=== PATIENT | male | born 1960 ===

== ENCOUNTER 2019-12-01 07:18 | Outpatient (REF) | payer OTHER, SELFPAY | END 2019-12-01 07:19 | disposition home or self-care (01) | LOC: HO.MDS 07:18 | PROVIDERS: PCP Internal Medicine; Visit Provider Internal Medicine Pulmonary Disease | DX: J45.909 Unspecified asthma, uncomplicated (principal) | CPT/HCPCS: 96372; J2357 ==

== ENCOUNTER 2019-12-15 07:10 | Outpatient (REF) | payer OTHER, SELFPAY | END 2019-12-15 07:11 | disposition home or self-care (01) | LOC: HO.MDS 07:10 | PROVIDERS: PCP Internal Medicine; Visit Provider Internal Medicine Pulmonary Disease | DX: J45.909 Unspecified asthma, uncomplicated (principal) | CPT/HCPCS: 96372; J2357 ==

== ENCOUNTER 2019-12-29 07:15 | Outpatient (REF) | payer OTHER, SELFPAY | END 2019-12-29 07:16 | disposition home or self-care (01) | LOC: HO.MDS 07:15 | PROVIDERS: PCP Internal Medicine; Visit Provider Internal Medicine Pulmonary Disease | DX: J45.909 Unspecified asthma, uncomplicated (principal) | CPT/HCPCS: 96372; J2357 ==

== ENCOUNTER 2020-01-12 07:11 | Outpatient (REF) | payer OTHER, SELFPAY | END 2020-01-12 07:12 | disposition home or self-care (01) | LOC: HO.MDS 07:11 | PROVIDERS: PCP Internal Medicine; Visit Provider Internal Medicine Pulmonary Disease | DX: J45.909 Unspecified asthma, uncomplicated (principal) | CPT/HCPCS: 96372; J2357 ==

== ENCOUNTER 2020-01-26 07:21 | Outpatient (REF) | payer OTHER, SELFPAY | END 2020-01-26 07:22 | disposition home or self-care (01) | LOC: HO.MDS 07:21 | PROVIDERS: PCP Internal Medicine; Visit Provider Internal Medicine Pulmonary Disease | DX: J45.909 Unspecified asthma, uncomplicated (principal) | CPT/HCPCS: J2357 ==

== ENCOUNTER 2020-02-09 07:15 | Outpatient (REF) | payer OTHER, SELFPAY | END 2020-02-09 07:16 | disposition home or self-care (01) | LOC: HO.MDS 07:15 | PROVIDERS: PCP Internal Medicine; Visit Provider Internal Medicine Pulmonary Disease | DX: J45.51 Severe persistent asthma with (acute) exacerbation (principal) | CPT/HCPCS: 96372; J2357 ==

== ENCOUNTER 2020-02-23 07:08 | Outpatient (REF) | payer OTHER, SELFPAY | END 2020-02-23 07:09 | disposition home or self-care (01) | LOC: HO.MDS 07:08 | PROVIDERS: PCP Internal Medicine; Visit Provider Internal Medicine Pulmonary Disease | DX: J45.50 Severe persistent asthma, uncomplicated (principal) | CPT/HCPCS: 96372; J2357 ==

== ENCOUNTER 2020-03-08 07:11 | Outpatient (REF) | payer OTHER, SELFPAY | END 2020-03-08 07:12 | disposition home or self-care (01) | LOC: HO.MDS 07:11 | PROVIDERS: PCP Internal Medicine; Visit Provider Internal Medicine Pulmonary Disease | DX: J45.50 Severe persistent asthma, uncomplicated (principal) | CPT/HCPCS: 96372; J2357 ==

== ENCOUNTER 2020-03-23 07:16 | Outpatient (REF) | payer OTHER, SELFPAY | END 2020-03-23 07:17 | disposition home or self-care (01) | LOC: HO.MDS 07:16 | PROVIDERS: PCP Internal Medicine; Visit Provider Internal Medicine Pulmonary Disease | DX: J45.51 Severe persistent asthma with (acute) exacerbation (principal) | CPT/HCPCS: 96372; J2357 ==

== ENCOUNTER 2020-04-05 07:01 | Outpatient (REF) | payer OTHER, SELFPAY | END 2020-04-05 07:02 | disposition home or self-care (01) | LOC: HO.MDS 07:01 | PROVIDERS: PCP Internal Medicine; Visit Provider Internal Medicine Pulmonary Disease | DX: J45.50 Severe persistent asthma, uncomplicated (principal) | CPT/HCPCS: 96372; J2357 ==

== ENCOUNTER 2020-04-19 07:10 | Outpatient (REF) | payer OTHER, SELFPAY | END 2020-04-19 07:11 | disposition home or self-care (01) | LOC: HO.MDS 07:10 | PROVIDERS: PCP Internal Medicine; Visit Provider Internal Medicine Pulmonary Disease | DX: J45.51 Severe persistent asthma with (acute) exacerbation (principal) | CPT/HCPCS: 96372; J2357 ==

== ENCOUNTER 2020-05-03 07:10 | Outpatient (REF) | payer OTHER, SELFPAY | END 2020-05-03 07:11 | disposition home or self-care (01) | LOC: HO.MDS 07:10 | PROVIDERS: PCP Internal Medicine; Visit Provider Internal Medicine Pulmonary Disease | DX: J45.50 Severe persistent asthma, uncomplicated (principal) | CPT/HCPCS: 96372; J2357 ==

== ENCOUNTER 2020-05-17 07:04 | Outpatient (REF) | payer OTHER, SELFPAY | END 2020-05-17 07:05 | disposition home or self-care (01) | LOC: HO.MDS 07:04 | PROVIDERS: PCP Internal Medicine; Visit Provider Internal Medicine Pulmonary Disease | DX: J45.50 Severe persistent asthma, uncomplicated (principal) | CPT/HCPCS: 96372; J2357 ==

== ENCOUNTER 2020-07-01 12:44 | Outpatient (REF) | payer OTHER, SELFPAY ==
[2020-07-01 14:31] LABS: MANUAL DIFF FLAG NO
[2020-07-01 14:36] LABS: Basophils Absolute Auto 0.1 X10*3/uL (0.0-0.2); Basophils Percent Auto 1.3 % (0-2); Eosinophils Absolute Auto 0.8 X10*3/uL (0.0-0.4); Hematocrit 49.2 % (42-52); Hemoglobin 16.4 g/dl (14.0-18.0); Imm Gran Abs Auto 0.03 X10*3/uL (0.00-0.03); Imm Gran Pct Auto 0.4 % (0.0-0.4); Lymphocytes Absolute Auto 1.4 X10*3/uL (1.2-4.9); Lymphocytes Percent Auto 19.7 % (20-40); Mean Corpuscular HGB Conc 33.3 g/dl (31.0-36.0); Mean Corpuscular Hemoglobin 31.9 pg (27.0-33.0); Mean Corpuscular Volume 95.7 fL (80-98); Mean Platelet Volume 9.8 fL (9.4-12.4); Monocytes Absolute Auto 0.7 X10*3/uL (0.1-1.2); Monocytes Percent Auto 9.3 % (2-11); Neutrophils Absolute Auto 4.2 X10*3/uL (2.0-8.3); Neutrophils Percent Auto 58.3 % (45-73); Platelet Count 198 X10*3/uL (160-400); Red Blood Count 5.14 X10*6/uL (4.60-5.80); Red Cell Distribution Width 13.3 % (11.0-16.0); White Blood Count 7.1 X10*3/uL (4.8-10.8)
[2020-07-01 14:52] LABS: D Dimer 3286 NG/ML
[2020-07-01 14:57] LABS: Anion Gap 13 (12-20); Blood Urea Nitrogen 14 mg/dL (9-16); Carbon Dioxide 26 mmol/L (22-29); Chloride 101 mmol/L (96-108); Estimated Glomerular Filt Rate > 60; Glucose Random 93 mg/dL (60-115); Potassium 4.1 mmol/L (3.3-5.1); Sodium 136 mmol/L (135-145)
[2020-07-01 15:22] LABS: Erythrocyte Sedimentation Rate 8 MM/HR (0-15)
[2020-07-02 10:07] LABS: Immunoglobulin E 776 kU/L (<OR=114)
== END 2020-07-01 12:45 | disposition home or self-care (01) ==
LOC: HO.LAB 12:44
PROVIDERS: PCP Internal Medicine; Visit Provider Hospitalist
DX: J45.50 Severe persistent asthma, uncomplicated (principal); R06.02 Shortness of breath; R78.89 Finding of other specified substances, not normally found in blood
CPT/HCPCS: 36415; 80048; 82785; 85025; 85379; 85652

== ENCOUNTER 2020-07-01 16:53 | Observation (INO) | payer OTHER, SELFPAY ==
--- NOTE | ~2020-07-01 | CT_ITS ---
EXAMINATION: CT ANGIOGRAM OF THE CHEST WITH AND WITHOUT CONTRAST (CT PULMONARY ANGIOGRAM FOR PE) CLINICAL INFORMATION: Reason for Exam pt c elevated d-dimer c sob sent in by space control agent COMPARISON: None TECHNIQUE: Prior to contrast administration, noncontrast localization images were obtained. Subsequently, multidetector volumetric imaging was performed from the thoracic inlet to below the diaphragms following the administration of 65 mL Omnipaque 350 intravenous contrast. No contrast reaction reported Sagittal, coronal, and MIP oblique sagittal reformatted images were obtained on the CT workstation, uploaded to PACS, and reviewed. This CT examination was performed using dose optimization techniques as appropriate, variously including the following: *Automated exposure control *Adjustment of mA and/or kV according to patient size (this includes techniques or standardized protocols for targeted exams where dose is matched to indication/reason for exam; i.e. extremities or head) *Use of iterative reconstruction technique Total exam dose-length product 486 mGy-cm FINDINGS: QUALITY OF STUDY/CONTRAST BOLUS: Suboptimal. PULMONARY ARTERIES: No central emboli. It is difficult given the quality to evaluate for segmental pulmonary emboli but no large occlusive thrombi are detected. THORACIC AORTA: No aneurysm or dissection. There is a common trunk of the brachiocephalic and left carotid. LUNG: No focal consolidation, nodules or masses. PLEURA: No pleural effusion or pneumothorax. MEDIASTINUM: Normal heart size. No pericardial effusion. Mildly prominent right hilar lymph node present but no gross hilar or mediastinal lymphadenopathy. No evidence of septal bowing or right heart strain. CHEST WALL/AXILLA: No axillary or internal mammary lymphadenopathy. OSSEOUS STRUCTURES: No acute or suspicious osseous abnormality. UPPER ABDOMEN: Unremarkable. No reflux of contrast into the hepatic veins to suggest elevated right heart pressures. CT/CT angio chest PE protocol IMPRESSION: Very poor quality study. No large central pulmonary emboli. Evaluation segmental emboli is more difficult due to the poor quality. VTE: Negative but extremely limited
--- NOTE | ~2020-07-01 | NM_ITS ---
EXAMINATION: NM LUNG IMAGE PERFUSION PULMONARY PERFUSION ONLY STUDY: CLINICAL INDICATION: Shortness of breath., History of asthma. PROCEDURE: Following the intravenous administration of 4.0 millicuries technetium 99m MAA, images of the chest were obtained in multiple projections using a gamma scintiphotographic camera. COMPARISON: CTA of the chest done on 07/01/2020. PERFUSION IMAGES: 1 moderate size segment of perfusion defect is present within the right upper lobe. No other no other segmental perfusion defect is seen on either side. Both lungs appear clear on prior CT study done yesterday. Using the perfusion only modified PIOPED 2 criteria, the study is considered to be nondiagnostic. NM/UT pul perfusion IMPRESSION: Single moderate sized segmental perfusion defect is present within the right upper lobe. Using the perfusion only modified PIOPED 2 criteria, the study is considered to be nondiagnostic for PE.
--- NOTE | ~2020-07-01 | US_ITS ---
EXAMINATION: BILATERAL LOWER EXTREMITY DEEP VENOUS ULTRASOUND CLINICAL INFORMATION: Question PE COMPARISON: No similar prior examinations are available for comparison. TECHNIQUE: Duplex Doppler imaging with compression maneuvers were performed of the bilateral lower extremity deep venous systems. Today's examination is mildly limited secondary to patient body habitus. FINDINGS: The bilateral visualized common femoral, femoral and popliteal veins demonstrate normal compressibility and color flow without evidence of venous thrombosis. Visualized portions of the bilateral calf veins demonstrate normal color fill-in suggesting patency. There is no evidence of a Cisse's cyst. US/US venous duplex LE BI IMPRESSION: No evidence of deep venous thrombosis involving the bilateral lower extremities.
[2020-07-01 19:03] VITALS: BP 186/83; PULSE 72; RESP 16; TEMP 36.9; O2SAT 99; BMI 59.6
--- NOTE | 2020-07-01 19:15 | ECG_ITS ---
Test Reason : SOB Blood Pressure : / mmHG Vent. Rate : 074 BPM Atrial Rate : 074 BPM P-R Int : 308 ms QRS Dur : 114 ms QT Int : 408 ms P-R-T Axes : 035 -51 056 degrees QTc Int : 452 ms Sinus rhythm with 1st degree A-V block Left anterior fascicular block Voltage criteria for left ventricular hypertrophy Abnormal ECG When compared with ECG of 18-OCT-2010 02:41, Left anterior fascicular block is now Present Referred By: Cielo Craig Electronically Signed By:Aristides Camp
[2020-07-01 20:00] VITALS: BP 168/84; PULSE 77; RESP 16; TEMP 36.9; O2SAT 99
[2020-07-01] MEDS: iohexoL 350 MG/ML 100 ML INFUS..BTL IV (20:21)
--- NOTE | 2020-07-01 20:38 | ED.SOB ---
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 He reports that he has been suffering for asthma for over the past 2-3 years and was on Xolair which was controlling his asthma up until approximately 2-3 months ago when his insurance did not cover any longer and he was switched to Flovent/albuterol and since then his cough, wheezing, shortness of breath/dyspnea on exertion and pain with inspiration has been worse. Therefore he followed up with Dr. Bryant and they decided to do blood work including a D-dimer and a D-dimer was in the 3000 therefore he recommended him to come to the emergency department for further evaluation and treatment to rule out a PE. Patient denies any fevers, dizziness, lightheadedness, nausea/vomiting, chest pain, orthopnea, palpitations, lower extremity edema, abdominal pain, back pain or any other symptoms complaints or concerns at this time. Denies recent travel and a long plane train or car ride, hypercoagulation disorder, history of cancer, history of estrogen usage, recent trauma, drug usage, recent surgery or immobilization. <ROMMEL Amador Last Filed: 07/02/20 01:22> MD elicited complaint: shortness of breath, cough and pain with inspiration <ROMMEL Amador Last Filed: 07/02/20 01:22> Pertinent past history: asthma <ROMMEL Amador Last Filed: 07/02/20 01:22> Onset (ago): month(s) (The past 2-3 months worse this week) <ROMMEL Amador - Last Filed: 07/02/20 01:22> Context: occurred during exertion <ROMMEL Amador Last Filed: 07/02/20 01:22> Timing: constant and progressively worsening <ROMMEL Amador - Last Filed: 07/02/20 01:22> Severity: moderate <ROMMEL Amador Last Filed: 07/02/20 01:22> Exacerbating factors: exertion, coughing, inspiration, talking and deep breaths <ROMMEL Amador - Last Filed: 07/02/20 01:22> Relieving factors: nothing <ROMMEL Amador Last Filed: 07/02/20 01:22> Known history of: asthma <ROMMEL Amador Last Filed: 07/02/20 01:22> Associated symptoms: pain with inspiration, cough and wheezing <ROMMEL Amador - Last Filed: 07/02/20 01:22> Treatment prior to arrival: other (Flovent and albuterol inhaler) <ROMMEL Amador Last Filed: 07/02/20 01:22> Related Data Home oxygen amount: none <ROMMEL Amador Last Filed: 07/02/20 01:22> Home Medications: Home Medications Medication Instructions Recorded Confirmed albuterol sulfate 2.5 mg CONTINUOUS NEBULIZATION Q6H 07/14/20 PRN ml Previous Rx's Medication Instructions Recorded fluticasone fur. 200 mcg-umeclid 1 inh INHALATION DAILY 30 Days #60 07/01/20 62.5 mcg-vilant 25 mcg ea inhalat.powder montelukast 10 mg tablet 10 mg PO BEDTIME 30 Days #30 tab 07/01/20 amlodipine 5 mg tablet 5 mg PO DAILY 90 Days #90 tab 07/14/20 <ROMMEL Amador Last Filed: 07/02/20 01:22> Allergies/Adverse Reactions: Allergies Allergy/AdvReac Type Severity Reaction Status Date / Time No Known Allergies Allergy Verified 07/14/20 10:20 <ROMMEL Amador - Last Filed: 07/02/20 01:22> Review of Systems Review of Systems: Constitutional : No Weight loss, No Fever, No Chills, No Night Sweats, No Fatigue, No Malaise ENT/Mouth : No Hearing loss, No Ear Pain, No Nasal Congestion, No Sinus Pain, No Hoarseness, No sore throat, No Rhinorrhea, No Swallowing Difficulty Eyes: No Eye Pain, No Swelling, No Redness, No Foreign Body, No Discharge, No Vision Changes Cardiovascular : Positive SOB/Dyspnea on Exertion, No Chest Pain, No Orthopnea, No Edema, No extremity swelling, No Palpitations Respiratory : Positive Cough, positive wheezing, positive dubon colored sputum Gastrointestinal : No Nausea, No Vomiting, No Diarrhea, No abdominal Pain, No Hematochezia, No Melena Genitourinary : No irregular bleeding, No Dysuria, No Urinary Frequency, No Hematuria, No Urinary Incontinence, No Urgency, No Flank Pain, No Urinary Flow Changes, No Hesitancy Musculoskeletal : No joint pain, No Myalgias, No Joint Swelling Skin : No Skin Lesions, No rash Neuro : No Weakness, No Numbness, No Paresthesias, No Loss of Consciousness, No Dizziness, No Headache Psych : No Anxiety/Panic, No Depression, No SI/HI/AH/VH Heme/Lymph: No Bruising, No Bleeding,No Lymphadenopathy Endocrine : No Polyuria, No Polydipsia, No Temperature Intolerance <ROMMEL Amador - Last Filed: 07/02/20 01:22> Yes all other systems are reviewed and are negative <ROMMEL Amador - Last Filed: 07/02/20 01:22> [facility]LY [facility] Past Medical History Attestation statement: The following information was validated with the patient. 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 <ROMMEL Amador Last Filed: 07/02/20 01:22> Social History Social History: Social History Household Members: Spouse Housing: House Do you presently have visiting nurse or other home services: No Alcohol intake: current Alcohol intake frequency: a few times a week Patient Tobacco Use Status: Never used Tobacco service: No Current occupational status: employed <ROMMEL Amador - Last Filed: 07/02/20 01:22> Physical Exam Vital Signs: Vital Signs: Last Vital Signs Temp 97.1 F 07/03/20 11:42 Pulse 73 07/03/20 11:42 Resp 19 07/03/20 11:42 BP 153/72 H 07/03/20 11:42 Pulse Ox 96 07/03/20 11:42 Body Mass Index 59.6 vital signs have been reviewed as normal and appeared to be correct. Blood pressure hypertensive at 186/83. Heart rate normal. Respiration rate normal. Temperature normal. Oxygen saturation normal. <ROMMEL Amador - Last Filed: 07/02/20 01:22> Vital Signs: Last Vital Signs Temp 97.1 F 07/03/20 11:42 Pulse 73 07/03/20 11:42 Resp 19 07/03/20 11:42 BP 153/72 H 07/03/20 11:42 Pulse Ox 96 07/03/20 11:42 Body Mass Index 59.6 <Clemente Gallegos MD - Last Filed: 07/27/20 11:41> Appearance: Alert. Oriented X3. No acute distress. Head: Normal external exam. Normocephalic. Eyes: PERRLA. EOMI. Conjunctiva and sclera normal. Eyelids normal. ENT: Pharynx normal. Uvula midline. Moist mucous membranes. No trismus noted. No drooling noted. No muffled voice noted. Neck: Normal inspection. Neck supple. FROM. No adenopathy. No meningeal signs. CVS: Normal heart rate and rhythm. Heart sound normal. No murmurs noted. Pulses normal throughout. Respiratory: No respiratory distress. Painless inspiration. Breath sounds normal. No wheezes/rales/rhonchi noted. Chest nontender. No accessory muscle usage noted or decreased air movement noted. Abdomen: Soft and nontender. Nondistended. No guarding. No rigidity. Bowel sounds normal in all 4 quadrants. No distention noted. No organomegaly noted. No visible injury noted. No rebound tenderness. Negative Rovsing sign. Negative obturator's sign. Negative psoas sign. Negative Dan sign. Back: No CVA tenderness. Full range of motion noted. Skin: Skin warm and dry. Normal skin color. Normal skin turgor. No rashes/lesions/lacerations noted. Extremities: No lower extremity edema noted. No calf tenderness noted. Extremities exhibit normal range of motion. Extremities nontender. Neuro: Oriented X 3. No motor deficit. No sensory deficit. Reflexes normal. Normal steady gait. <ROMMEL Amador - Last Filed: 07/02/20 01:22> Course Course Course Narrative: 22pm - labs reviewed and patient does have an elevated D-dimer of 3286. Total bilirubin 1.1. Troponin 8.9. Otherwise all other labs within normal limits. EKG sinus rhythm with first-degree AV block otherwise no acute ischemic changes are noted. Similar compared to prior EKG 10/18/2010. - CTA of chest for PE revealed very poor quality study. No large central pulmonary emboli. Evaluation segmental emboli is more difficult due to the poor quality. VTE negative but extremely limited. - therefore patient will need a repeat troponin -. Patient will also need a V/Q scan tomorrow morning due to they are not doing V/Q scans at this time. I also consulted with Dr. Bryant and Dr. Bryant agrees with the plan that the patient should stay here for a V/Q scan and if the V/Q scan is un diagnostic at the patient should be re-scanned with a CTA on Saturday or Saturday. Patient is agreeable to staying here in the hospital. . <ROMMEL Amaodr - Last Filed: 07/02/20 01:22> I have reviewed the chart <Clemente Gallegos MD - Last Filed: 07/27/20 11:41> Reevaluation(s) Reevaluation #1: - repeat troponin negative delta. BNP 100. Patient is still being admitted. 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 He reports that he has been suffering for asthma for over the past 2-3 years and was on Xolair which was controlling his asthma up until approximately 2-3 months ago when his insurance did not cover any longer and he was switched to Flovent/albuterol and since then his cough, wheezing, shortness of breath/dyspnea on exertion and pain with inspiration has been worse. - on exam patient is alert and oriented x3. Mildly hypertensive at 186/83 otherwise all other vitals are within normal limits. Patient is not tachypneic, tachycardic or hypoxic at this time. No focal neuro deficits noted. CV RRR. Lungs clear to auscultation. Abdomen is soft and nontender. No lower extremity edema or calf tenderness noted. - Plan: Labs, CTA of chest for PE, EKG and a L of IV fluids and re-evaluate. <ROMMEL Amador - Last Filed: 07/02/20 01:22> Medical Records Attestation: I reviewed the patient's medical records. <ROMMEL Amador - Last Filed: 07/02/20 01:22> Lab Data Attestation: I reviewed the patient's lab results. <ROMMEL Amador - Last Filed: 07/02/20 01:22> Result diagrams: : 07/02/20 06:55 07/02/20 06:55 <ROMMEL Amador - Last Filed: 07/02/20 01:22> Labs: Lab Results 07/01/20 07/01/20 07/01/20 Range/Units 13:45 20:38 20:38 Hold Purple Top SEE NOTE PT 12.9 (10.8-13.0) SEC INR 1.1 (0.9-1.1) APTT 32.8 (24.1-38.0) SEC Total Bilirubin 1.1 H (0.0-1.0) mg/dL Direct Bilirubin 0.5 (0.0-0.5) mg/dL AST 28 (5-37) U/L ALT 20 (0-40) U/L Alkaline Phosphatase 97 (39-117) U/L Troponin I High Sens (<3.5-35.0) ng/L Total Protein 8.2 H (6.5-8.0) g/dL Albumin 3.7 (3.5-5.0) g/dL Coronavirus (PCR) (Negative) Influenza Type A (PCR) (Negative) Influenza Type B (PCR) (Negative) RSV RNA Qual (PCR) (Negative) 07/01/20 07/01/20 Range/Units 20:38 20:41 Hold Purple Top PT (10.8-13.0) SEC INR (0.9-1.1) APTT (24.1-38.0) SEC Total Bilirubin (0.0-1.0) mg/dL Direct Bilirubin (0.0-0.5) mg/dL AST (5-37) U/L ALT (0-40) U/L Alkaline Phosphatase (39-117) U/L Troponin I High Sens 8.9 (<3.5-35.0) ng/L Total Protein (6.5-8.0) g/dL Albumin (3.5-5.0) g/dL Coronavirus (PCR) NEGATIVE (Negative) Influenza Type A (PCR) NEGATIVE (Negative) Influenza Type B (PCR) NEGATIVE (Negative) RSV RNA Qual (PCR) NEGATIVE (Negative) <ROMMEL Amador - Last Filed: 07/02/20 01:22> Lab Results 07/01/20 07/01/20 07/01/20 Range/Units 13:45 20:38 20:38 Hold Purple Top SEE NOTE PT 12.9 (10.8-13.0) SEC INR 1.1 (0.9-1.1) APTT 32.8 (24.1-38.0) SEC Total Bilirubin 1.1 H (0.0-1.0) mg/dL Direct Bilirubin 0.5 (0.0-0.5) mg/dL AST 28 (5-37) U/L ALT 20 (0-40) U/L Alkaline Phosphatase 97 (39-117) U/L Troponin I High Sens (<3.5-35.0) ng/L Total Protein 8.2 H (6.5-8.0) g/dL Albumin 3.7 (3.5-5.0) g/dL Coronavirus (PCR) (Negative) Influenza Type A (PCR) (Negative) Influenza Type B (PCR) (Negative) RSV RNA Qual (PCR) (Negative) 07/01/20 07/01/20 Range/Units 20:38 20:41 Hold Purple Top PT (10.8-13.0) SEC INR (0.9-1.1) APTT (24.1-38.0) SEC Total Bilirubin (0.0-1.0) mg/dL Direct Bilirubin (0.0-0.5) mg/dL AST (5-37) U/L ALT (0-40) U/L Alkaline Phosphatase (39-117) U/L Troponin I High Sens 8.9 (<3.5-35.0) ng/L Total Protein (6.5-8.0) g/dL Albumin (3.5-5.0) g/dL Coronavirus (PCR) NEGATIVE (Negative) Influenza Type A (PCR) NEGATIVE (Negative) Influenza Type B (PCR) NEGATIVE (Negative) RSV RNA Qual (PCR) NEGATIVE (Negative) <Clemente Gallegos MD - Last Filed: 07/27/20 11:41> Imaging Data CT a for PE: Attestation: I personally reviewed and interpreted this imaging study as follows: <ROMMEL Amador - Last Filed: 07/02/20 01:22> Radiologist's impression: FINDINGS: QUALITY OF STUDY/CONTRAST BOLUS: Suboptimal. PULMONARY ARTERIES: No central emboli. It is difficult given the quality to evaluate for segmental pulmonary emboli but no large occlusive thrombi are detected. THORACIC AORTA: No aneurysm or dissection. There is a common trunk of the brachiocephalic and left carotid. LUNG: No focal consolidation, nodules or masses. PLEURA: No pleural effusion or pneumothorax. MEDIASTINUM: Normal heart size. No pericardial effusion. Mildly prominent right hilar lymph node present but no gross hilar or mediastinal lymphadenopathy. No evidence of septal bowing or right heart strain. CHEST WALL/AXILLA: No axillary or internal mammary lymphadenopathy. OSSEOUS STRUCTURES: No acute or suspicious osseous abnormality. UPPER ABDOMEN: Unremarkable. No reflux of contrast into the hepatic veins to suggest elevated right heart pressures. CT/CT angio chest PE protocol IMPRESSION: Very poor quality study. No large central pulmonary emboli. Evaluation segmental emboli is more difficult due to the poor quality. VTE: Negative but extremely limited <ROMMEL Amador Last Filed: 07/02/20 01:22> ECG Data ECG interpretation date: 07/01/20 <ROMMEL Amador - Last Filed: 07/02/20 01:22> ECG interpretation time: 20:43 <ROMMEL Amador Last Filed: 07/02/20 01:22> Interpretation: Sinus rhythm with 1st degree AV block with a ventricular rate of 74 with left anterior fascicular block with voltage criteria for for left ventricular hypertrophy no acute ischemic changes noted similar when compared to prior EKG 10/18/2010 <ROMMEL Amador Last Filed: 07/02/20 01:22> Critical Care Time Critical Care Time Critical Care Time: Yes <ROMMEL Amador Last Filed: 07/02/20 01:22> Total Critical Care Time: 60 <ROMMEL Amador Last Filed: 07/02/20 01:22> Attestation: I personally attest to this time spent taking care of the patient <ROMMEL Amador Last Filed: 07/02/20 01:22> Discharge Plan Discharge Clinical Impression: Shortness of breath <ROMMEL Amador Last Filed: 07/02/20 01:22> Patient Disposition: Admitted As Inpatient <ROMMEL Amador Last Filed: 07/02/20 01:22> Interventions: Admission Worksheet (ED) Last Done: 07/02/20 05:54 <ROMMEL Amador Last Filed: 07/02/20 01:22> Discharge Date/Time: 07/02/20 06:00 <ROMMEL Amador Last Filed: 07/02/20 01:22>
[2020-07-01 20:45] LABS: Alanine Aminotransferase 20 U/L (0-40); Albumin Level 3.7 g/dL (3.5-5.0); Alkaline Phosphatase 97 U/L (39-117); Aspartate Amino Transferase 28 U/L (5-37); Bilirubin Direct 0.5 mg/dL (0.0-0.5); Bilirubin Total 1.1 mg/dL (0.0-1.0); Total Protein 8.2 g/dL (6.5-8.0)
[2020-07-01 20:50] LABS: INTERNATIONAL NORM RATIO 1.1 (0.9-1.1); Prothrombin Time 12.9 SEC (10.8-13.0)
[2020-07-01 20:52] LABS: Partial Thromboplastin Time 32.8 SEC (24.1-38.0)
--- NOTE | 2020-07-01 21:03 | PC.NURSE ---
Per Paloma in laboratory, some of the newly ordered labs to be obtained from today's labs that were drawn earlier. Only needed some labs that were drawn and sent for analysis. Okayed by ROMMEL Craig. Awaiting results. Pt refuses changeover to hospital attire at this time unless I have to be admitted or something . PA aware and okayed. Pt otherwise denies complaints/needs at this time.
[2020-07-01 21:49] LABS: Influenza A PCR NEGATIVE (Negative); Influenza B PCR NEGATIVE (Negative); Resp Syncy Virus RNA Qual PCR NEGATIVE (Negative); SARS COV2 PCR INHOUSE NEGATIVE (Negative)
[2020-07-01 22:00] VITALS: BP 149/70; PULSE 67; RESP 17; TEMP 36.8; O2SAT 99
[2020-07-01 22:46] LABS: Troponin-I High Sensitivity 8.9 ng/L (<3.5-35.0)
[2020-07-02 00:19] VITALS: BP 149/70; PULSE 59; RESP 20; TEMP 36.8; O2SAT 97
--- NOTE | 2020-07-02 00:24 | PM.IMHP ---
History of Present Illness Date of Service: 07/02/20 Chief Complaint: SOB 60-year-old male with a past medical history of asthma, renal calculi presented to the hospital with a chief complaint of shortness of breath. Patient follows with Dr. Bryant in pulmonology Clinic where he has been complaining that has been having increased shortness of breath the past few weeks; had D-dimer done as outpatient which was elevated and subsequently sent to the ER for possible CT scan. Patient denies any chest pain palpitations. Denies any numbness tingling. Mentions he has been having shortness of breath which has been gradually worsening. Denies any fever chills cough. Review of all other systems is negative except mentioned above ER course: ER team mentioned that patient CT angio of the chest was done which was a poor study but noted no pulmonary embolism in the major vessels but segmental subsegmental was not evaluated because of the pool study. Admitted to the hospital for V/Q scan. Patient agreed to stay in the hospital. Patient was given a dose of therapeutic Lovenox. [facility] Medical History Asthma Kidney calculi Social History Household Members: Spouse Housing: House Do you presently have visiting nurse or other home services: No Smoking Status: Never smoker Use of substances other than those prescribed or required for medical reasons: No Currently Displaying Signs/Symptoms of Drug Intoxication Withdrawal: No Have you been hit, kicked, punched, or otherwise hurt by someone within the past year? If so, by whom?: No Do you feel safe in your current relationship?: Yes Is there a partner from a previous relationship who is making you feel unsafe now?: No Are you made to feel afraid or neglected: No Advance Directives: No Advance Directives Information Provided: Yes Do you have thoughts of harming others: None Do you have a plan to hurt others: No Plan Recently lost weight without trying: No Eating poorly because of decreased appetite: No Nutrition Risks: No Nutritional Risk Poor oral hygiene: No service: No Current occupational status: employed Meds Allergies Allergy/AdvReac Type Severity Reaction Status Date / Time No Known Allergies Allergy Verified 07/01/20 13:07 Active Medications: Current Medications Generic Name Dose Route Start Last Admin Trade Name Freq PRN Reason Stop Dose Admin Acetaminophen 650 mg 07/02/20 00:17 Acetaminophen 325 Mg Tablet PO Q6H PRN Pain, Mild (Pain Scale 1-3) Albuterol/Ipratropium 3 ml 07/02/20 00:17 Albuterol/Iprat 2.5/0.5mg 3 Ml Ampul.Neb INHALE RQ4H PRN Shortness of Breath/Wheezing Nitroglycerin 0.4 mg 07/02/20 00:17 Nitroglycerin 0.4 Mg Tab.Subl SUBLINGUAL Q5M PRN Chest Pain Pharmacy Consult 1 each 07/02/20 00:06 Consult Rx Perform Med Rec MISCELLANE ONCE PRN Consult order Sodium Chloride 3 ml 07/02/20 08:00 0.9 % Sodium Chloride Flush 3 Ml Syringe IVFLUSH QSHIFT DARSHANA Physical Exam Vital Signs and Narrative: Vital Signs: Last Vital Signs Temp 98.3 F 07/01/20 22:00 Pulse 67 07/01/20 22:00 Resp 17 07/01/20 22:00 BP 149/70 H 07/01/20 22:00 Pulse Ox 99 07/01/20 22:00 Body Mass Index 59.6 Gen: Appears be in no acute distress; obese HEENT: NCAT, Moist mucosa. Pulmonary: Vesicular breath sounds, fair air entry CVS: Normal S1-S2 Abdomen: BS+, Soft, Nontender Extremities: Warm well perfused Neuro: Alert and awake. Results Labs CBC and Chem 7: 07/02/20 06:55 07/02/20 06:55 Labs: Laboratory Results - last 24 hr 07/01/20 07/01/20 07/01/20 13:45 20:38 20:38 Hold Purple Top SEE NOTE PT 12.9 INR 1.1 APTT 32.8 Total Bilirubin 1.1 H Direct Bilirubin 0.5 AST 28 ALT 20 Alkaline Phosphatase 97 Troponin I High Sens Total Protein 8.2 H Albumin 3.7 Coronavirus (PCR) Influenza Type A (PCR) Influenza Type B (PCR) RSV RNA Qual (PCR) 07/01/20 07/01/20 20:38 20:41 Hold Purple Top PT INR APTT Total Bilirubin Direct Bilirubin AST ALT Alkaline Phosphatase Troponin I High Sens 8.9 Total Protein Albumin Coronavirus (PCR) NEGATIVE Influenza Type A (PCR) NEGATIVE Influenza Type B (PCR) NEGATIVE RSV RNA Qual (PCR) NEGATIVE Imaging Radiologist's Impressions: Impressions Chest CTA 07/01/20 19:15 IMPRESSION: Very poor quality study. No large central pulmonary emboli. Evaluation segmental emboli is more difficult due to the poor quality. VTE: Negative but extremely limited Assessment and Plan (1) Shortness of breath: Status: Acute 60-year-old male with a past medical history of asthma, obesity, renal calculi presented to the hospital with a chief complaint of shortness of breath. Shortness of breath: Patient had elevated D-dimer. CT angio of the chest was Will pole to study. Given therapeutic Lovenox. Will obtain V/Q scan in the morning. EKG showed first-degree AV block, normal sinus rhythm; troponin x1 negative follow-up troponin pending Will obtain echocardiogram Recommended outpatient pulmonary function test and sleep studies. Asthma: Stable duo nebs p.r.n. DVT prophylaxis: Patient on Lovenox Code status: Full code
[2020-07-02 00:59] LABS: B Type Natriuretic Peptide 100 pg/mL (<100); Troponin-I High Sensitivity 11.5 ng/L (<3.5-35.0)
[2020-07-02] MEDS: Enoxaparin Sodium 100 MG/ML SYRINGE 200 MG SUBCUT ×2 (02:02→14:18)
--- NOTE | 2020-07-02 05:33 | PC.NURSE ---
This RN called to give RN to RN report to Med/door repairman. Med/door repairman unavailable at this time. Awaiting call back.
[2020-07-02 06:29] VITALS: BP 166/92; PULSE 67; RESP 20; TEMP 36; O2SAT 97
[2020-07-02 07:10] LABS: MANUAL DIFF FLAG NO
[2020-07-02 07:19] LABS: Basophils Absolute Auto 0.1 X10*3/uL (0.0-0.2); Basophils Percent Auto 1.1 % (0-2); Eosinophils Absolute Auto 0.8 X10*3/uL (0.0-0.4); Eosinophils Percent Auto 10.7 % (0-4); Hematocrit 47.9 % (42-52); Imm Gran Abs Auto 0.02 X10*3/uL (0.00-0.03); Imm Gran Pct Auto 0.3 % (0.0-0.4); Lymphocytes Absolute Auto 1.5 X10*3/uL (1.2-4.9); Lymphocytes Percent Auto 20.3 % (20-40); Mean Corpuscular HGB Conc 33.4 g/dl (31.0-36.0); Mean Corpuscular Volume 95.8 fL (80-98); Mean Platelet Volume 9.8 fL (9.4-12.4); Monocytes Absolute Auto 0.8 X10*3/uL (0.1-1.2); Neutrophils Absolute Auto 4.4 X10*3/uL (2.0-8.3); Neutrophils Percent Auto 57.6 % (45-73); Platelet Count 187 X10*3/uL (160-400); Red Cell Distribution Width 13.5 % (11.0-16.0); White Blood Count 7.6 X10*3/uL (4.8-10.8)
[2020-07-02 07:33] LABS: Anion Gap 12 (12-20); Blood Urea Nitrogen 11 mg/dL (9-16); Calcium 8.8 mg/dL (8.4-10.2); Carbon Dioxide 25 mmol/L (22-29); Chloride 103 mmol/L (96-108); Creatinine Clr Calc Pharmacy 175.5; Estimated Glomerular Filt Rate > 60; Glucose Random 102 mg/dL (60-115); Potassium 3.9 mmol/L (3.3-5.1); Sodium 136 mmol/L (135-145)
[2020-07-02] MEDS: 0.9 % Sodium Chloride Flush 3 ML SYRINGE IVFLUSH ×2 (08:16→14:19)
[2020-07-02 12:00] VITALS: BP 180/85; PULSE 76; RESP 20; TEMP 35.9; O2SAT 98
[2020-07-02 15:56] VITALS: BP 157/70; PULSE 66; RESP 18; TEMP 36.3; O2SAT 97
--- NOTE | 2020-07-02 16:04 | MHC.CM.PN ---
PATIENT LIVES WITH HIS AND DAUGHTER. 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 NO DMR OR VNA SERVICES IN THE HOME. PLAN IS TO DISCHARGE SATURDAY WITH NO NEED FOR SERVICES. TO TRANSPORT. FISHER 07/02 IN CHART.
[2020-07-02 19:48] VITALS: BP 166/77; PULSE 62; RESP 18; TEMP 36.5; O2SAT 95
[2020-07-02 23:55] VITALS: BP 148/70; PULSE 69; RESP 18; TEMP 36.7; O2SAT 96
[2020-07-03] MEDS: Enoxaparin Sodium 100 MG/ML SYRINGE 200 MG SUBCUT (00:21)
[2020-07-03 04:00] VITALS: BP 187/94; PULSE 62; RESP 18; TEMP 36.7; O2SAT 96
[2020-07-03 08:00] VITALS: BP 170/70; PULSE 61; RESP 19; TEMP 36.9; O2SAT 98
--- NOTE | 2020-07-03 09:32 | P.DS_ITS ---
DS: Providers Provider Date of Service: 07/19/20 Date of admission: 07/02/20 00:17 Primary care physician: Harshad Horn MD Consults: 07/02/20 14:56 Consult to Pulmonology Routine Consulting Provider: [facility] Pul[facility]ology [facility] Reason for consultation: respiratory failure, eosinophilc asthma Has provider been notified: Yes DS: Diagnosis Discharge Diagnosis (1) Shortness of breath: Status: Acute DS: Medications Discharge Medications Home Medications: Previous Rx's Medication Instructions Recorded albuterol sulfate 2.5 mg INHALATION Q4H PRN 30 Days 07/01/20 #360 ml azithromycin 500 mg tablet 500 mg PO DAILY 3 Days #3 tab 07/01/20 fluticasone fur. 200 mcg-umeclid 1 inh INHALATION DAILY 30 Days #60 07/01/20 62.5 mcg-vilant 25 mcg ea inhalat.powder montelukast 10 mg tablet 10 mg PO BEDTIME 30 Days #30 tab 07/01/20 DS: Summary Hospital Course Hospital Course: Chief Complaint: SOB 60-year-old male with a past medical history of asthma, renal calculi presented to the hospital with a chief complaint of shortness of breath. Patient follows with Dr. Bryant in pulmonology Clinic where he has been complaining that has been having increased shortness of breath the past few weeks; had D-dimer done as outpatient which was elevated and subsequently sent to the ER for possible CT scan. Patient denies any chest pain palpitations. Denies any numbness tingling. Mentions he has been having shortness of breath which has been gradually worsening. Denies any fever chills cough. Review of all other systems is negative except mentioned above ER course: ER team mentioned that patient CT angio of the chest was done which was a poor study but noted no pulmonary embolism in the major vessels but segmental subsegmental was not evaluated because of the pool study. Admitted to the hospital for V/Q scan. Patient agreed to stay in the hospital. Patient was given a dose of therapeutic Lovenox. Hospital course: patient was admitted overnight and treted with inhalers, because DDimer was high a CT of chest was done and was pooor study for PE, he w as given a dose of Lovenox and then had a VQ scan done and this was non diagnositc, he is not hypoxic, no tachycardia, no DVT symptoms and doubt there is PE, I got pulmonary consultation to help figure etiology of his initial symptoms that have resolved, likely hypoventilation component with eosinophilic asthma Time Spent with Patient Time attestation: Total time spent providing and/or coordinating discharge services: Discharge coordination time: Greater than 30 minutes Quality: Stroke Does the patient have a stroke diagnosis?: No Physical Exam Vital Signs: Vital Signs: Last Vital Signs Temp 98.5 F 07/03/20 08:00 Pulse 61 07/03/20 08:00 Resp 19 07/03/20 08:00 BP 170/70 H 07/03/20 08:00 Pulse Ox 98 07/03/20 08:00 Body Mass Index 59.6 Constitutional Awake and Alert, No apparent distress Neck Supple, No lymphadenopathy Cardiovascular RRR, No M/R/G, S1 S2, No S3 S4, No pedal edema Respiratory Lungs clear, No respiratory distress Gastrointestinal Non tender, Non-distended Skin No rash Neurological Alert & oriented x3 Psychological Appropriate affect Discharge Plan Discharge Anticipated Discharge Date/Time: 07/03/20 09:35 Patient Disposition: Home, Self-Care Referrals: Harshad Horn MD [Primary Care Provider] - 1 Week Discharge Medications: Continued Trelegy Ellipta 200-62.5-25 mcg blister with device 1 inh inhalation DAILY 30 Days Qty: 60 RF: 12 montelukast [Singulair] 10 mg tablet 10 mg PO BEDTIME 30 Days Qty: 30 RF: 11 No Action albuterol sulfate 2.5 mg /3 mL (0.083 %) solution for nebulization 2.5 mg continuous nebulization Q6H PRN (Reason: shortness of breath or wheezing) RF: 0 amlodipine 5 mg tablet 5 mg PO DAILY 90 Days Qty: 90 RF: 1 Discharge Orders: Discharge Order (Routine); Ordered 07/03/20 Ordered By: Nathaniel Sanz Diet: advance to usual diet Activity on Discharge: As tolerated Stand Alone Forms: Patient Portal Discharge page Care Plan Goals: Pre very hospitalization. Health Concerns: Eosinophilic asthma. 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 Assessment: See above Discharge Date/Time: 07/03/20 12:39
[2020-07-03] MEDS: amLODIPine Besylate 5 MG TABLET PO (10:53)
--- NOTE | 2020-07-03 11:30 | P.CONPL_ITS ---
History of Present Illness History of Present Illness Consult date: 07/03/20 Requesting physician: Nathaniel Sanz Reason for consult: asthma Chief complaint: SOB Narrative: 60-year-old gentleman, nonsmoker, with underlying history of severe persistent allergic asthma, previously controlled on Xolair. Unfortunately, recently patient's insurance stopped covering Xolair and his symptoms have slowly been worsening. He continued to use Flovent and albuterol MDI, all by it with poor control. He has been recently seen at the pulmonary office for concerns for worsening dyspnea and prescribed Trelegy, Singulair, and a course of azithromycin. Also his D-dimer was checked and it was elevated. Patient has been directed to the emergency room where he has had a chest CT angiogram that was negative for pulmonary emboli. He has been admitted to inpatient service from management of an acute asthma exacerbation. Today his wheezing has res olved completely and his dyspnea is at baseline. Review of Systems Constitutional: Constitutional: Denies daytime sleepiness, Denies excessive sweating, Denies fatigue, Denies fever(s), Denies lethargy, Denies malaise, Denies night sweats, Denies snoring and Denies weight loss Eyes: Eyes: Denies blurry vision and Denies itchy eyes ENT: Denies nasal congestion, Denies post nasal drip, Denies sinus pain, Denies sinus pressure and Denies other ( Thrush) Cardiovascular: Cardiovascular: Denies chest pain, Denies pedal edema, Denies dyspnea, Denies orthopnea and Denies paroxysmal nocturnal dyspnea Respiratory: Respiratory: Denies cough, Denies hemoptysis, Denies excessive phlegm production, Denies dyspnea, Denies snoring and Denies wheezing Gastrointestinal: Gastrointestinal: Denies abdominal pain and Denies heartburn Musculoskeletal: Musculoskeletal: Denies myalgias, Denies arthralgias and Denies joint swelling Integumentary/Breasts: Skin/Breast: Denies rash Neurologic: Denies memory loss and Denies seizure-like activity Psychiatric: Psychiatric: Denies abnormal sleep pattern, Denies anxiety and Denies memory loss Endocrine: Endocrine: Denies excessive sweating, Denies fatigue and Denies heat intolerance Hematologic/Lymphatic: Hematologic/Lymphatic: Denies easy bruising Allergic/Immunologic: Allergic/Immunologic: Denies itchy eyes, Denies seasonal rhinorrhea and Denies wheezing PMFSH Past Medical History Medical History Asthma Kidney calculi Social History Social History Household Members: Spouse Housing: House Do you presently have visiting nurse or other home services: No Smoking Status: Never smoker Use of substances other than those prescribed or required for medical reasons: No Currently Displaying Signs/Symptoms of Drug Intoxication Withdrawal: No Have you been hit, kicked, punched, or otherwise hurt by someone within the past year? If so, by whom?: No Do you feel safe in your current relationship?: Yes Is there a partner from a previous relationship who is making you feel unsafe now?: No Are you made to feel afraid or neglected: No Advance Directives: No Advance Directives Information Provided: Yes Do you have thoughts of harming others: None Do you have a plan to hurt others: No Plan Recently lost weight without trying: No Eating poorly because of decreased appetite: No Nutrition Risks: No Nutritional Risk Poor oral hygiene: No service: No Current occupational status: employed Meds Allergies Allergy/AdvReac Type Severity Reaction Status Date / Time No Known Allergies Allergy Verified 07/01/20 13:07 Active Medications: Current Medications Generic Name Dose Route Start Last Admin Trade Name Freq PRN Reason Stop Dose Admin Acetaminophen 650 mg 07/02/20 00:17 Acetaminophen 325 Mg Tablet PO Q6H PRN Pain, Mild (Pain Scale 1-3) Albuterol/Ipratropium 3 ml 07/02/20 00:17 Albuterol/Iprat 2.5/0.5mg 3 Ml Ampul.Neb INHALE RQ4H PRN Shortness of Breath/Wheezing Amlodipine Besylate 5 mg 07/03/20 09:45 07/03/20 10:53 Amlodipine Besylate 5 Mg Tablet PO 5 mg DAILY DARSHANA Administration Protocol Enoxaparin Sodium 200 mg 07/02/20 01:15 07/03/20 00:21 Enoxaparin Sodium 100 Mg/Ml Syringe SUBCUT 200 mg Q12H DARSHANA Administration Nitroglycerin 0.4 mg 07/02/20 00:17 Nitroglycerin 0.4 Mg Tab.Subl SUBLINGUAL Q5M PRN Chest Pain Sodium Chloride 3 ml 07/02/20 08:00 07/03/20 08:18 0.9 % Sodium Chloride Flush 3 Ml Syringe IVFLUSH Not Given QSHIFT DARSHANA Physical Exam Vital Signs: Vital Signs: Last Vital Signs Temp 98.5 F 07/03/20 08:00 Pulse 61 07/03/20 08:00 Resp 19 07/03/20 08:00 BP 170/70 H 07/03/20 08:00 Pulse Ox 98 07/03/20 08:00 Body Mass Index 59.6 Const: General: no acute distress, alert and awake Nutritional Appearance: obese Eyes: Sclerae: sclerae normal EOM: EOMs intact bilaterally Neck: Neck: Yes no lymphadenopathy, Yes trachea midline and Yes supple Resp: Effort & Inspection: normal respiratory effort and no respiratory distress Auscultation: clear to auscultation bilaterally Cardio: Rate: regular rate Rhythm: regular rhythm Heart sounds: no gallops, no murmurs and no rubs GI: Palpation (GI): Soft to palpation and Other GI palpation findings present ( Nontender) Auscultation: normal bowel sounds Extrem: General: Yes no pedal edema, No clubbing, No cyanosis and Yes venous stasis dermatitis (Bilateral lower extremity) Results Laboratory Findings CBC and BMP: 07/02/20 06:55 07/02/20 06:55 ABG, PT/INR, D-dimer: PT/INR, D-dimer PT 12.9 SEC (10.8-13.0) 07/01/20 20:38 INR 1.1 (0.9-1.1) 07/01/20 20:38 Abnormal lab findings: Abnormal Labs 07/01/20 07/02/20 13:45 06:55 Eos % (Auto) 10.7 H Eos # (Auto) 0.8 H Total Bilirubin 1.1 H Total Protein 8.2 H Assessment and Plan (1) Asthma: Status: Acute Impression: 60-year-old gentleman with asthma exacerbation secondary to stopping Xolair because his insurance no longer covers it. Now with significant improvement and complete resolution of wheezing. Recommendation: Agree with restarting his outpatient regimen of trilogy, Sin gulair, and albuterol MDI. Does not require systemic glucocorticoids at this time. Patient has a follow-up scheduled with pulmonary office.
[2020-07-03 11:42] VITALS: BP 153/72; PULSE 73; RESP 19; TEMP 36.2; O2SAT 96
--- NOTE | 2020-07-03 12:05 | MHC.CM.PN ---
pt dcd today no skilled servceis ordered by
== END 2020-07-03 12:39 | disposition home or self-care (01) ==
LOC: HO.ED 07-02 00:05 → HO.EDOVER 07-02 00:26 → HO.S3 07-02 05:27
PROVIDERS: Physician Assistant Medical; Admitting Provider Hospitalist; Emergency Provider Emergency Medicine; PCP Internal Medicine; Visit Provider Internal Medicine
DX: R06.02 Shortness of breath (principal); J82.83 Eosinophilic asthma; R79.1 Abnormal coagulation profile; I44.0 Atrioventricular block, first degree; I44.4 Left anterior fascicular block; R94.31 Abnormal electrocardiogram [ECG] [EKG]; Z20.822 Contact with and (suspected) exposure to COVID-19; Z87.442 Personal history of urinary calculi; Z79.899 Other long term (current) drug therapy
CPT/HCPCS: 0241U; 36415; 71275; 78580; 80048; 80076; 83880; 84484; 85025; 85610; 85730; 93005; 93970; 96372; 99218; 99285; 99291; A9540; J1650; Q9967

== ENCOUNTER → 2020-08-19 09:23 | Outpatient (BNVA) | payer OTHER, SELFPAY | PROVIDERS: PCP Internal Medicine; Visit Provider Internal Medicine Pulmonary Disease ==

== ENCOUNTER 2020-09-21 07:10 | Outpatient (REF) | payer OTHER, SELFPAY | END 2020-09-21 07:11 | disposition home or self-care (01) | LOC: HO.MDS 07:10 | PROVIDERS: PCP Internal Medicine; Visit Provider Internal Medicine Pulmonary Disease | DX: J45.50 Severe persistent asthma, uncomplicated (principal) | CPT/HCPCS: 96372; J2357 ==

== ENCOUNTER 2020-10-05 07:11 | Outpatient (REF) | payer OTHER, SELFPAY | END 2020-10-05 07:12 | disposition home or self-care (01) | LOC: HO.MDS 07:11 | PROVIDERS: PCP Internal Medicine; Visit Provider Internal Medicine Pulmonary Disease | DX: J45.50 Severe persistent asthma, uncomplicated (principal) | CPT/HCPCS: 96372; J2357 ==

== ENCOUNTER 2020-10-19 07:23 | Outpatient (REF) | payer OTHER, SELFPAY | END 2020-10-19 07:24 | disposition home or self-care (01) | LOC: HO.MDS 07:23 | PROVIDERS: PCP Internal Medicine; Visit Provider Internal Medicine Pulmonary Disease | DX: J45.50 Severe persistent asthma, uncomplicated (principal) | CPT/HCPCS: 96372; J2357 ==

== ENCOUNTER 2020-11-02 07:07 | Outpatient (REF) | payer OTHER, SELFPAY | END 2020-11-02 07:08 | disposition home or self-care (01) | LOC: HO.MDS 07:07 | PROVIDERS: PCP Internal Medicine; Visit Provider Internal Medicine Pulmonary Disease | DX: J45.50 Severe persistent asthma, uncomplicated (principal) | CPT/HCPCS: 96372; J2357 ==

== ENCOUNTER 2020-11-16 07:10 | Outpatient (REF) | payer OTHER, SELFPAY | END 2020-11-16 07:11 | disposition home or self-care (01) | LOC: HO.MDS 07:10 | PROVIDERS: PCP Internal Medicine; Visit Provider Internal Medicine Pulmonary Disease | DX: J45.50 Severe persistent asthma, uncomplicated (principal) | CPT/HCPCS: 96372; J2357 ==

== ENCOUNTER 2020-11-30 07:13 | Outpatient (REF) | payer OTHER, SELFPAY | END 2020-11-30 07:14 | disposition home or self-care (01) | LOC: HO.MDS 07:13 | PROVIDERS: PCP Internal Medicine; Visit Provider Internal Medicine Pulmonary Disease | DX: J45.50 Severe persistent asthma, uncomplicated (principal) | CPT/HCPCS: 96372; J2357 ==

== ENCOUNTER 2020-12-14 07:22 | Outpatient (REF) | payer OTHER, SELFPAY | END 2020-12-14 07:23 | disposition home or self-care (01) | LOC: HO.MDS 07:22 | PROVIDERS: PCP Internal Medicine; Visit Provider Internal Medicine Pulmonary Disease | DX: J45.50 Severe persistent asthma, uncomplicated (principal) | CPT/HCPCS: 96372; J2357 ==

== ENCOUNTER → 2020-12-23 09:07 | Outpatient (BNVA) | payer OTHER, SELFPAY | PROVIDERS: PCP Internal Medicine; Visit Provider Internal Medicine Pulmonary Disease ==

== ENCOUNTER 2020-12-28 07:16 | Outpatient (REF) | payer OTHER, SELFPAY | END 2020-12-28 07:17 | disposition home or self-care (01) | LOC: HO.MDS 07:16 | PROVIDERS: PCP Internal Medicine; Visit Provider Internal Medicine Pulmonary Disease | DX: J45.50 Severe persistent asthma, uncomplicated (principal) | CPT/HCPCS: 96372; J2357 ==

== ENCOUNTER 2020-12-30 06:07 | Outpatient (REF) | payer OTHER, SELFPAY ==
[2020-12-30 06:18] LABS: MANUAL DIFF FLAG NO
[2020-12-30 07:16] LABS: Basophils Absolute Auto 0.1 X10*3/uL (0.0-0.2); Basophils Percent Auto 1.1 % (0-2); Eosinophils Absolute Auto 0.8 X10*3/uL (0.0-0.4); Eosinophils Percent Auto 10.6 % (0-4); Hematocrit 49.3 % (42.0-52.0); Hemoglobin 16.3 g/dl (14.0-18.0); Imm Gran Abs Auto 0.04 X10*3/uL (0.00-0.03); Imm Gran Pct Auto 0.5 % (0.0-0.4); Lymphocytes Absolute Auto 1.7 X10*3/uL (1.2-4.9); Lymphocytes Percent Auto 21.9 % (20-40); Mean Corpuscular HGB Conc 33.1 g/dl (31.0-36.0); Mean Corpuscular Hemoglobin 31.8 pg (27.0-33.0); Mean Corpuscular Volume 96.3 fL (80.0-98.0); Mean Platelet Volume 9.7 fL (9.4-12.4); Monocytes Absolute Auto 0.8 X10*3/uL (0.1-1.2); Monocytes Percent Auto 9.8 % (2-11); Neutrophils Absolute Auto 4.5 x10*3/uL (2.0-8.3); Neutrophils Percent Auto 56.1 % (45-73); Platelet Count 214 X10*3/uL (160-400); Red Blood Count 5.12 X10*6/uL (4.60-5.80); Red Cell Distribution Width 13.5 % (11.0-16.0)
[2020-12-30 07:44] LABS: Alanine Aminotransferase 14 U/L (0-40); Albumin Level 3.8 g/dL (3.5-5.0); Alkaline Phosphatase 100 U/L (39-117); Anion Gap 11 (12-20); Aspartate Amino Transferase 21 U/L (5-37); Bilirubin Total 1.4 mg/dL (0.0-1.0); Blood Urea Nitrogen 15 mg/dL (9-16); Calcium 9.3 mg/dL (8.4-10.2); Carbon Dioxide 29 mmol/L (22-29); Chloride 102 mmol/L (96-108); Cholesterol 179 mg/dL; Estimated Glomerular Filt Rate > 60; Glucose Fasting 98 mg/dL (60-99); HDL Cholesterol 55 mg/dL; LDL Cholesterol Calculated 106 mg/dl; Potassium 4.9 mmol/L (3.3-5.1); Sodium 137 mmol/L (135-145); Total Protein 8.2 g/dL (6.5-8.0); Triglycerides 91 mg/dL
[2020-12-30 08:08] LABS: Prostate Specific Antigen 0.86 ng/mL (<0.05-4.0); TSH reflex Free T4 8.38 uIU/mL (0.32-4.0)
[2020-12-30 08:41] LABS: Free T4 (Free Thyroxine) 0.87 ng/dL (0.71-1.85)
== END 2020-12-30 06:08 | disposition home or self-care (01) ==
LOC: HO.LAB 06:07
PROVIDERS: PCP Internal Medicine; Visit Provider Internal Medicine
DX: Z00.00 Encounter for general adult medical examination without abnormal findings (principal); Z12.5 Encounter for screening for malignant neoplasm of prostate; E78.00 Pure hypercholesterolemia, unspecified; I10 Essential (primary) hypertension
CPT/HCPCS: 36415; 80053; 80061; 84153; 84439; 84443; 85025

== ENCOUNTER 2021-01-11 07:03 | Outpatient (REF) | payer OTHER, SELFPAY | END 2021-01-11 07:04 | disposition home or self-care (01) | LOC: HO.MDS 07:03 | PROVIDERS: Visit Provider Internal Medicine Pulmonary Disease | DX: J45.50 Severe persistent asthma, uncomplicated (principal) | CPT/HCPCS: 96372; J2357 ==

== ENCOUNTER 2021-01-25 07:10 | Outpatient (REF) | payer OTHER, SELFPAY | END 2021-01-25 07:11 | disposition home or self-care (01) | LOC: HO.MDS 07:10 | PROVIDERS: Visit Provider Internal Medicine Pulmonary Disease | DX: J45.50 Severe persistent asthma, uncomplicated (principal) | CPT/HCPCS: 96372; J2357 ==

== ENCOUNTER 2021-02-08 07:34 | Outpatient (REF) | payer OTHER, SELFPAY | END 2021-02-08 07:35 | disposition home or self-care (01) | LOC: HO.MDS 07:34 | PROVIDERS: PCP Internal Medicine; Visit Provider Internal Medicine Pulmonary Disease | DX: J45.50 Severe persistent asthma, uncomplicated (principal) | CPT/HCPCS: 96372; J2357 ==

== ENCOUNTER 2021-02-22 07:09 | Outpatient (REF) | payer OTHER, SELFPAY | END 2021-02-22 07:10 | disposition home or self-care (01) | LOC: HO.MDS 07:09 | PROVIDERS: PCP Internal Medicine; Visit Provider Internal Medicine Pulmonary Disease | DX: J45.50 Severe persistent asthma, uncomplicated (principal) | CPT/HCPCS: 96372; J2357 ==

== ENCOUNTER 2021-03-08 07:10 | Outpatient (REF) | payer OTHER, SELFPAY | END 2021-03-08 07:11 | disposition home or self-care (01) | LOC: HO.MDS 07:10 | PROVIDERS: PCP Internal Medicine; Visit Provider Internal Medicine Pulmonary Disease | DX: J45.50 Severe persistent asthma, uncomplicated (principal) | CPT/HCPCS: 96372; J2357 ==

== ENCOUNTER 2021-03-22 07:12 | Outpatient (REF) | payer OTHER, SELFPAY | END 2021-03-22 07:13 | disposition home or self-care (01) | LOC: HO.MDS 07:12 | PROVIDERS: PCP Internal Medicine; Visit Provider Internal Medicine Pulmonary Disease | DX: J45.50 Severe persistent asthma, uncomplicated (principal) | CPT/HCPCS: 96372; J2357 ==

== ENCOUNTER 2021-04-05 07:20 | Outpatient (REF) | payer OTHER, SELFPAY | END 2021-04-05 07:21 | disposition home or self-care (01) | LOC: HO.MDS 07:20 | PROVIDERS: PCP Internal Medicine; Visit Provider Internal Medicine Pulmonary Disease | DX: J45.50 Severe persistent asthma, uncomplicated (principal) | CPT/HCPCS: 96372; J2357 ==

== ENCOUNTER 2021-04-19 07:22 | Outpatient (REF) | payer OTHER, SELFPAY | END 2021-04-19 07:23 | disposition home or self-care (01) | LOC: HO.MDS 07:22 | PROVIDERS: Visit Provider Internal Medicine Pulmonary Disease | DX: J45.50 Severe persistent asthma, uncomplicated (principal) | CPT/HCPCS: 96372; J2357 ==

== ENCOUNTER 2021-05-03 07:11 | Outpatient (REF) | payer OTHER, SELFPAY | END 2021-05-03 07:12 | disposition home or self-care (01) | LOC: HO.MDS 07:11 | PROVIDERS: Visit Provider Internal Medicine Pulmonary Disease | DX: J45.50 Severe persistent asthma, uncomplicated (principal) | CPT/HCPCS: 96372; J2357 ==

== ENCOUNTER 2021-05-17 07:12 | Outpatient (REF) | payer OTHER, SELFPAY | END 2021-05-17 07:13 | disposition home or self-care (01) | LOC: HO.MDS 07:12 | PROVIDERS: Visit Provider Internal Medicine Pulmonary Disease | DX: J45.50 Severe persistent asthma, uncomplicated (principal) | CPT/HCPCS: 96372; J2357 ==

== ENCOUNTER 2021-05-31 07:18 | Outpatient (REF) | payer OTHER, SELFPAY | END 2021-05-31 07:19 | disposition home or self-care (01) | LOC: HO.MDS 07:18 | PROVIDERS: Visit Provider Internal Medicine Pulmonary Disease | DX: J45.50 Severe persistent asthma, uncomplicated (principal) | CPT/HCPCS: 96372; J2357 ==

== ENCOUNTER 2021-06-15 05:58 | Outpatient (REF) | payer OTHER, SELFPAY ==
[2021-06-15 07:47] LABS: Alanine Aminotransferase 12 U/L (0-40); Albumin Level 3.5 g/dL (3.5-5.0); Alkaline Phosphatase 105 U/L (39-117); Anion Gap 14 (12-20); Aspartate Amino Transferase 22 U/L (5-37); Bilirubin Total 1.6 mg/dL (0.0-1.0); Blood Urea Nitrogen 12 mg/dL (9-16); Calcium 9.5 mg/dL (8.4-10.2); Carbon Dioxide 26 mmol/L (22-29); Chloride 101 mmol/L (96-108); Cholesterol 174 mg/dL; Estimated Glomerular Filt Rate > 60; Glucose Fasting 102 mg/dL (60-99); HDL Cholesterol 45 mg/dL; LDL Cholesterol Calculated 109 mg/dl; Potassium 4.5 mmol/L (3.3-5.1); Sodium 136 mmol/L (135-145); Total Protein 8.8 g/dL (6.5-8.0); Triglycerides 102 mg/dL
[2021-06-15 07:49] LABS: Appearance Urine CLEAR; Color Urine YELLOW; Glucose Urine UA NEG (NEG); Leukocyte Esterase Urine NEG (NEG); Nitrite Urine NEG (NEG); UACC Culture Trigger NO; Urine Blood TRACE (NEG); Urine Ketones NEG (NEG); Urine Protein NEG (NEG-TRACE)
[2021-06-15 08:11] LABS: Free T4 (Free Thyroxine) 0.88 ng/dL (0.71-1.85); Thyroid Stimulating Hormone 8.21 uIU/mL (0.32-4.0)
[2021-06-15 08:38] LABS: Mucus Urine 1+ /LPF
[2021-06-15 08:43] LABS: Hyaline Casts Urine 0-2 /LPF; Squamous Epithelial Cell Urine 1+ /LPF
[2021-06-15 08:44] LABS: RBC Urine 0 /HPF (0); WBC Urine 0 /HPF (0-4)
== END 2021-06-15 05:59 | disposition home or self-care (01) ==
LOC: HO.LAB 05:58
PROVIDERS: PCP Internal Medicine; Visit Provider Internal Medicine
DX: E03.9 Hypothyroidism, unspecified (principal); E78.00 Pure hypercholesterolemia, unspecified
CPT/HCPCS: 36415; 80053; 80061; 81001; 84439; 84443

== ENCOUNTER → 2021-07-07 13:05 | Outpatient (BNVA) | payer OTHER, SELFPAY | PROVIDERS: PCP Internal Medicine; Visit Provider Internal Medicine Pulmonary Disease | DX: J45.50 Severe persistent asthma, uncomplicated (principal) ==

== ENCOUNTER 2022-01-18 06:06 | Outpatient (REF) | payer OTHER, SELFPAY ==
[2022-01-18 06:15] LABS: MANUAL DIFF FLAG NO
[2022-01-18 07:33] LABS: Basophils Absolute Auto 0.1 X10*3/uL (0.0-0.2); Basophils Percent Auto 1.4 % (0-2); Eosinophils Absolute Auto 1.5 X10*3/uL (0.0-0.4); Eosinophils Percent Auto 17.1 % (0-4); Hematocrit 47.9 % (42.0-52.0); Hemoglobin 15.6 g/dl (14.0-18.0); Imm Gran Abs Auto 0.04 X10*3/uL (0.00-0.03); Imm Gran Pct Auto 0.5 % (0.0-0.4); Lymphocytes Absolute Auto 2.1 X10*3/uL (1.2-4.9); Lymphocytes Percent Auto 24.2 % (20-40); Mean Corpuscular HGB Conc 32.6 g/dl (31.0-36.0); Mean Corpuscular Hemoglobin 30.6 pg (27.0-33.0); Mean Corpuscular Volume 93.9 fL (80.0-98.0); Mean Platelet Volume 9.8 fL (9.4-12.4); Monocytes Absolute Auto 0.8 X10*3/uL (0.1-1.2); Monocytes Percent Auto 9.5 % (2-11); Neutrophils Absolute Auto 4.1 x10*3/uL (2.0-8.3); Neutrophils Percent Auto 47.3 % (45-73); Platelet Count 193 X10*3/uL (160-400); Red Cell Distribution Width 13.8 % (11.0-16.0); White Blood Count 8.6 X10*3/uL (4.8-10.8)
[2022-01-18 08:22] LABS: Free T4 (Free Thyroxine) 0.88 ng/dL (0.71-1.85); Thyroid Stimulating Hormone 6.89 uIU/mL (0.32-4.0)
[2022-01-20 04:59] LABS: Thyroid Peroxidase Antibodies 3 IU/mL (<9)
[2022-01-23 10:09] LABS: Triiodothyronine T3 Reverse 19 ng/dL (8-25)
[2022-01-24 19:34] LABS: Thyroxine Binding Globulin 20.1 mcg/mL (12.7-25.1)
== END 2022-01-18 06:07 | disposition home or self-care (01) ==
LOC: HO.LAB 06:06
PROVIDERS: PCP Internal Medicine; Visit Provider Internal Medicine
DX: R79.89 Other specified abnormal findings of blood chemistry (principal); E03.9 Hypothyroidism, unspecified; I10 Essential (primary) hypertension
CPT/HCPCS: 36415; 84439; 84442; 84443; 84482; 85025; 86376

== ENCOUNTER 2022-07-23 06:56 | Outpatient (REF) | payer OTHER, SELFPAY ==
[2022-07-23 07:12] LABS: MANUAL DIFF FLAG NO
[2022-07-23 07:30] LABS: Basophils Absolute Auto 0.1 X10*3/uL (0.0-0.2); Basophils Percent Auto 1.3 % (0-2); Eosinophils Absolute Auto 1.2 X10*3/uL (0.0-0.4); Hematocrit 49.7 % (42.0-52.0); Imm Gran Abs Auto 0.04 X10*3/uL (0.00-0.03); Imm Gran Pct Auto 0.5 % (0.0-0.4); Lymphocytes Absolute Auto 1.9 X10*3/uL (1.2-4.9); Lymphocytes Percent Auto 23.5 % (20-40); Mean Corpuscular HGB Conc 32.2 g/dl (31.0-36.0); Mean Corpuscular Hemoglobin 30.7 pg (27.0-33.0); Mean Corpuscular Volume 95.2 fL (80.0-98.0); Mean Platelet Volume 10.1 fL (9.4-12.4); Monocytes Absolute Auto 0.7 X10*3/uL (0.1-1.2); Monocytes Percent Auto 8.5 % (2-11); Neutrophils Absolute Auto 4.3 x10*3/uL (2.0-8.3); Neutrophils Percent Auto 52.2 % (45-73); Platelet Count 191 X10*3/uL (160-400); Red Blood Count 5.22 X10*6/uL (4.60-5.80); Red Cell Distribution Width 14.5 % (11.0-16.0); White Blood Count 8.3 X10*3/uL (4.8-10.8)
[2022-07-23 08:55] LABS: Alanine Aminotransferase 16 U/L (0-40); Albumin Level 3.6 g/dL (3.5-5.0); Alkaline Phosphatase 108 U/L (39-117); Anion Gap 15 (12-20); Aspartate Amino Transferase 25 U/L (5-37); Bilirubin Total 1.9 mg/dL (0.0-1.0); Blood Urea Nitrogen 10 mg/dL (9-16); Calcium 9.1 mg/dL (8.4-10.2); Carbon Dioxide 24 mmol/L (22-29); Chloride 106 mmol/L (96-108); Cholesterol 168 mg/dL; Estimated Glomerular Filt Rate > 60; Glucose Fasting 106 mg/dL (60-99); HDL Cholesterol 46 mg/dL; LDL Cholesterol Calculated 99 mg/dl; Potassium 4.5 mmol/L (3.3-5.1); Sodium 140 mmol/L (135-145); Total Protein 8.3 g/dL (6.5-8.0); Triglycerides 118 mg/dL
[2022-07-23 09:16] LABS: Free T4 (Free Thyroxine) 0.88 ng/dL (0.71-1.85); Thyroid Stimulating Hormone 7.47 uIU/mL (0.32-4.0); Vitamin D 25-OH Total 18.4 ng/mL (>30)
[2022-07-23 17:09] LABS: Appearance Urine Clear; Color Urine Dark Yellow; Glucose Urine UA Negative (Negative); Leukocyte Esterase Urine Trace (Negative); Nitrite Urine Negative (Negative); PH 5.5 (5.0-9.0); Specific Gravity - Urine >= 1.030 (1.005-1.025); UMIC TRIGGER UACC YES; Urine Blood Negative (Negative); Urine Ketones Trace mg/dL (Negative); Urine Protein Trace mg/dL (Neg-Trace)
[2022-07-23 17:12] LABS: Bacteria Urine None Seen (None Seen); Hyaline Casts Urine 0-2 /LPF (0-2); RBC Urine 0-2 /HPF (0-2); Squamous Epithelial Cell Urine 0-2 /HPF (0-2); WBC Urine 0-5 /HPF (0-5)
== END 2022-07-23 06:57 | disposition home or self-care (01) ==
LOC: HO.LAB 06:56
PROVIDERS: PCP Internal Medicine; Visit Provider Internal Medicine
DX: I10 Essential (primary) hypertension (principal); E78.00 Pure hypercholesterolemia, unspecified; E55.9 Vitamin D deficiency, unspecified; E03.9 Hypothyroidism, unspecified; R30.0 Dysuria
CPT/HCPCS: 36415; 80053; 80061; 81001; 82306; 84439; 84443; 85025

== ENCOUNTER 2023-01-24 05:58 | Outpatient (REF) | payer OTHER, SELFPAY ==
[2023-01-24 06:10] LABS: MANUAL DIFF FLAG NO
[2023-01-24 07:31] LABS: Appearance Urine Clear; Color Urine Dark Yellow; Glucose Urine UA Negative (Negative); Leukocyte Esterase Urine Negative (Negative); Nitrite Urine Negative (Negative); PH 5.5 (5.0-9.0); Specific Gravity - Urine 1.025 (1.005-1.025); UMIC TRIGGER UACC YES; Urine Blood Small (1+) (Negative); Urine Ketones Negative (Negative); Urine Protein 30 (1+) mg/dL (Neg-Trace)
[2023-01-24 07:37] LABS: Estimated Average Glucose 120 mg/dL; Hemoglobin A1c % 5.8 % (<6.0)
[2023-01-24 07:39] LABS: Bacteria Urine None Seen (None Seen); Squamous Epithelial Cell Urine 0-2 /HPF (0-2); WBC Urine 0-5 /HPF (0-5)
[2023-01-24 07:45] LABS: Basophils Absolute Auto 0.1 X10*3/uL (0.0-0.2); Basophils Percent Auto 0.7 % (0-2); Eosinophils Absolute Auto 0.4 X10*3/uL (0.0-0.4); Eosinophils Percent Auto 3.3 % (0-4); Hemoglobin 13.8 g/dl (14.0-18.0); Imm Gran Pct Auto 0.8 % (0.0-0.4); Lymphocytes Absolute Auto 1.9 X10*3/uL (1.2-4.9); Lymphocytes Percent Auto 15.4 % (20-40); Mean Corpuscular HGB Conc 32.1 g/dl (31.0-36.0); Mean Corpuscular Hemoglobin 30.5 pg (27.0-33.0); Mean Corpuscular Volume 94.9 fL (80.0-98.0); Mean Platelet Volume 9.9 fL (9.4-12.4); Monocytes Absolute Auto 1.2 X10*3/uL (0.1-1.2); Monocytes Percent Auto 9.3 % (2-11); Neutrophils Absolute Auto 8.9 x10*3/uL (2.0-8.3); Neutrophils Percent Auto 70.5 % (45-73); Platelet Count 364 X10*3/uL (160-400); Red Blood Count 4.53 X10*6/uL (4.60-5.80); White Blood Count 12.6 X10*3/uL (4.8-10.8)
[2023-01-24 08:04] LABS: Alanine Aminotransferase 19 U/L (0-40); Albumin Level 3.1 g/dL (3.5-5.0); Alkaline Phosphatase 166 U/L (39-117); Anion Gap 14 (12-20); Aspartate Amino Transferase 32 U/L (5-37); Bilirubin Total 1.1 mg/dL (0.0-1.0); Blood Urea Nitrogen 10 mg/dL (9-16); Calcium 9.4 mg/dL (8.4-10.2); Carbon Dioxide 24 mmol/L (22-29); Chloride 102 mmol/L (96-108); Cholesterol 114 mg/dL (<200); Estimated Glomerular Filt Rate > 60; Glucose Fasting 125 mg/dL (60-99); HDL Cholesterol 25 mg/dL (>40); LDL Cholesterol Calculated 72 mg/dL (<100); Potassium 4.3 mmol/L (3.3-5.1); Sodium 136 mmol/L (135-145); Total Protein 9.5 g/dL (6.5-8.0); Triglycerides 89 mg/dL (<150)
[2023-01-24 08:23] LABS: Free T4 (Free Thyroxine) 1.09 ng/dL (0.71-1.85); Thyroid Stimulating Hormone 2.36 uIU/mL (0.32-4.0); Vitamin D 25-OH Total 28.3 ng/mL (>30)
== END 2023-01-24 05:59 | disposition home or self-care (01) ==
LOC: HO.LAB 05:58
PROVIDERS: PCP Internal Medicine; Visit Provider Internal Medicine
DX: R73.01 Impaired fasting glucose (principal); E78.00 Pure hypercholesterolemia, unspecified; E03.9 Hypothyroidism, unspecified; I10 Essential (primary) hypertension; E55.9 Vitamin D deficiency, unspecified
CPT/HCPCS: 36415; 80053; 80061; 81001; 82306; 83036; 84439; 84443; 85025

== ENCOUNTER 2023-01-26 15:01 | Emergency (ER) | payer OTHER, SELFPAY ==
[2023-01-26 15:12] VITALS: BP 143/71; PULSE 81; RESP 20; TEMP 35.8; O2SAT 97; BMI 67.9
--- NOTE | 2023-01-26 15:15 | ED_ITS ---
HPI - Extremity Injury (Lower) General Chief Complaint: Extremity Injury, Lower Stated Complaint: left leg hematoma Time Seen by Provider: 01/26/23 16:10 Source: patient Mode of arrival: ambulatory Limitations: no limitations History of Present Illness HPI Narrative: Patient obese with lymphedema history of asthma not on any blood thinner or steroids apparently hit his left leg to the electrode turner and finisher edge 5 days ago no skin breakdown 2 days ago while taking shower patient noticed small hematoma at the site which started draining serosanguineous fluid. 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[employer]) Previous Rx's Medication Instructions Recorded albuterol sulfate 90 mcg/actuation 2 puff inhalation Q4-6H PRN 07/07/21 aerosol inhaler shortness of breath or wheezing 30 days #1 ea cholecalciferol (vitamin D3) 50 50 mcg PO DAILY 90 days #90 caps 07/26/22 mcg (2,000 unit) capsule oxycodone 5 mg tablet 5 mg PO BID PRN pain 10 days #20 07/26/22 tabs amlodipine 5 mg tablet 5 mg PO DAILY #90 tabs 07/31/22 fluticasone propionate 50 1 spray intranasal BID 30 days #1 10/01/22 mcg/actuation nasal ea spray,suspension (Flonase Allergy Relief) prednisone 20 mg tablet 40 mg (2 x 20 mg) PO DAILY #5 tabs 11/12/22 Trelegy Ellipta 200 mcg-62.5 1 ea PO DAILY #60 ea 12/28/22 mcg-25 mcg powder for inhalation ([id number]) montelukast 10 mg tablet 10 mg PO BEDTIME #30 tabs 01/07/23 furosemide 20 mg tablet 20 mg PO QAM PRN edema 30 days #30 01/09/23 tabs levothyroxine 75 mcg tablet 75 mcg PO DAILY 90 days #90 tabs 01/09/23 diclofenac sodium 75 mg 75 mg PO BID PRN pain 30 days #60 01/14/23 tablet,delayed release tabs cephalexin 500 mg capsule 500 mg PO QID 10 days #40 caps 01/26/23 doxycycline hyclate 100 mg tablet 100 mg PO BID #20 tabs 01/26/23 Allergies Allergy/AdvReac Type Severity Reaction Status Date / Time No Known Allergies Allergy Verified 07/26/22 09:09 Review of Systems 2 Review of Systems: Yes all other systems are reviewed and are negative [facility] Past Medical History Medical History Vitamin D deficiency Subclinical hypothyroidism Multiple environmental allergies Benign essential hypertension Morbid obesity with BMI of 60.0-69.9, adult 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 Kidney calculi Asthma Surgical History Hx of colonoscopy (~02/04/12) Family History Family History Mother Congestive heart failure Father Lung cancer Social History Social History Household Members: Spouse Housing: House Do you presently have visiting nurse or other home services: No Alcohol intake: current Alcohol intake frequency: does not drink Patient Tobacco Use Status: Never used Tobacco Smoked in Last 30 Days: No e-Cigarette/Vaping Use: Never Used Second Hand Smoke Exposure: Yes Use of substances other than those prescribed or required for medical reasons: No Advance Directives: No Advance Directives Information Provided: No service: No Current occupational status: employed Current occupation: [employer] Cognitive needs: No Hearing needs: No Vision needs: No Physical Exam 2 Vital Signs: Vital Signs: Last Vital Signs Temp 98.2 F 01/26/23 20:15 Pulse 80 01/26/23 20:15 Resp 16 01/26/23 20:15 BP 134/64 01/26/23 20:15 Pulse Ox 97 01/26/23 20:15 O2 Del Method Room Air 01/26/23 20:15 BMI result Body Mass Index 67.9 Appearance: Alert. Oriented X3. No acute distress. obese Eyes: No pallor or icterus ENT: Pharynx normal. Oral Mucosa moist Neck: Normal inspection. Neck supple. CVS: Normal heart rate and rhythm. Pulses normal. Respiratory: No respiratory distress. Equal air entry bilateral, no wheezing/rales/rhonchi Abdomen: Soft and nontender. Bowel sounds are present, no mass palpable, no CVA tenderness Skin: Skin warm and dry. Normal skin color. Normal skin turgor. Extremities: Lymphedema bilateral, small open wound left lower extremity with surrounding erythema and warmth serosanguineous fluid++ No calf tenderness Neuro: Oriented X 3. No motor deficit. No sensory deficit.No cerebellar signs , cranial nerves II-XII intact Course Course Course Narrative: This is a rapid medical exam. Deferred additional HPI, ROS, PE to primary provider. 62 yo male with history of hypothroidism, obesity, HTN here with left leg pain, drainage. Hit leg on a electrode turner and finisher and had abrasion, wound opened two days later. Denies fevers, chills. Patient has a circumferential cellulitis of the LLE Will obtain labs VSS Medications Administered Discontinued Medications Generic Name Dose Route Start Last Admin Trade Name Freq PRN Reason Stop Dose Admin Vancomycin HCl 2,000 mg in 500 mls @ 250 mls/hr 01/26/23 16:35 01/26/23 19:40 Vancomycin/Ns IV 01/26/23 18:34 Infused ONCE ONE Infusion Medical Decision Making Medical Decision Making [facility] Narrative: Patient lymphedema with minor injury with cellulitis and small hematoma. Labs are stable no signs of systemic infection. Patient was given IV vancomycin and agreed to have outpatient treatment with doxycycline cephalexin Differential Diagnosis Differential Diagnoses: The differential diagnosis associated with the presentation includes Cellulitis/abscess Lab Data [facility] Lab Attestation statement: I reviewed the patient's lab results. 01/26/23 15:31 01/26/23 15:31 Labs: Lab Results 01/26/23 Range/Units 15:31 WBC 8.2 (4.8-10.8) X10*3/uL RBC 4.72 (4.60-5.80) X10*6/uL Hgb 14.0 (14.0-18.0) g/dl Hct 43.8 (42.0-52.0) % MCV 92.8 (80.0-98.0) fL MCH 29.7 (27.0-33.0) pg MCHC 32.0 (31.0-36.0) g/dl RDW 14.6 (11.0-16.0) % Plt Count 377 (160-400) X10*3/uL MPV 9.3 L (9.4-12.4) fL Immature Gran % (Auto) 0.6 H (0.0-0.4) % Neut % (Auto) 65.1 (45-73) % Lymph % (Auto) 18.4 L (20-40) % Harmon % (Auto) 8.9 (2-11) % Eos % (Auto) 6.1 H (0-4) % Baso % (Auto) 0.9 (0-2) % Lymph # (Auto) 1.5 (1.2-4.9) X10*3/uL Harmon # (Auto) 0.7 (0.1-1.2) X10*3/uL Eos # (Auto) 0.5 H (0.0-0.4) X10*3/uL Baso # (Auto) 0.1 (0.0-0.2) X10*3/uL Abs Immat Gran (auto) 0.05 H (0.00-0.03) X10*3/uL Absolute Neuts (auto) 5.3 (2.0-8.3) x10*3/uL Absolute Nucleated RBC 0.000 (0.0-0.012) X10*3/uL Nucleated RBC % (auto) 0.0 (0.0-0.2) /100WBC ESR 74 H (0-15) MM/HR Sodium 136 (135-145) mmol/L Potassium 4.0 (3.3-5.1) mmol/L Chloride 101 (96-108) mmol/L Carbon Dioxide 26 (22-29) mmol/L Anion Gap 13 (12-20) BUN 9 (9-16) mg/dL Creatinine 0.90 (0.5-1.4) mg/dL Estim Creat Clear Calc 165.4 Estimated GFR > 60 Random Glucose 120 H (60-115) mg/dL Lactic Acid 1.5 (0.5-2.0) mmol/L Calcium 9.4 (8.4-10.2) mg/dL Total Bilirubin 0.8 (0.0-1.0) mg/dL Direct Bilirubin 0.4 (0.0-0.5) mg/dL AST 24 (5-37) U/L ALT 14 (0-40) U/L Alkaline Phosphatase 147 H (39-117) U/L C-Reactive Protein 8.98 H (< or = 0.50) mg/dL Total Protein 9.6 H (6.5-8.0) g/dL Albumin 3.1 L (3.5-5.0) g/dL Discharge Plan Discharge Clinical Impression: Cellulitis Patient Disposition: Home, Self-Care Instructions: Cellulitis (ED) Additional Instructions: Keep your left leg elevated Local care of the wound as advised Antibiotic as prescribed Report to the ER if worsening redness/fever/swelling Prescriptions: New cephalexin 500 mg capsule 500 mg PO QID 10 Days Qty: 40 0RF doxycycline hyclate 100 mg tablet 100 mg PO BID Qty: 20 0RF No Action amlodipine 5 mg tablet 5 mg PO DAILY Qty: 90 1RF fluticasone propionate [Flonase Allergy Relief] 50 mcg/actuation spray,suspension 1 spray intranasal BID 30 Days Qty: 1 6RF Rx Instructions: administer into each nostril prednisone 20 mg tablet 40 mg PO DAILY Qty: 5 0RF Trelegy Ellipta 200-62.5-25 mcg blister with device 1 ea PO DAILY Qty: 60 0RF montelukast 10 mg tablet 10 mg PO BEDTIME Qty: 30 0RF levothyroxine 75 mcg tablet 75 mcg PO DAILY 90 Days Qty: 90 1RF Rx Instructions: Take on an empty stomach, first thing in the morning, with water. Do not eat or drink anything else for 30 minutes afterwards furosemide 20 mg tablet 20 mg PO QAM PRN (Reason: edema) 30 Days Qty: 30 3RF diclofenac sodium 75 mg tablet,delayed release (DR/EC) 75 mg PO BID PRN (Reason: pain) 30 Days Qty: 60 1RF Rx Instructions: Take with food albuterol sulfate 2.5 mg /3 mL (0.083 %) solution for nebulization 2.5 mg continuous nebulization Q6H PRN (Reason: shortness of breath or wheezing) oxycodone 5 mg tablet 5 mg PO BID PRN (Reason: pain) 10 Days Qty: 20 0RF Rx Instructions: Take as needed only for severe pain cholecalciferol (vitamin D3) 50 mcg (2,000 unit) capsule 50 mcg PO DAILY 90 Days Qty: 90 3RF Dupixent Pen 300 mg/2 mL pen injector subcut Q2W albuterol sulfate 90 mcg/actuation HFA aerosol inhaler 2 puff inhalation Q4-6H PRN (Reason: shortness of breath or wheezing) 30 Days Qty: 1 6RF Interventions: ED Discharge Assessment Last Done: 01/26/23 20:58 Discharge Date/Time: 01/26/23 21:00
[2023-01-26 15:38] LABS: MANUAL DIFF FLAG NO
[2023-01-26 15:40] LABS: Basophils Absolute Auto 0.1 X10*3/uL (0.0-0.2); Basophils Percent Auto 0.9 % (0-2); Eosinophils Absolute Auto 0.5 X10*3/uL (0.0-0.4); Eosinophils Percent Auto 6.1 % (0-4); Hematocrit 43.8 % (42.0-52.0); Imm Gran Abs Auto 0.05 X10*3/uL (0.00-0.03); Imm Gran Pct Auto 0.6 % (0.0-0.4); Lymphocytes Absolute Auto 1.5 X10*3/uL (1.2-4.9); Lymphocytes Percent Auto 18.4 % (20-40); Mean Corpuscular Hemoglobin 29.7 pg (27.0-33.0); Mean Corpuscular Volume 92.8 fL (80.0-98.0); Mean Platelet Volume 9.3 fL (9.4-12.4); Monocytes Absolute Auto 0.7 X10*3/uL (0.1-1.2); Monocytes Percent Auto 8.9 % (2-11); Neutrophils Absolute Auto 5.3 x10*3/uL (2.0-8.3); Neutrophils Percent Auto 65.1 % (45-73); Platelet Count 377 X10*3/uL (160-400); Red Blood Count 4.72 X10*6/uL (4.60-5.80); Red Cell Distribution Width 14.6 % (11.0-16.0); White Blood Count 8.2 X10*3/uL (4.8-10.8)
[2023-01-26 15:53] LABS: Lactic Acid 1.5 mmol/L (0.5-2.0)
[2023-01-26 15:57] LABS: Alanine Aminotransferase 14 U/L (0-40); Albumin Level 3.1 g/dL (3.5-5.0); Alkaline Phosphatase 147 U/L (39-117); Anion Gap 13 (12-20); Aspartate Amino Transferase 24 U/L (5-37); Bilirubin Direct 0.4 mg/dL (0.0-0.5); Bilirubin Total 0.8 mg/dL (0.0-1.0); Blood Urea Nitrogen 9 mg/dL (9-16); C Reactive Protein 8.98 mg/dL (< or = 0.50); Calcium 9.4 mg/dL (8.4-10.2); Carbon Dioxide 26 mmol/L (22-29); Chloride 101 mmol/L (96-108); Creatinine Clr Calc Pharmacy 165.4; Estimated Glomerular Filt Rate > 60; Glucose Random 120 mg/dL (60-115); Sodium 136 mmol/L (135-145); Total Protein 9.6 g/dL (6.5-8.0)
[2023-01-26 16:27] LABS: Erythrocyte Sedimentation Rate 74 MM/HR (0-15)
[2023-01-26 17:12] VITALS: BP 132/57; PULSE 80; RESP 16; TEMP 37.1; O2SAT 96
--- NOTE | 2023-01-26 17:24 | MHC.EDTECH ---
PATIENT VITALS TAKEN AND 2ND SETS OF BLOOD CULTURE DRAWN AND SENT TO LAB .
[2023-01-26] MEDS: vancomycin/NS 2,000 MG/500 ML PLAST..BAG 250 MG IV (17:28)
[2023-01-26 17:39] VITALS: BP 135/73; PULSE 72; RESP 16; TEMP 36.8; O2SAT 97
--- NOTE | 2023-01-26 18:43 | PC.NURSE ---
dressing change done to left lower leg with guaze, roll and new large perla wrap.
[2023-01-26 20:15] VITALS: BP 134/64; PULSE 80; RESP 16; TEMP 36.8; O2SAT 97
== END 2023-01-26 21:00 | disposition home or self-care (01) ==
PROVIDERS: Nurse Practitioner Family; Emergency Provider Internal Medicine; PCP Internal Medicine
DX: L03.116 Cellulitis of left lower limb (principal); S80.12XA Contusion of left lower leg, initial encounter; X58.XXXA Exposure to other specified factors, initial encounter; Y93.89 Activity, other specified; Y92.9 Unspecified place or not applicable; Y99.9 Unspecified external cause status; I89.0 Lymphedema, not elsewhere classified; I10 Essential (primary) hypertension
CPT/HCPCS: 36415; 80048; 80076; 83605; 85025; 85652; 86140; 87040; 87070; 87077; 87186; 87205; 96365; 96366; 99284; J3370

== ENCOUNTER 2023-01-28 08:56 | Outpatient (AMB) | payer OTHER, SELFPAY ==
--- NOTE | 2023-01-28 09:00 | MHC.PC.OV ---
Vital Signs 01/28/23 09:01 Height 6 ft BP 142/90 H Blood Pressure Location Lt brachial Position Sitting Pulse 91 Pulse Source Pulse Oximeter Pulse Oximetry (%) 96 Oxygen Delivery Method Room Air Intake Visit Reasons: HTN, lymphedema, hypothyroidism, asthma Investment Accountant Required: No Accompanied by: Self / Same As Patient Allergies No Known Allergies Allergy (Verified 01/28/23 09:26) Medication List - Last Reconciled 01/28/23 by Harshad Horn MD albuterol sulfate 2.5 mg continuous nebulization Q6H PRN albuterol sulfate 90 mcg/actuation 2 puffs inhalation Q4-6H PRN 30 days amlodipine 5 mg PO DAILY cephalexin 500 mg PO QID 10 days cholecalciferol (vitamin D3) 50 mcg PO DAILY 90 days diclofenac sodium 75 mg PO BID PRN 30 days doxycycline hyclate 100 mg PO BID dupilumab (Dupixent) mg subcut Q2W fluticasone propionate 50 mcg/actuation (Flonase Allergy Relief) 1 spray intranasal BID 30 days furosemide 20 mg PO QAM PRN 30 days levothyroxine 75 mcg PO DAILY 90 days montelukast 10 mg PO BEDTIME oxycodone 5 mg PO BID PRN 10 days prednisone 40 mg (2 x 20 mg) PO DAILY Trelegy Ellipta 200-62.5-25 mcg ([id number]) 1 ea PO DAILY NS Tobacco use date assessed: 01/28/23 Dental Screening Dental Screen Date: 01/28/23 Did you have a dental visit in the last 12 months?: Yes Did you have a dental problem in the last 6 months where you did not have access to dental care?: No Was dental information given to patient?: Patient has dentist HPI HTN, lymphedema, hypothyroidism, asthma HPI Details Patient comes in today for his follow up visit He went to the ER a couple of days ago for increasing redness of his left leg and a draining hematoma on his left lower [place] area Relates that he accidentally hit his leg on the edge of his mold washer about 5 days prior and ended up with a small hematoma but he did not think much of it until it started draining a few days later He was diagnosed with cellulitis of the left lower leg and started on oral Cephalexin and Doxycycline, which he is still currently on States that his left leg is feeling better and that the redness and swelling on his leg appears to be subsiding gradually Would like to request for a referral to go see the wound clinic for his leg injury He denies any fever, headaches or dizziness Denies any chest pains, no SOB No nausea/vomiting, no abdominal pain No change in bowel habits noted Would like to get a refill on his Oxycodone Rx Had his follow up labs done a few days ago - to discuss his results Would also like to get his flu shot today [facility] Medical History (Updated 01/28/23 @ 10:07 by Harshad Horn MD) Impaired fasting glucose Lymphedema Acquired hypothyroidism Vitamin D deficiency Multiple environmental allergies Benign essential hypertension Morbid obesity with BMI of 60.0-69.9, adult 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 Kidney calculi Asthma Surgical History Hx of colonoscopy (~02/04/12) Family History Mother Congestive heart failure Father Lung cancer Social History Household Members: Spouse Housing: House Do you presently have visiting nurse or other home services: No Alcohol intake: current Alcohol intake frequency: does not drink Patient Tobacco Use Status: Never used Tobacco e-Cigarette/Vaping Use: Never Used Second Hand Smoke Exposure: Yes service: No Current occupational status: employed Current occupation: [employer] Cognitive needs: No Hearing needs: No Vision needs: No Questionnaire PHQ-9 Over the last 2 weeks, how often have you been bothered by any of the following problems? 1. Little interest or pleasure in doing things: not at all 2. Feeling down, depressed, or hopeless: several days 3. Trouble falling or staying asleep, or sleeping too much: more than half the days 4. Feeling tired or having little energy: not at all 5. Poor appetite or overeating: not at all 6. Feeling bad about yourself - or that you are a failure or have let yourself or your family down: not at all 7. Trouble concentrating on things, such as reading the newspaper or watching television: not at all 8. Moving or speaking so slowly that other people could have noticed. Or the opposite - being so fidgety or restless that you have been moving around a lot more than usual: not at all 9. Thoughts that you would be better off or of hurting yourself in some way: not at all Total score: 3 Depression Screening Interpretation: Negative Depression Screening Done: Yes 95712 - PHQ-9 Billing: Yes Source: Developed by Drs. Chon Wilson, hSawna Tijerina, Juan Judge and colleagues, with an educational abi from [employer]. Thrive Questionnaire Date Thrive assessed: 01/28/23 I am a: Patient What is your living situation today?: I have a steady place to live Within the past 12 months, did the food you bought not last and you didn't have the money to get more?: Never true Within the past 12 months, did you worry whether your food would run out before you got money to buy more?: Never true Do you have trouble paying for medicines?: No Do you have trouble getting transportation to medical appointments?: No Do you have trouble paying your heating and electricity bill?: No Do you have trouble taking care of your child, family member or friend?: No Do you have trouble with day-to-day activities such as bathing, preparing meals, shopping, managing finances, etc.?: No Are you currently unemployed and looking for a job?: No Are you interested in more education?: No Please select the resources that you would like help with: None Currently or been in a relationship where the following occur: no concerns reported AUDIT C Alcohol Use Questionnaire (AUDIT-C) 1. How often do you have a drink containing alcohol?: 2-3 times a week 2. How many drinks containing alcohol do you have on a typical day when you are drinking?: 5 or 6 Total Score: 5 Score Reviewed/Action Taken: Yes MARILEE-7 AMB Questionnaire MARILEE-7 Date MARILEE - 7 assessed: 01/28/23 Feeling nervous, anxious, or on edge: 3 = Nearly every day Not being able to stop or control worryin = Not at all Worrying too much about different things: 0 = Not at all Trouble relaxin = Not at all Being so restless that it is hard to sit still: 0 = Not at all Becoming easily annoyed or irritable: 0 = Not at all Feeling afraid as if something awful might happen: 0 = Not at all Total MARILEE-7 score (0-4 normal; 5-9 mild; 10-14 moderate; 15-21 severe): 3 Source: Developed by Drs. Chon Wilson, Shawna Tijerina, Juan Judge and colleagues, with an educational abi from [employer]. Review of Systems Const Denies chills, Denies fatigue, Denies fever(s) and Denies headache(s) ENT Denies dysphagia, Denies dizziness, Denies otalgia, Denies headache(s), Denies neck pain, Denies odynophagia and Denies sore throat Card Denies chest pain, Denies rapid heart rate, Denies irregular heart rhythm, Denies palpitations and Denies dyspnea Resp Denies chest congestion, Denies cough, Denies dyspnea and Denies wheezing GI Denies abdominal pain, Denies constipation, Denies dysphagia, Denies heartburn, Denies diarrhea, Denies nausea, Denies odynophagia and Denies vomiting Denies difficulty urinating, Denies dysuria and Denies urinary frequency Musc Reports back pain (over the lower back, recurrent), Denies arthralgias and Denies neck pain Skin/Breast Details: (+) redness of the left lower leg - resolving Denies rash Neuro Denies dizziness, Denies headache(s) and Denies paresthesias Psych Reports anxiety (and stress) Endo Denies fatigue and Denies palpitations Fabio/Lymph Details: chronic edema of both lower extremities Aller/Immun Denies wheezing Physical exam (Primary Care) Vital Signs: Last Vital Signs Pulse 91 01/28/23 09:01 BP 142/90 H 01/28/23 09:01 Pulse Ox 96 01/28/23 09:01 Oxygen Delivery Method Room Air 01/28/23 09:01 Tobacco/Smoking Status: Tobacco use Status Tobacco use date assessed 01/28/23 01/28/23 09:06 Patient Tobacco Use Status Never used Tobacco 01/28/23 09:06 e-Cigarette/Vaping Use Never Used 01/28/23 09:06 PHQ-9: PHQ-9 Score PHQ-9: Total score 4 12/11/23 09:29 Depression Screening Interpretation: Negative Thrive Assessment: Date of Thrive Assessment Date Thrive assessed 01/28/23 01/28/23 09:06 Currently or been in a relationship where the following occur: no concerns reported Const General: no acute distress and alert HENMT Ears: TM's normal bilaterally and EAC's normal Throat: Yes posterior oropharynx normal and Yes tonsils normal (no TP congestion) Neck Neck: Yes no lymphadenopathy and Yes supple Thyroid: Thyroid normal Resp Auscultation: clear to auscultation bilaterally, no rales and no wheezes Cardio Rate: regular rate Rhythm: regular rhythm Heart sounds: no murmurs GI Palpation (GI): Soft to palpation and nontender Auscultation: normal bowel sounds General: Yes no CVA tenderness Back/Spine/Pelvis Back: no CVA tenderness Thoracic/Lumbar Spine: lumbar spinal tenderness Skin Rashes: no rashes Extrem Other: (+) bandages over the left lower leg - exam not done, per patient request as he does not want to have to re-wrap his leg here in the office General: Yes edema (3+ bilateral lower extremity edema - chronic) Office Procedures Flu Questionnaire Does the patient have a severe egg allergy?: No Does the patient have severe life threatening allergies?: No Does the patient have a fever or illness today?: No Has the patient ever had Guillain-Hinckley Syndrome?: No Has the patient ever had any past reaction to a flu shot?: No Immunizations flu vacc [id number] 6mos up(PF) 60 mcg(15 mcgx4)/0.5 mL IM syringe Performing Provider: Harshad Horn MD [facility] Administered by: Javan De Los Santos on 01/28/23 09:43 Dose Route Admin Location Dispensed Lot Number Expiration Date NDC Precision Lens Polisher 0.5 mL IM Left Deltoid 0.5 mL [id number] 01/28/23 18091-203-29 Twyxt VIS Given Date VIS Provided VIS Publication Date 01/28/23 Single Vaccine 20 Eligibility Eligibility Date Funding Source Not VFC Eligible 01/28/23 Private Results Reviewed Results Reviewed: Laboratory Tests 06/15/21 07/23/22 01/24/23 06:00 07:10 06:03 WBC Hgb Hct Plt Count ESR Sodium Potassium Creatinine Estimated GFR Fasting Glucose Hemoglobin A1c % Calcium AST ALT Alkaline Phosphatase C-Reactive Protein Total Protein 8.8 H 8.3 H Albumin Triglycerides Cholesterol LDL Cholesterol, Calc HDL Cholesterol 25-OH Vitamin D Total TSH Free T4 Ur Specific [place] 1.025 Urine Protein 30 (1+) H Urine Glucose (UA) Negative Urine Blood Small (1+) H 01/24/23 01/24/23 01/24/23 06:06 06:06 06:06 WBC Hgb Hct Plt Count ESR Sodium Potassium Creatinine Estimated GFR Fasting Glucose 125 H Hemoglobin A1c % 5.8 Calcium AST ALT Alkaline Phosphatase C-Reactive Protein Total Protein 9.5 H Albumin Triglycerides 89 Cholesterol 114 LDL Cholesterol, Calc 72 HDL Cholesterol 25 L 25-OH Vitamin D Total 28.3 L TSH 2.36 Free T4 1.09 Ur Specific [place] Urine Protein Urine Glucose (UA) Urine Blood 01/26/23 01/26/23 01/26/23 15:31 15:31 15:31 WBC 8.2 Hgb 14.0 Hct 43.8 Plt Count 377 ESR 74 H Sodium 136 Potassium 4.0 Creatinine 0.90 Estimated GFR > 60 Fasting Glucose Hemoglobin A1c % Calcium 9.4 AST 24 ALT 14 Alkaline Phosphatase 147 H C-Reactive Protein 8.98 H Total Protein 9.6 H Albumin 3.1 L Triglycerides Cholesterol LDL Cholesterol, Calc HDL Cholesterol 25-OH Vitamin D Total TSH Free T4 Ur Specific [place] Urine Protein Urine Glucose (UA) Urine Blood Assessment and Plan Assessment & Plan (1) Benign essential hypertension: Code(s): I10 - Essential (primary) hypertension Plan: Reinforced low sodium diet - goal is systolic BP of at least 130 to 140 mm or less Continue Amlodipine 5 mg QD Patient is reminded to continue monitoring his blood pressure regularly Results of his labs done a few days ago reviewed and discussed with patient (2) Severe persistent allergic asthma: Code(s): J45.50 - Severe persistent asthma, uncomplicated Plan: Continue Trelegy Ellipta 1 inhalation QD, Singulair 10 mg QD and Albuterol MDI 2 puffs 4 times a day as needed States that his asthma has been better controlled since starting on Dupixent injections months ago Continue Dupixent injections every 2 weeks - sees Dr. Deniz Ellis for follow up of his allergies Follow-up with Pulmonary at [facility] [place] as scheduled (3) Multiple environmental allergies: Code(s): Z91.09 - Other allergy status, other than to drugs and biological substances Plan: Continue Dupixent injections 300 mg SQ every 2 weeks Follow up with Dr. Deniz Ellis as scheduled (4) Cellulitis of left lower leg: Code(s): L03.116 - Cellulitis of left lower limb Plan: Continue Cephalexin 500 mg Q 6 hours and Doxycycline 100 mg BID - both Abx are to be taken for a total of 10 days of Tx Patient is advised to keep his left leg elevated as often as he can to help with wound healing (5) Wound of left lower extremity: Code(s): S81.802A - Unspecified open wound, left lower leg, initial encounter Qualifiers: Encounter type: sequela Qualified Code(s): S81.802S - Unspecified open wound, left lower leg, sequela Plan: Patient is instructed to continue with daily wound care Per request, will refer him to the wound clinic for further management but have advised patient that if he does not have any significant open wounds or ulcers on his leg, wound care may not really agree to or have to see him for this (6) Hyperproteinemia: Code(s): E88.09 - Other disorders of plasma-protein metabolism, not elsewhere classified Plan: Advised that his serum protein level has increased significantly on his recent labs although this may be due to his current lower leg cellulitis Will have him repeat his metabolic profile and protein level in 10 days for follow up Will also check SPEP in 10 days for further evaluation and if abnormal, will need referral for further evaluation of his hyperproteinemia (7) Acquired hypothyroidism: Code(s): E03.9 - Hypothyroidism, unspecified Plan: Advised that his TFTs have improved significantly on his recent labs Continue Levothyroxine 75 mcg QD Will recheck his TFTs in 6 months for follow up (8) Impaired fasting glucose: Code(s): R73.01 - Impaired fasting glucose Plan: His FBS is still elevated on his recent labs but HgbA1c is normal at 5.8% although he is cautioned that 5.8% is the cut off value between normal blood sugar and borderline diabetes Reinforced low calorie/low carb diet, exercise as tolerated Will continue to monitor his fasting blood sugar regularly (9) 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: Code(s): M47.815 - Spondylosis without myelopathy or radiculopathy, thoracolumbar region Plan: Reinforced activity and weight-lifting restrictions Per request, will refill his Rx for Oxycodone 5 mg - states that he takes this only as needed, mostly just at bedtime, for severe low back pain (10) Lymphedema: Code(s): I89.0 - Lymphedema, not elsewhere classified Plan: Continue Furosemide 20 mg Q AM PRN for increased swelling of his lower legs and feet (11) Morbid obesity with BMI of 50.0-59.9, adult: Code(s): E66.01 - Morbid (severe) obesity due to excess calories; Z68.43 - Body mass index [BMI] 50.0-59.9, adult Plan: Reinforced diet/exercise as tolerated/lose weight - patient prefers not to be weighed at this time Plan Flu vaccine given today To return in 6 months for his next annual physical examination Orders: Orders Influenza [id number] Immunization Today Z23 - Encounter for immunization Comprehensive [place]. Panel Fast 07/22/23 E78.00 - Pure hypercholesterolemia, unspecified, Z00.00 - Encounter for general adult medical examination without abnormal findings Thyroid Stimulating Hormone 07/22/23 E03.9 - Hypothyroidism, unspecified, Z00.00 - Encounter for general adult medical examination without abnormal findings Hemoglobin A1c 07/22/23 E11.9 - Type 2 diabetes mellitus without complications, Z00.00 - Encounter for general adult medical examination without abnormal findings Vitamin D 25-OH Total 07/22/23 E55.9 - Vitamin D deficiency, unspecified, Z00.00 - Encounter for general adult medical examination without abnormal findings Prostate Specific Antigen 07/22/23 N40.0 - Benign prostatic hyperplasia without lower urinary tract symptoms, Z00.00 - Encounter for general adult medical examination without abnormal findings Comprehensive Met. Panel 10 Days E88.09 - Other disorders of plasma-protein metabolism, not elsewhere classified Protein Electrophoresis, Serum 10 Days E88.09 - Other disorders of plasma-protein metabolism, not elsewhere classified Complete Blood Count Auto Diff 07/22/23 I10 - Essential (primary) hypertension, Z00.00 - Encounter for general adult medical examination without abnormal findings Lipid Panel 07/22/23 E78.00 - Pure hypercholesterolemia, unspecified, Z00.00 - Encounter for general adult medical examination without abnormal findings Free T4 (Free Thyroxine) 07/22/23 E03.9 - Hypothyroidism, unspecified, Z00.00 - Encounter for general adult medical examination without abnormal findings UA CC w/rflx Micro + Cult 07/22/23 R30.0 - Dysuria, Z00.00 - Encounter for general adult medical examination without abnormal findings Referrals Wound Care Referral L03.116 - Cellulitis of left lower limb, S81.802A - Unspecified open wound, left lower leg, initial encounter Medications: Refilled oxycodone Take as needed only for severe pain 5 mg PO BID 10 days PRN 20 tabs 0RF pain Coding Level of Care Code Est Pt Level 4 (72050) Diagnoses Benign essential hypertension I10 Severe persistent allergic asthma J45.50 Multiple environmental allergies Z91.09 Cellulitis of left lower leg L03.116 Wound of left lower extremity, sequela S81.802S Encounter type: sequela Hyperproteinemia E88.09 Acquired hypothyroidism E03.9 Impaired fasting glucose R73.01 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
[2023-01-28 09:01] VITALS: BP 142/90; PULSE 91; O2SAT 96
== END 2023-01-28 09:50 | disposition home or self-care (01) ==
PROVIDERS: PCP Internal Medicine; Visit Provider Internal Medicine
DX: Z23 Encounter for immunization (principal)
CPT/HCPCS: 90471; 90686; 99214

== ENCOUNTER 2023-02-05 08:48 | Outpatient (AMB) | payer OTHER, SELFPAY ==
[2023-02-05 08:52] VITALS: BP 137/77; PULSE 81; O2SAT 98; BMI 62.9
--- NOTE | 2023-02-05 08:52 | A.OFFVIS_ITS ---
Intake Vital Signs 02/05/23 08:52 Height 6 ft Weight 464 lb BMI 62.9 BP 137/77 Blood Pressure Location Rt radial Position Sitting Pulse 81 Pulse Source Doppler Pulse Oximetry (%) 98 Oxygen Delivery Method Room Air Intake Visit Reasons: COPD Allergies No Known Allergies Allergy (Verified 02/05/23 08:54) HPI COPD HPI Details 62-year-old gentleman, nonsmoker, follow ed for underlying environmental allergies and severe persistent allergic asthma.? He continues on Dupixent, Trelegy, Singulair, Flonase, and albuterol MDI/nebs with good control of his asthma and allergy symptoms.? He denies any recent exacerbations. No s ignificant changes since his prior visit. ? 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 Kidney calculi Asthma Surgical History Hx of colonoscopy (~02/04/12) Family History Mother Congestive heart failure Father Lung cancer Social History Household Members: Spouse Housing: House Do you presently have visiting nurse or other home services: No Alcohol intake: current Alcohol intake frequency: does not drink Patient Tobacco Use Status: Never used Tobacco e-Cigarette/Vaping Use: Never Used Second Hand Smoke Exposure: Yes service: No Current occupational status: employed Current occupation: [employer] Cognitive needs: No Hearing needs: No Vision needs: No Review of Systems Const Denies daytime sleepiness, Denies excessive sweating, Denies fatigue, Denies fever(s), Denies lethargy, Denies malaise, Denies night sweats, Denies snoring and Denies weight loss Eyes Denies blurry vision and Denies itchy eyes ENT Denies nasal congestion, Denies post nasal drip, Denies sinus pain, Denies sinus pressure and Denies other ( Thrush) Card Denies chest pain, Denies pedal edema, Denies dyspnea, Denies orthopnea and Denies paroxysmal nocturnal dyspnea Resp Denies cough, Denies hemoptysis, Denies excessive phlegm production, Denies dyspnea, Denies snoring and Denies wheezing GI Denies abdominal pain and Denies heartburn Musc Denies myalgias, Denies arthralgias and Denies joint swelling Skin/Breast Denies rash Neuro Denies memory loss and Denies seizure-like activity Psych Denies abnormal sleep pattern, Denies anxiety and Denies memory loss Endo Denies excessive sweating, Denies fatigue and Denies heat intolerance Fabio/Lymph Denies easy bruising Aller/Immun Denies itchy eyes, Denies seasonal rhinorrhea and Denies wheezing Physical Exam Vital Signs: Last Vital Signs Pulse 81 02/05/23 08:52 BP 137/77 02/05/23 08:52 Pulse Ox 98 02/05/23 08:52 Oxygen Delivery Method Room Air 02/05/23 08:52 BMI result Body Mass Index 62.9 Const General: no acute distress and alert Nutritional Appearance: obese Orientation/consciousness: Other orientation findings ( oriented) HEENT Head: Yes atraumatic Eyes General: appearance normal, both eyes and all related structures Sclerae: sclerae normal EOM: EOMs intact bilaterally Neck Neck: Yes supple Lymphatic: no lymphadenopathy noted Resp Effort & Inspection: normal respiratory effort and no use of accessory muscles Auscultation: clear to auscultation bilaterally Cardio Rate: regular rate Rhythm: regular rhythm Heart sounds: no gallops, no murmurs and no rubs Skin General skin exam: other ( warm) Extrem General: No clubbing, No cyanosis and No edema Assessment & Plan Assessment & Plan (1) Severe persistent allergic asthma: Code(s): J45.50 - Severe persistent asthma, uncomplicated Plan: Excellent control on Dupixent, trilogy, albuterol MDI/nebs. Continue current regimen. (2) Environmental allergies: Code(s): Z91.09 - Other allergy status, other than to drugs and biological substances Plan: Well controlled on Dupixent Singulair. Continue current regimen. Medications: Refilled albuterol sulfate 90 mcg/actuation 2 puffs inhalation Q4-6H PRN 1 ea 6RF shortness of breath or wheezing 30 days Trelegy Ellipta 200-62.5-25 mcg ([id number]-[id number]) 1 ea PO DAILY 60 ea 6RF NS Coding Level of Care Code Est Pt Level 4 (43940) Diagnoses Severe persistent allergic asthma J45.50 Environmental allergies Z91.09
== END 2023-02-05 09:30 | disposition home or self-care (01) ==
PROVIDERS: PCP Internal Medicine; Visit Provider Internal Medicine Pulmonary Disease
DX: J45.50 Severe persistent asthma, uncomplicated (principal); Z91.09 Other allergy status, other than to drugs and biological substances
CPT/HCPCS: 99214

== ENCOUNTER → 2023-02-05 08:48 | Outpatient (BNVA) | payer OTHER, SELFPAY | PROVIDERS: PCP Internal Medicine; Visit Provider Internal Medicine Pulmonary Disease ==

== ENCOUNTER 2023-02-07 10:30 | Outpatient (REF) | payer OTHER, SELFPAY ==
[2023-02-07 12:44] LABS: Alanine Aminotransferase 13 U/L (0-40); Albumin Level 3.4 g/dL (3.5-5.0); Alkaline Phosphatase 103 U/L (39-117); Anion Gap 17 (12-20); Aspartate Amino Transferase 30 U/L (5-37); Bilirubin Total 1.5 mg/dL (0.0-1.0); Blood Urea Nitrogen 17 mg/dL (9-16); Calcium 9.7 mg/dL (8.4-10.2); Carbon Dioxide 24 mmol/L (22-29); Chloride 101 mmol/L (96-108); Estimated Glomerular Filt Rate > 60; Glucose Random 140 mg/dL (60-115); Potassium 3.8 mmol/L (3.3-5.1); Sodium 138 mmol/L (135-145); Total Protein 9.7 g/dL (6.5-8.0)
[2023-02-07 12:49] LABS: Appearance Urine Cloudy; Color Urine Dark Yellow; Glucose Urine UA Negative (Negative); Leukocyte Esterase Urine Negative (Negative); Nitrite Urine Negative (Negative); PH 5.5 (5.0-9.0); Specific Gravity - Urine 1.025 (1.005-1.025); Urine Blood Negative (Negative); Urine Ketones Negative (Negative); Urine Protein Trace mg/dL (Neg-Trace)
[2023-02-08 22:58] LABS: Prot Elec - Albumin 3.1 g/dL (3.8-4.8); Prot Elec - Alpha1 0.4 g/dL (0.2-0.3); Prot Elec - Alpha2 0.9 g/dL (0.5-0.9); Prot Elec - Beta 1 0.7 g/dL (0.4-0.6); Prot Elec - Gamma 2.9 g/dL (0.8-1.7); Prot Elec - Total Protein 8.9 g/dL (6.1-8.1)
== END 2023-02-07 10:31 | disposition home or self-care (01) ==
LOC: HO.LAB 10:30
PROVIDERS: PCP Internal Medicine; Visit Provider Internal Medicine
DX: R30.0 Dysuria (principal); E88.09 Other disorders of plasma-protein metabolism, not elsewhere classified
CPT/HCPCS: 36415; 80053; 81003; 84165

== ENCOUNTER → 2023-03-18 08:43 | Outpatient (BNV) | payer OTHER, SELFPAY | PROVIDERS: PCP Internal Medicine; Visit Provider Internal Medicine Medical Oncology | DX: R77.9 Abnormality of plasma protein, unspecified (principal) | CPT/HCPCS: 99204; 99213 ==

== ENCOUNTER 2023-07-29 06:08 | Outpatient (REF) | payer OTHER, SELFPAY ==
[2023-07-29 06:29] LABS: MANUAL DIFF FLAG NO
[2023-07-29 07:49] LABS: Appearance Urine Clear; Color Urine Dark Yellow; Glucose Urine UA Negative (Negative); Leukocyte Esterase Urine Trace (Negative); Nitrite Urine Negative (Negative); PH 5.5 (5.0-9.0); Specific Gravity - Urine 1.025 (1.005-1.025); UMIC TRIGGER UACC YES; Urine Blood Negative (Negative); Urine Ketones Trace mg/dL (Negative); Urine Protein Negative (Neg-Trace)
[2023-07-29 07:52] LABS: Basophils Absolute Auto 0.1 X10*3/uL (0.0-0.2); Basophils Percent Auto 1.1 % (0-2); Eosinophils Absolute Auto 0.4 X10*3/uL (0.0-0.4); Eosinophils Percent Auto 7.1 % (0-4); Hematocrit 47.9 % (42.0-52.0); Hemoglobin 16.1 g/dl (14.0-18.0); Imm Gran Abs Auto 0.03 X10*3/uL (0.00-0.03); Imm Gran Pct Auto 0.5 % (0.0-0.4); Lymphocytes Absolute Auto 1.7 X10*3/uL (1.2-4.9); Mean Corpuscular HGB Conc 33.6 g/dl (31.0-36.0); Mean Corpuscular Hemoglobin 32.2 pg (27.0-33.0); Mean Corpuscular Volume 95.8 fL (80.0-98.0); Mean Platelet Volume 10.3 fL (9.4-12.4); Monocytes Absolute Auto 0.6 X10*3/uL (0.1-1.2); Monocytes Percent Auto 9.7 % (2-11); Neutrophils Absolute Auto 3.3 x10*3/uL (2.0-8.3); Neutrophils Percent Auto 53.6 % (45-73); Platelet Count 204 X10*3/uL (160-400); Red Cell Distribution Width 14.1 % (11.0-16.0); White Blood Count 6.2 X10*3/uL (4.8-10.8)
[2023-07-29 07:55] LABS: Bacteria Urine None Seen (None Seen); RBC Urine 0-2 /HPF (0-2); Squamous Epithelial Cell Urine 0-2 /HPF (0-2); WBC Urine 0-5 /HPF (0-5)
[2023-07-29 07:56] LABS: Estimated Average Glucose 97 mg/dL
[2023-07-29 08:34] LABS: Alanine Aminotransferase 13 U/L (0-40); Albumin Level 3.5 g/dL (3.5-5.0); Alkaline Phosphatase 78 U/L (39-117); Anion Gap 18 (12-20); Aspartate Amino Transferase 21 U/L (5-37); Bilirubin Total 1.8 mg/dL (0.0-1.0); Blood Urea Nitrogen 12 mg/dL (9-16); Calcium 9.7 mg/dL (8.4-10.2); Carbon Dioxide 24 mmol/L (22-29); Chloride 103 mmol/L (96-108); Cholesterol 143 mg/dL (<200); Estimated Glomerular Filt Rate > 60; Glucose Fasting 84 mg/dL (60-99); HDL Cholesterol 33 mg/dL (>40); LDL Cholesterol Calculated 89 mg/dL (<100); Sodium 141 mmol/L (135-145); Total Protein 7.7 g/dL (6.5-8.0); Triglycerides 108 mg/dL (<150)
[2023-07-29 08:45] LABS: Prostate Specific Antigen 0.72 ng/mL (<0.05-4.0)
[2023-07-29 08:50] LABS: Free T4 (Free Thyroxine) 1.12 ng/dL (0.71-1.85); Vitamin D 25-OH Total 41.6 ng/mL (>30)
== END 2023-07-29 06:09 | disposition home or self-care (01) ==
LOC: HO.LAB 06:08
PROVIDERS: PCP Internal Medicine; Visit Provider Internal Medicine
DX: Z00.00 Encounter for general adult medical examination without abnormal findings (principal); E11.9 Type 2 diabetes mellitus without complications; E55.9 Vitamin D deficiency, unspecified; E03.9 Hypothyroidism, unspecified; E78.00 Pure hypercholesterolemia, unspecified; N40.0 Benign prostatic hyperplasia without lower urinary tract symptoms; I10 Essential (primary) hypertension; Z12.5 Encounter for screening for malignant neoplasm of prostate
CPT/HCPCS: 36415; 80053; 80061; 81001; 82306; 83036; 84153; 84439; 84443; 85025

== ENCOUNTER 2023-08-01 08:43 | Outpatient (AMB) | payer OTHER, SELFPAY ==
--- NOTE | 2023-08-01 08:49 | A.OFFPC_ITS ---
Vital Signs 08/01/23 08:50 Height 6 ft Weight 386 lb BMI 52.3 BP 122/76 Blood Pressure Location Lt brachial Position Sitting Pulse 60 Pulse Source Pulse Oximeter Pulse Oximetry (%) 99 Oxygen Delivery Method Room Air Intake Visit Reasons: Annual Exam Intake Note: Patient here for an annual physical exam [place] Required: No Accompanied by: Self / Same As Patient Allergies No Known Allergies Allergy (Verified 08/01/23 09:19) Medication List - Last Reconciled 08/01/23 by Harshad Horn MD albuterol sulfate 2.5 mg continuous nebulization Q6H PRN albuterol sulfate 90 mcg/actuation 2 puffs inhalation Q4-6H PRN 30 days amlodipine 5 mg PO DAILY cholecalciferol (vitamin D3) 50 mcg PO DAILY 90 days diclofenac sodium 75 mg PO BID PRN 30 days dupilumab (Dupixent) 300 mg subcut Q2W fluticasone propionate 50 mcg/actuation (Flonase Allergy Relief) 1 spray intranasal BID 30 days furosemide 20 mg PO QAM PRN 30 days levothyroxine 75 mcg PO DAILY 90 days montelukast 10 mg PO BEDTIME Trelegy Ellipta 200-62.5-25 mcg (wibnurrdmob-vmalsngiq-exxkgrwp) 1 ea PO DAILY NS Tobacco use date assessed: 08/01/23 Dental Screening Dental Screen Date: 08/01/23 Did you have a dental visit in the last 12 months?: Yes Did you have a dental problem in the last 6 months where you did not have access to dental care?: No Was dental information given to patient?: Patient has dentist HPI Annual Exam HPI Details Patient comes in today for his annual physical examination States that he feels okay Has been able to lose about 80 pounds of weight since his last visit - states that he has been strictly watching his diet and counting carbs Relates that his lower back and his knees feel better with his weight loss although his lower back still bothers him from time to time Recalls that he accidentally tripped and fell at the parking lot of [employer] in [place] about 2 to 3 weeks ago and busted his lower lip and one of his front tooth and he is following up with [facility] for his tooth issue Relates that the fall also aggravated his lower back for a while and he is requesting for a refill of his Oxycodone Rx He has also been following up with Dr. Dumont regularly for his hyperproteinemia and all of his work ups so far have been negative He denies any headaches or dizziness Denies any chest pains, no SOB No nausea/vomiting, no abdominal pain No change in bowel habits noted He denies any acute urinary symptoms Had his follow up labs done a few days ago - to discuss his results He last had his screening colonoscopy done by Dr. 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 Kidney calculi Asthma Surgical History Hx of colonoscopy (~02/04/12) Family History Mother Congestive heart failure Father Lung cancer Social History Household Members: Spouse Housing: House Do you presently have visiting nurse or other home services: No Alcohol intake: current Alcohol intake frequency: does not drink Patient Tobacco Use Status: Never used Tobacco e-Cigarette/Vaping Use: Never Used Second Hand Smoke Exposure: Yes service: No Current occupational status: employed Current occupation: [employer] Current occupational exposures/hazards: No Cognitive needs: No Hearing needs: No Vision needs: No Questionnaire PHQ-9 Over the last 2 weeks, how often have you been bothered by any of the following problems? 1. Little interest or pleasure in doing things: not at all 2. Feeling down, depressed, or hopeless: not at all 3. Trouble falling or staying asleep, or sleeping too much: not at all 4. Feeling tired or having little energy: not at all 5. Poor appetite or overeating: not at all 6. Feeling bad about yourself - or that you are a failure or have let yourself or your family down: not at all 7. Trouble concentrating on things, such as reading the newspaper or watching television: not at all 8. Moving or speaking so slowly that other people could have noticed. Or the opposite - being so fidgety or restless that you have been moving around a lot more than usual: not at all 9. Thoughts that you would be better off or of hurting yourself in some way: not at all Total score: 0 Depression Screening Interpretation: Negative Depression Screening Done: Yes 31395 - PHQ-9 Billing: Yes Source: Developed by Drs. Chon Wilsno, Shawna Tijerina, Juan Judge and colleagues, with an educational abi from [employer]. Thrive Questionnaire Date Thrive assessed: 08/01/23 I am a: Patient What is your living situation today?: I have a steady place to live Within the past 12 months, did the food you bought not last and you didn't have the money to get more?: Never true Within the past 12 months, did you worry whether your food would run out before you got money to buy more?: Never true Do you have trouble paying for medicines?: No Do you have trouble getting transportation to medical appointments?: No Do you have trouble paying your heating and electricity bill?: No Do you have trouble taking care of your child, family member or friend?: No Do you have trouble with day-to-day activities such as bathing, preparing meals, shopping, managing finances, etc.?: No Are you currently unemployed and looking for a job?: No Are you interested in more education?: No Please select the resources that you would like help with: None Currently or been in a relationship where the following occur: no concerns reported THRIVE Score: 0 AUDIT C Alcohol Use Questionnaire (AUDIT-C) 1. How often do you have a drink containing alcohol?: Monthly or less 2. How many drinks containing alcohol do you have on a typical day when you are drinking?: 1 or 2 3. How often do you have six or more drinks on one occasion?: Never Total Score: 1 Score Reviewed/Action Taken: Yes MARILEE-7 AMB Questionnaire MARILEE-7 Date MARILEE - 7 assessed: 08/01/23 Feeling nervous, anxious, or on edge: 0 = Not at all Not being able to stop or control worryin = Not at all Worrying too much about different things: 0 = Not at all Trouble relaxin = Not at all Being so restless that it is hard to sit still: 0 = Not at all Becoming easily annoyed or irritable: 0 = Not at all Feeling afraid as if something awful might happen: 0 = Not at all Total MARILEE-7 score (0-4 normal; 5-9 mild; 10-14 moderate; 15-21 severe): 0 Source: Developed by Drs. Chon Wilson, Shawna Tijerina, Juan Judge and colleagues, with an educational abi from [employer]. Review of Systems Const Denies chills, Denies fatigue, Denies fever(s), Denies headache(s), Denies malaise and Denies weakness Eyes Denies blurry vision, Denies change in vision, Denies irritation and Denies itchy eyes ENT Denies dysphagia, Denies dizziness, Denies otalgia, Denies headache(s), Denies nasal congestion, Denies neck pain, Denies odynophagia and Denies sore throat Card Denies chest pain, Denies rapid heart rate, Denies irregular heart rhythm, Denies palpitations and Denies dyspnea Resp Denies chest congestion, Denies cough, Denies dyspnea and Denies wheezing GI Denies abdominal pain, Denies bloating, Denies constipation, Denies dysphagia, Denies heartburn, Denies diarrhea, Denies nausea, Denies odynophagia and Denies vomiting Denies hematuria, Denies difficulty urinating, Denies dysuria, Denies urinary frequency and Denies urinary urgency Musc Reports back pain (over the lower back - chronic), Denies arthralgias, Denies joint swelling, Denies muscle weakness and Denies neck pain Skin/Breast Denies change in pigmentation, Denies lesions, Denies rash and Denies unusual bruising Neuro Denies dizziness, Denies headache(s), Denies paresthesias and Denies weakness Endo Denies fatigue and Denies palpitations Aller/Immun Denies itchy eyes and Denies wheezing Physical exam (Primary Care) Vital Signs: Last Vital Signs Pulse 60 08/01/23 08:50 BP 122/76 08/01/23 08:50 Pulse Ox 99 08/01/23 08:50 Oxygen Delivery Method Room Air 08/01/23 08:50 BMI result Body Mass Index 52.3 Tobacco/Smoking Status: Tobacco use Status Tobacco use date assessed 08/01/23 08/01/23 08:54 Patient Tobacco Use Status Never used Tobacco 08/01/23 08:54 e-Cigarette/Vaping Use Never Used 08/01/23 08:54 PHQ-9: PHQ-9 Score PHQ-9: Total score 0 08/01/23 08:54 Depression Screening Interpretation: Negative Thrive Assessment: Date of Thrive Assessment Date Thrive assessed 08/01/23 08/01/23 08:54 Currently or been in a relationship where the following occur: no concerns reported Const General: no acute distress, alert and awake Orientation/consciousness: patient oriented x3 HENMT Head: Yes normocephalic and Yes atraumatic Ears: external ears normal, TM's normal bilaterally and EAC's normal General nose exam: No nasal discharge present Face and sinus: Yes normal facial exam and Yes sinuses nontender Teeth and gingiva: dentition normal Throat: Yes posterior oropharynx normal and Yes tonsils normal (no TP congestion) Eyes Eyelids: Yes eyelids normal Conjunctivae: conjunctivae normal Pupils: Equal, round and reactive pupils present EOM: EOMs intact bilaterally Neck Neck: Yes no lymphadenopathy and Yes supple Thyroid: Thyroid normal Resp Auscultation: clear to auscultation bilaterally, no rales and no wheezes Cardio Rate: regular rate Rhythm: regular rhythm Heart sounds: no murmurs GI Palpation (GI): Soft to palpation, nontender and No hepatosplenomegaly present Auscultation: normal bowel sounds General: Yes no CVA tenderness Back/Spine/Pelvis Back: no CVA tenderness Thoracic/Lumbar Spine: lumbar spinal tenderness Skin Lesions: no lesions Rashes: no rashes Neuro General: patient oriented x3, moves all extremities, no focal motor deficits and CN's II-XI intact bilaterally Cranial nerves: Yes Equal, round and reactive pupils present Cognition (Neuro): normal cognition Gait exam (Neuro): Normal gait present Extrem General: Yes no clubbing, cyanosis or edema Results Reviewed Results Reviewed: Laboratory Tests 07/29/23 07/29/23 06:25 06:27 WBC 6.2 Hgb 16.1 Hct 47.9 Plt Count 204 Sodium 141 Potassium 4.0 Creatinine 0.80 Estimated GFR > 60 Fasting Glucose 84 Hemoglobin A1c % 5.0 Calcium 9.7 AST 21 ALT 13 Total Protein 7.7 Triglycerides 108 Cholesterol 143 LDL Cholesterol, Calc 89 HDL Cholesterol 33 L Prostate Specific Ag 0.72 25-OH Vitamin D Total 41.6 TSH 1.00 Free T4 1.12 Ur Specific [place] 1.025 Urine Protein Negative Urine Glucose (UA) Negative Urine Blood Negative Urine Nitrite Negative Ur Leukocyte Esterase Trace H Assessment and Plan Assessment & Plan (1) Annual physical exam: Code(s): Z00.00 - Encounter for general adult medical examination without abnormal findings Plan: Results of his labs done a few days ago reviewed and discussed with patient He had his screening colonoscopy last done in 2011 and he is now due for repeat colonoscopy - will be referred (2) Benign essential hypertension: Code(s): I10 - Essential (primary) hypertension Plan: Reinforced low sodium diet - goal is systolic BP of at least 130 to 140 mm or less Continue Amlodipine 5 mg QD Patient is reminded to continue monitoring his blood pressure regularly (3) Acquired hypothyroidism: Code(s): E03.9 - Hypothyroidism, unspecified Plan: His TFTs were normal on his recent labs Continue Levothyroxine 75 mcg QD Will recheck his TFTs in 6 months for follow up (4) Severe persistent allergic asthma: Code(s): J45.50 - Severe persistent asthma, uncomplicated Plan: Continue Trelegy Ellipta 1 inhalation QD, Singulair 10 mg QD and Albuterol MDI 2 puffs 4 times a day as needed States that his asthma has been better controlled since starting on Dupixent injections last year Continue Dupixent injections every 2 weeks - sees Dr. Deniz Ellis for follow up of his allergies Follow-up with [facility] Pulmonary as scheduled (5) Multiple environmental allergies: Code(s): Z91.09 - Other allergy status, other than to drugs and biological substances Plan: Continue Dupixent injections 300 mg SQ every [address] up with [address] Deniz Ellis as scheduled (6) Hyperproteinemia: Code(s): E88.09 - Other disorders of plasma-protein metabolism, not elsewhere classified Plan: He was referred to hematology due to persistent elevation of his serum protein level over the past couple of years Hyperproteinemia work ups have all been negative so far Follow up with Dr. 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: Code(s): M47.815 - Spondylosis without myelopathy or radiculopathy, thoracolumbar region Plan: Reinforced activity and weight-lifting restrictions Per request, will refill his Rx for Oxycodone 5 mg - states that he takes this only as needed, mostly just at bedtime, for severe low back pain (9) Lymphedema: Code(s): I89.0 - Lymphedema, not elsewhere classified Plan: Continue Furosemide 20 mg Q AM PRN for increased swelling of his lower legs and feet (10) Morbid obesity with BMI of 50.0-59.9, adult: Code(s): E66.01 - Morbid (severe) obesity due to excess calories; Z68.43 - Body mass index [BMI] 50.0-59.9, adult Plan: Reinforced diet/exercise as tolerated/lose weight - he has been able to lose about 80 pounds since his last visit (11) Colon cancer screening: Code(s): Z12.11 - Encounter for screening for malignant neoplasm of colon Plan: He last had his screening colonoscopy done in 2011 and he is now due for repeat colonoscopy Will refer him to GI to get this processed and scheduled Plan Follow up in 6 months Orders: Orders Complete Blood Count Auto Diff 6 Months D64.9 - Anemia, unspecified Lipid Panel 6 Months E78.00 - Pure hypercholesterolemia, unspecified Thyroid Stimulating Hormone 6 Months E03.9 - Hypothyroidism, unspecified UA CC w/rflx Micro + Cult 6 Months R30.0 - Dysuria Comprehensive Villalba. Panel Fast 6 Months E78.00 - Pure hypercholesterolemia, unspecified Free T4 (Free Thyroxine) 6 Months E03.9 - Hypothyroidism, unspecified Vitamin D 25-OH Total 6 Months E55.9 - Vitamin D deficiency, unspecified Referrals Gastroenterology Referral Z12.11 - Encounter for screening for malignant neoplasm of colon Medications: Refilled oxycodone Take as needed only for severe pain 5 mg PO BID 10 days PRN 20 tabs 0RF pain Coding Level of Care Code Est Pt Prev Care 40-64y(87397) Diagnoses Annual physical exam Z00.00 Benign essential hypertension I10 Acquired hypothyroidism E03.9 Severe persistent allergic asthma J45.50 Multiple environmental allergies Z91.09 Hyperproteinemia E88.09 Impaired fasting glucose R73.01 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
[2023-08-01 08:50] VITALS: BP 122/76; PULSE 60; O2SAT 99; BMI 52.3
== END 2023-08-01 09:33 | disposition home or self-care (01) ==
PROVIDERS: PCP Internal Medicine; Visit Provider Internal Medicine
DX: Z00.00 Encounter for general adult medical examination without abnormal findings (principal); J45.50 Severe persistent asthma, uncomplicated; E66.01 Morbid (severe) obesity due to excess calories; Z68.43 Body mass index [BMI] 50.0-59.9, adult; I10 Essential (primary) hypertension; E03.9 Hypothyroidism, unspecified; Z91.09 Other allergy status, other than to drugs and biological substances; E88.09 Other disorders of plasma-protein metabolism, not elsewhere classified; R73.01 Impaired fasting glucose; M47.815 Spondylosis without myelopathy or radiculopathy, thoracolumbar region; I89.0 Lymphedema, not elsewhere classified; Z12.11 Encounter for screening for malignant neoplasm of colon
CPT/HCPCS: 99396

== ENCOUNTER 2023-12-04 09:15 | Outpatient (AMB) | payer OTHER, SELFPAY ==
[2023-12-04 09:19] VITALS: BP 122/64; PULSE 60; O2SAT 100; BMI 60.9
--- NOTE | 2023-12-04 09:19 | MHC.OFFVIS ---
Vital Signs 12/04/23 09:19 Height 6 ft Weight 449 lb BMI 60.9 BP 122/64 Blood Pressure Location Rt radial Position Sitting Pulse 60 Pulse Source Doppler Pulse Oximetry (%) 100 Oxygen Delivery Method Room Air Intake Visit Reasons: COPD Allergies No Known Allergies Allergy (Verified 12/04/23 09:22) HPI HPI COPD: Details: 63-year-old gentleman, nonsmoker, followed for underlying environmental allergies and severe persistent allergic asthma.? He continues on Dupixent, Trelegy, Singulair, Flonase, and albuterol MDI/nebs with good control of his asthma and allergy symptoms.? He denies any recent exacerbations. Patient did have a case of poison lizet over the summer treated with brief prednisone taper with good response. 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 Kidney calculi Asthma Surgical History Hx of colonoscopy (~02/04/12) Family History Mother Congestive heart failure Father Lung cancer Social History Household Members: Spouse Housing: House Do you presently have visiting nurse or other home services: No Alcohol intake: current Alcohol intake frequency: does not drink Patient Tobacco Use Status: Never used Tobacco e-Cigarette/Vaping Use: Never Used Second Hand Smoke Exposure: Yes service: No Current occupational status: employed Current occupation: [employer] Current occupational exposures/hazards: No Cognitive needs: No Hearing needs: No Vision needs: No Review of Systems Const Denies daytime sleepiness, Denies excessive sweating, Denies fatigue, Denies fever(s), Denies lethargy, Denies malaise, Denies night sweats, Denies snoring and Denies weight loss Eyes Denies blurry vision and Denies itchy eyes ENT Denies nasal congestion, Denies post nasal drip, Denies sinus pain, Denies sinus pressure and Denies other ( Thrush) Card Denies chest pain, Denies pedal edema, Denies dyspnea, Denies orthopnea and Denies paroxysmal nocturnal dyspnea Resp Denies cough, Denies hemoptysis, Denies excessive phlegm production, Denies dyspnea, Denies snoring and Denies wheezing GI Denies abdominal pain and Denies heartburn Musc Denies myalgias, Denies arthralgias and Denies joint swelling Skin/Breast Denies rash Neuro Denies memory loss and Denies seizure-like activity Psych Denies abnormal sleep pattern, Denies anxiety and Denies memory loss Endo Denies excessive sweating, Denies fatigue and Denies heat intolerance Fabio/Lymph Denies easy bruising Aller/Immun Denies itchy eyes, Denies seasonal rhinorrhea and Denies wheezing Physical Exam Vital Signs: Last Vital Signs Pulse 60 12/04/23 09:19 BP 122/64 12/04/23 09:19 Pulse Ox 100 12/04/23 09:19 Oxygen Delivery Method Room Air 12/04/23 09:19 BMI result Body Mass Index 60.9 Const General: no acute distress and alert Nutritional Appearance: obese Orientation/consciousness: Other orientation findings ( oriented) HEENT Head: Yes atraumatic Eyes General: appearance normal, both eyes and all related structures Sclerae: sclerae normal EOM: EOMs intact bilaterally Neck Neck: Yes supple Lymphatic: no lymphadenopathy noted Resp Effort & Inspection: normal respiratory effort and no use of accessory muscles Auscultation: clear to auscultation bilaterally Cardio Rate: regular rate Rhythm: regular rhythm Heart sounds: no gallops, no murmurs and no rubs Skin General skin exam: other ( warm) Extrem General: No clubbing, No cyanosis and No edema Assessment & Plan Assessment & Plan (1) Severe persistent allergic asthma: Code(s): J45.50 - Severe persistent asthma, uncomplicated Category: Medical Plan: Well controlled on current regimen of Dupixent, Trelegy, and albuterol MDI/nebs. Continue current regimen. (2) Environmental allergies: Code(s): Z91.09 - Other allergy status, other than to drugs and biological substances Category: Medical Plan: Well controlled on Dupixent, Zyrtec, and Singulair. Continue current regimen. Coding Level of Care Code Est Pt Level 4 (64376) Diagnoses Severe persistent allergic asthma J45.50 Environmental allergies Z91.09
== END 2023-12-04 09:30 | disposition home or self-care (01) ==
PROVIDERS: PCP Internal Medicine; Referring Provider Internal Medicine; Visit Provider Internal Medicine Pulmonary Disease
DX: J45.50 Severe persistent asthma, uncomplicated (principal); Z91.09 Other allergy status, other than to drugs and biological substances
CPT/HCPCS: 99214

== ENCOUNTER → 2023-12-04 09:15 | Outpatient (BNVA) | payer OTHER, SELFPAY | PROVIDERS: PCP Internal Medicine; Visit Provider Internal Medicine Pulmonary Disease ==

== ENCOUNTER 2024-01-27 06:06 | Outpatient (REF) | payer OTHER, SELFPAY ==
[2024-01-27 06:18] LABS: MANUAL DIFF FLAG NO
[2024-01-27 07:14] LABS: Basophils Absolute Auto 0.1 X10*3/uL (0.0-0.2); Basophils Percent Auto 1.2 % (0-2); Eosinophils Absolute Auto 0.6 X10*3/uL (0.0-0.4); Eosinophils Percent Auto 7.2 % (0-4); Hemoglobin 16.3 g/dl (14.0-18.0); Imm Gran Abs Auto 0.03 X10*3/uL (0.00-0.03); Imm Gran Pct Auto 0.4 % (0.0-0.4); Lymphocytes Absolute Auto 2.2 X10*3/uL (1.2-4.9); Mean Corpuscular Hemoglobin 31.1 pg (27.0-33.0); Mean Corpuscular Volume 91.6 fL (80.0-98.0); Mean Platelet Volume 9.9 fL (9.4-12.4); Monocytes Absolute Auto 0.8 X10*3/uL (0.1-1.2); Monocytes Percent Auto 9.1 % (2-11); Neutrophils Absolute Auto 4.7 x10*3/uL (2.0-8.3); Neutrophils Percent Auto 56.1 % (45-73); Platelet Count 211 X10*3/uL (160-400); Red Blood Count 5.24 X10*6/uL (4.60-5.80); Red Cell Distribution Width 13.2 % (11.0-16.0); White Blood Count 8.3 X10*3/uL (4.8-10.8)
[2024-01-27 07:23] LABS: Appearance Urine Clear; Color Urine Yellow; Glucose Urine UA Negative (Negative); Leukocyte Esterase Urine Negative (Negative); Nitrite Urine Negative (Negative); PH 5.5 (5.0-9.0); Specific Gravity - Urine 1.015 (1.005-1.025); UMIC TRIGGER UACC YES; Urine Blood Trace (Negative); Urine Ketones Negative (Negative); Urine Protein Negative (Neg-Trace)
[2024-01-27 07:29] LABS: Bacteria Urine None Seen (None Seen); Hyaline Casts Urine 0-2 /LPF (0-2); RBC Urine 0-2 /HPF (0-2); Squamous Epithelial Cell Urine 0-2 /HPF (0-2); WBC Urine 0-5 /HPF (0-5)
[2024-01-27 07:50] LABS: Alanine Aminotransferase 13 U/L (0-40); Albumin Level 3.8 g/dL (3.5-5.0); Alkaline Phosphatase 87 U/L (39-117); Anion Gap 12 (12-20); Aspartate Amino Transferase 28 U/L (5-37); Bilirubin Total 1.7 mg/dL (0.0-1.0); Blood Urea Nitrogen 18 mg/dL (9-16); Calcium 9.7 mg/dL (8.4-10.2); Carbon Dioxide 28 mmol/L (22-29); Chloride 102 mmol/L (96-108); Cholesterol 162 mg/dL (<200); Estimated Glomerular Filt Rate > 60; Glucose Fasting 106 mg/dL (60-99); HDL Cholesterol 52 mg/dL (>40); LDL Cholesterol Calculated 92 mg/dL (<100); Potassium 4.1 mmol/L (3.3-5.1); Sodium 138 mmol/L (135-145); Total Protein 8.5 g/dL (6.5-8.0); Triglycerides 90 mg/dL (<150)
[2024-01-27 08:27] LABS: Free T4 (Free Thyroxine) 1.05 ng/dL (0.71-1.85); Thyroid Stimulating Hormone 8.59 uIU/mL (0.32-4.0); Vitamin D 25-OH Total 36.5 ng/mL (>30)
== END 2024-01-27 06:07 | disposition home or self-care (01) ==
LOC: HO.LAB 06:06
PROVIDERS: PCP Internal Medicine; Visit Provider Internal Medicine
DX: E03.9 Hypothyroidism, unspecified (principal); E55.9 Vitamin D deficiency, unspecified; E78.00 Pure hypercholesterolemia, unspecified; D64.9 Anemia, unspecified
CPT/HCPCS: 36415; 80053; 80061; 81001; 82306; 84439; 84443; 85025

== ENCOUNTER 2024-01-31 09:12 | Outpatient (AMB) | payer OTHER, SELFPAY ==
[2024-01-31 09:13] VITALS: BP 128/84; PULSE 63; O2SAT 97
--- NOTE | 2024-01-31 09:13 | MHC.PC.OV ---
Vital Signs 01/31/24 09:13 Height 6 ft BMI Reason not done Patient refused/unable BP 128/84 Blood Pressure Location Lt brachial Position Sitting Pulse 63 Pulse Source Pulse Oximeter Pulse Oximetry (%) 97 Oxygen Delivery Method Room Air Intake Visit Reasons: Hypothyroidism, Hyperproteinemia, IFG Beet Topper Required: No Accompanied by: Self / Same As Patient Allergies No Known Allergies Allergy (Verified 01/31/24 09:40) Medication List - Last Reconciled 01/31/24 by Harshad Horn MD albuterol sulfate 2.5 mg continuous nebulization Q6H PRN albuterol sulfate 90 mcg/actuation 2 puffs inhalation Q4-6H PRN 30 days amlodipine 5 mg PO DAILY cholecalciferol (vitamin D3) 50 mcg PO DAILY 90 days diclofenac sodium 75 mg PO BID PRN 30 days dupilumab (Dupixent) 300 mg subcut Q2W fluticasone propionate 50 mcg/actuation (Flonase Allergy Relief) 1 spray intranasal BID 30 days furosemide 20 mg PO QAM PRN 30 days levothyroxine 75 mcg PO DAILY 90 days montelukast 10 mg PO BEDTIME Trelegy Ellipta 200-62.5-25 mcg ([id number]) 1 ea PO DAILY NS Tobacco use date assessed: 01/31/24 Dental Screening Dental Screen Date: 01/31/24 Did you have a dental visit in the last 12 months?: Yes Did you have a dental problem in the last 6 months where you did not have access to dental care?: No Was dental information given to patient?: Patient has dentist HPI Hypothyroidism, Hyperproteinemia, IFG HPI Details Patient comes in today for his follow up visit States that he feels okay He denies any headaches or dizziness Denies any chest pains, no increased SOB No nauea/vomiting, no abdominal pain No change in bowel habits noted Needs his Oxycodone Rx refilled He had his follow up labs done a few days ago - to discuss his results [facility] Medical History Impaired fasting glucose Lymphedema Acquired hypothyroidism Vitamin D deficiency Multiple environmental allergies Benign essential hypertension Morbid obesity with BMI of 60.0-69.9, adult 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 Kidney calculi Asthma Surgical History Hx of colonoscopy (~02/04/12) Family History Mother Congestive heart failure Father Lung cancer Social History Household Members: Spouse Housing: House Do you presently have visiting nurse or other home services: No Alcohol intake: current Alcohol intake frequency: does not drink Patient Tobacco Use Status: Never used Tobacco e-Cigarette/Vaping Use: Never Used Second Hand Smoke Exposure: Yes service: No Current occupational status: employed Current occupation: [employer] Current occupational exposures/hazards: No Cognitive needs: No Hearing needs: No Vision needs: No Questionnaire PHQ-9 Over the last 2 weeks, how often have you been bothered by any of the following problems? 1. Little interest or pleasure in doing things: not at all 2. Feeling down, depressed, or hopeless: not at all 3. Trouble falling or staying asleep, or sleeping too much: not at all 4. Feeling tired or having little energy: not at all 5. Poor appetite or overeating: not at all 6. Feeling bad about yourself - or that you are a failure or have let yourself or your family down: not at all 7. Trouble concentrating on things, such as reading the newspaper or watching television: not at all 8. Moving or speaking so slowly that other people could have noticed. Or the opposite - being so fidgety or restless that you have been moving around a lot more than usual: not at all 9. Thoughts that you would be better off or of hurting yourself in some way: not at all Total score: 0 Depression Screening Interpretation: Negative Depression Screening Done: Yes 63098 - PHQ-9 Billing: Yes Source: Developed by Drs. Chon Wilson, Shawna Tijerina, Juan Judge and colleagues, with an educational abi from [employer]. Thrive Questionnaire Date Thrive assessed: 01/31/24 I am a: Patient What is your living situation today?: I have a steady place to live Within the past 12 months, did the food you bought not last and you didn't have the money to get more?: Never true Within the past 12 months, did you worry whether your food would run out before you got money to buy more?: Never true Do you have trouble paying for medicines?: No Do you have trouble getting transportation to medical appointments?: No Do you have trouble paying your heating and electricity bill?: No Do you have trouble taking care of your child, family member or friend?: No Do you have trouble with day-to-day activities such as bathing, preparing meals, shopping, managing finances, etc.?: No Are you currently unemployed and looking for a job?: No Are you interested in more education?: No Please select the resources that you would like help with: None Currently or been in a relationship where the following occur: No concerns reported THRIVE Score: 0 AUDIT C Alcohol Use Questionnaire (AUDIT-C) 1. How often do you have a drink containing alcohol?: Monthly or less 2. How many drinks containing alcohol do you have on a typical day when you are drinking?: 1 or 2 3. How often do you have six or more drinks on one occasion?: Never Total Score: 1 Score Reviewed/Action Taken: Yes MARILEE-7 AMB Questionnaire MARILEE-7 Date MARILEE - 7 assessed: 01/31/24 Feeling nervous, anxious, or on edge: 0 = Not at all Not being able to stop or control worryin = Not at all Worrying too much about different things: 0 = Not at all Trouble relaxin = Not at all Being so restless that it is hard to sit still: 0 = Not at all Becoming easily annoyed or irritable: 0 = Not at all Feeling afraid as if something awful might happen: 0 = Not at all Total MARILEE-7 score (0-4 normal; 5-9 mild; 10-14 moderate; 15-21 severe): 0 Source: Developed by Drs. Chon Wilson, Shawna Tijerina, Juan Judge and colleagues, with an educational abi from [employer]. Review of Systems Const Denies chills, Denies fatigue, Denies fever(s) and Denies headache(s) ENT Denies dysphagia, Denies dizziness, Denies otalgia, Denies headache(s), Denies neck pain, Denies odynophagia and Denies sore throat Card Denies chest pain, Denies irregular heart rhythm, Denies palpitations and Denies dyspnea Resp Denies chest congestion, Denies cough, Denies dyspnea and Denies wheezing GI Denies abdominal pain, Denies constipation, Denies dysphagia, Denies heartburn, Denies diarrhea, Denies nausea, Denies odynophagia and Denies vomiting Denies difficulty urinating, Denies dysuria and Denies urinary frequency Musc Reports back pain (over the lower back - chronic), Denies arthralgias and Denies neck pain Skin/Breast Denies rash Neuro Denies dizziness, Denies headache(s) and Denies paresthesias Endo Denies fatigue and Denies palpitations Aller/Immun Denies wheezing Physical exam (Primary Care) Vital Signs: Last Vital Signs Pulse 63 01/31/24 09:13 BP 128/84 01/31/24 09:13 Pulse Ox 97 01/31/24 09:13 Oxygen Delivery Method Room Air 01/31/24 09:13 Tobacco/Smoking Status: Tobacco use Status Tobacco use date assessed 01/31/24 01/31/24 09:16 Patient Tobacco Use Status Never used Tobacco 01/31/24 09:16 e-Cigarette/Vaping Use Never Used 01/31/24 09:16 PHQ-9: PHQ-9 Score PHQ-9: Total score 0 01/31/24 09:16 Depression Screening Interpretation: Negative Thrive Assessment: Date of Thrive Assessment Date Thrive assessed 01/31/24 01/31/24 09:16 Currently or been in a relationship where the following occur: No concerns reported Const General: no acute distress and alert HENMT Ears: TM's normal bilaterally and EAC's normal Throat: Yes posterior oropharynx normal and Yes tonsils normal (no TP congestion) Neck Neck: Yes supple and No lymphadenopathy Thyroid: Thyroid normal Resp Auscultation: clear to auscultation bilaterally, no rales and no wheezes Cardio Rate: regular rate Rhythm: regular rhythm Heart sounds: no murmurs GI Palpation (GI): Soft to palpation and nontender Auscultation: normal bowel sounds General: Yes no CVA tenderness Back/Spine/Pelvis Back: no CVA tenderness Thoracic/Lumbar Spine: lumbar spinal tenderness Skin Rashes: no rashes Extrem General: Yes no clubbing, cyanosis or edema Results Reviewed Results Reviewed: Laboratory Tests 01/27/24 01/27/24 06:10 06:17 WBC 8.3 Hgb 16.3 Hct 48.0 Plt Count 211 Sodium 138 Potassium 4.1 Creatinine 0.93 Estimated GFR > 60 Fasting Glucose 106 H Calcium 9.7 D AST 28 ALT 13 Triglycerides 90 Cholesterol 162 LDL Cholesterol, Calc 92 HDL Cholesterol 52 25-OH Vitamin D Total 36.5 TSH 8.59 H Free T4 1.05 Ur Specific [place] 1.015 Urine Protein Negative Urine Glucose (UA) Negative Urine Blood Trace H Urine Nitrite Negative Ur Leukocyte Esterase Negative Coding Level of Care Code Est Pt Level 4 (37642) Diagnoses Benign essential hypertension I10 Acquired hypothyroidism E03.9 Impaired fasting glucose R73.01 Severe persistent allergic asthma J45.50 Multiple environmental allergies Z91.09 Hyperproteinemia E88.09 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 Additional Codes PHQ-9 - 85547 - PHQ-9 Billing: Yes ([id number]) Assessment & Plan Assessment & Plan (1) Benign essential hypertension: Code(s): I10 - Essential (primary) hypertension Category: Medical Plan: Reinforced low sodium diet - goal is systolic BP of at least 130 to 140 mm or less Continue Amlodipine 5 mg QD Patient is reminded to continue monitoring his blood pressure regularly (2) Acquired hypothyroidism: Code(s): E03.9 - Hypothyroidism, unspecified Category: Medical Plan: Patient's TSH was elevated on his recent labs but his free T4 level remained normal Continue Levothyroxine 75 mcg QD for now Will recheck his TFTs in 6 months for follow up (3) Impaired fasting glucose: Code(s): R73.01 - Impaired fasting glucose Category: Medical Plan: Results of his labs done a few days ago reviewed and discussed with patient His FBS is again slightly elevated at 106 mg/dl on his recent labs; HgbA1c was normal at 5.0% when previously checked Reinforced low calorie/low carb diet, exercise as tolerated Will continue to monitor his fasting blood sugar and HgbA1c routinely (4) Severe persistent allergic asthma: Code(s): J45.50 - Severe persistent asthma, uncomplicated Category: Medical Plan: Continue Trelegy Ellipta 1 inhalation QD, Singulair 10 mg QD and Albuterol MDI 2 puffs 4 times a day as needed Continue Dupixent injections every 2 weeks Patient states that his asthma has been much better controlled since starting on Dupixent injections last year Follow-up with [facility] [place] Pulmonary as scheduled (5) Multiple environmental allergies: Code(s): Z91.09 - Other allergy status, other than to drugs and biological substances Category: Medical Plan: Patient states that his allergies have also been much better controlled on Dupixent Continue Dupixent injections 300 mg SQ every [address] up [address] Deniz Ellis as scheduled (6) Hyperproteinemia: Code(s): E88.09 - Other disorders of plasma-protein metabolism, not elsewhere classified Category: Medical Plan: Patient was noticed to have persistent elevation of his serum protein level over the past couple of years Hyperproteinemia work ups have all been negative so far He was referred to Dr. 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: Code(s): M47.815 - Spondylosis without myelopathy or radiculopathy, thoracolumbar region Category: Medical Plan: Reinforced activity and weight-lifting restrictions to avoid aggravating his low back pain Per request, will refill his Rx for Oxycodone 5 mg - states that he takes this only as needed, mostly just at bedtime, for severe low back pain (8) Lymphedema: Code(s): I89.0 - Lymphedema, not elsewhere classified Category: Medical Plan: Continue Furosemide 20 mg Q AM PRN for increased swelling of his lower legs and feet (9) Morbid obesity with BMI of 50.0-59.9, adult: Code(s): E66.01 - Morbid (severe) obesity due to excess calories; Z68.43 - Body mass index [BMI] 50.0-59.9, adult Category: Medical Plan: Reinforced diet/exercise as tolerated/lose weight Plan Follow up in 6 months Orders: Orders Lipid Panel 6 Months E78.00 - Pure hypercholesterolemia, unspecified Thyroid Stimulating Hormone 6 Months E03.9 - Hypothyroidism, unspecified Vitamin D 25-OH Total 6 Months E55.9 - Vitamin D deficiency, unspecified Vitamin B12 and Folate 6 Months E53.8 - Deficiency of other specified B group vitamins Hemoglobin A1c 6 Months R73.01 - Impaired fasting glucose Complete Blood Count Auto Diff 6 Months D64.9 - Anemia, unspecified Comprehensive [place]. Panel Fast 6 Months E78.00 - Pure hypercholesterolemia, unspecified Free T4 (Free Thyroxine) 6 Months E03.9 - Hypothyroidism, unspecified Medications: Refilled oxycodone Take as needed only for severe pain 5 mg PO BID 7 days PRN 14 tabs 0RF pain
== END 2024-01-31 09:58 | disposition home or self-care (01) ==
PROVIDERS: PCP Internal Medicine; Visit Provider Internal Medicine
DX: I10 Essential (primary) hypertension (principal); E03.9 Hypothyroidism, unspecified; R73.01 Impaired fasting glucose; J45.50 Severe persistent asthma, uncomplicated; Z91.09 Other allergy status, other than to drugs and biological substances; E88.09 Other disorders of plasma-protein metabolism, not elsewhere classified; M47.815 Spondylosis without myelopathy or radiculopathy, thoracolumbar region; I89.0 Lymphedema, not elsewhere classified; E66.01 Morbid (severe) obesity due to excess calories; Z68.43 Body mass index [BMI] 50.0-59.9, adult

== ENCOUNTER → 2024-01-31 09:12 | Outpatient (BNVA) | payer OTHER, SELFPAY | PROVIDERS: PCP Internal Medicine; Visit Provider Internal Medicine | DX: I10 Essential (primary) hypertension (principal); E03.9 Hypothyroidism, unspecified; R73.01 Impaired fasting glucose; J45.50 Severe persistent asthma, uncomplicated; E88.09 Other disorders of plasma-protein metabolism, not elsewhere classified; M47.815 Spondylosis without myelopathy or radiculopathy, thoracolumbar region; I89.0 Lymphedema, not elsewhere classified; E66.01 Morbid (severe) obesity due to excess calories; Z68.43 Body mass index [BMI] 50.0-59.9, adult; Z79.899 Other long term (current) drug therapy; Z91.09 Other allergy status, other than to drugs and biological substances | CPT/HCPCS: 96127 ==

== ENCOUNTER 2024-05-19 10:13 | Outpatient (AMB) | payer OTHER, SELFPAY ==
[2024-05-19 10:15] VITALS: BP 111/58; PULSE 70; O2SAT 98; BMI 60.6
--- NOTE | 2024-05-19 10:15 | MHC.OFFVIS ---
Vital Signs 05/19/24 10:15 Height 6 ft Weight 447 lb BMI 60.6 BP 111/58 L Blood Pressure Location Lt radial Position Sitting Pulse 70 Pulse Source Doppler Pulse Oximetry (%) 98 Oxygen Delivery Method Room Air Comment Patient refused weight- verbal weight Intake Visit Reasons: copd Allergies No Known Allergies Allergy (Verified 05/19/24 10:22) HPI HPI copd: Details: 64-year-old gentleman, nonsmoker, followed for underlying environmental allergies and severe persistent allergic asthma.? He continues on Dupixent, Trelegy, Singulair, Flonase, and albuterol MDI/nebs with good control of his asthma and allergy symptoms.? He denies any recent exacerbations. Patient did have recent influenza from which he has recovered to baseline. 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 Kidney calculi Asthma Surgical History Hx of colonoscopy (~02/04/12) Family History Mother Congestive heart failure Father Lung cancer Social History Household Members: Spouse Housing: House Do you presently have visiting nurse or other home services: No Alcohol intake: current Alcohol intake frequency: does not drink Patient Tobacco Use Status: Never used Tobacco e-Cigarette/Vaping Use: Never Used Second Hand Smoke Exposure: Yes service: No Current occupational status: employed Current occupation: [employer] Current occupational exposures/hazards: No Cognitive needs: No Hearing needs: No Vision needs: No Review of Systems Const Denies daytime sleepiness, Denies excessive sweating, Denies fatigue, Denies fever(s), Denies lethargy, Denies malaise, Denies night sweats, Denies snoring and Denies weight loss Eyes Denies blurry vision and Denies itchy eyes ENT Denies nasal congestion, Denies post nasal drip, Denies sinus pain, Denies sinus pressure and Denies other ( Thrush) Card Denies chest pain, Denies pedal edema, Denies dyspnea, Denies orthopnea and Denies paroxysmal nocturnal dyspnea Resp Denies cough, Denies hemoptysis, Denies excessive phlegm production, Denies dyspnea, Denies snoring and Denies wheezing GI Denies abdominal pain and Denies heartburn Musc Denies myalgias, Denies arthralgias and Denies joint swelling Skin/Breast Denies rash Neuro Denies memory loss and Denies seizure-like activity Psych Denies abnormal sleep pattern, Denies anxiety and Denies memory loss Endo Denies excessive sweating, Denies fatigue and Denies heat intolerance Fabio/Lymph Denies easy bruising Aller/Immun Denies itchy eyes, Denies seasonal rhinorrhea and Denies wheezing Physical Exam Vital Signs: Last Vital Signs Pulse 70 05/19/24 10:15 BP 111/58 L 05/19/24 10:15 Pulse Ox 98 05/19/24 10:15 Oxygen Delivery Method Room Air 05/19/24 10:15 BMI result Body Mass Index 60.6 Const General: no acute distress and alert Nutritional Appearance: obese Orientation/consciousness: Other orientation findings ( oriented) HEENT Head: Yes atraumatic Eyes General: appearance normal, both eyes and all related structures Sclerae: sclerae normal EOM: EOMs intact bilaterally Neck Neck: Yes supple Lymphatic: no lymphadenopathy noted Resp Effort & Inspection: normal respiratory effort and no use of accessory muscles Auscultation: clear to auscultation bilaterally Cardio Rate: regular rate Rhythm: regular rhythm Heart sounds: no gallops, no murmurs and no rubs Skin General skin exam: other ( warm) Extrem General: No clubbing, No cyanosis and No edema Assessment & Plan Assessment & Plan (1) Severe persistent allergic asthma: Code(s): J45.50 - Severe persistent asthma, uncomplicated Category: Medical Plan: Well controlled on current regimen of Dupixent, Trelegy, and albuterol MDI/nebs. Continue current regimen. (2) Environmental allergies: Code(s): Z91.09 - Other allergy status, other than to drugs and biological substances Category: Medical Plan: Well controlled on Dupixent, Singulair, Zyrtec, and Flonase. Continue current regimen. Coding Level of Care Code Est Pt Level 4 (90214) Diagnoses Severe persistent allergic asthma J45.50 Environmental allergies Z91.09
== END 2024-05-19 10:32 | disposition home or self-care (01) ==
LOC: HO.HPS 10:13
PROVIDERS: PCP Internal Medicine; Visit Provider Internal Medicine Pulmonary Disease
DX: J45.50 Severe persistent asthma, uncomplicated (principal); Z91.09 Other allergy status, other than to drugs and biological substances
CPT/HCPCS: 99214

== ENCOUNTER → 2024-05-19 10:13 | Outpatient (BNVA) | payer OTHER, SELFPAY | PROVIDERS: PCP Internal Medicine; Visit Provider Internal Medicine Pulmonary Disease ==

== ENCOUNTER 2024-09-24 05:59 | Outpatient (REF) | payer OTHER, SELFPAY ==
[2024-09-24 06:20] LABS: MANUAL DIFF FLAG NO
[2024-09-24 07:49] LABS: Hematocrit 47.4 % (42.0-52.0); Hemoglobin 15.6 g/dl (14.0-18.0); Imm Gran Abs Auto 0.03 X10*3/uL (0.00-0.03); Imm Gran Pct Auto 0.4 % (0.0-0.4); Lymphocytes Absolute Auto 1.8 X10*3/uL (1.2-4.9); Mean Corpuscular HGB Conc 32.9 g/dl (31.0-36.0); Mean Corpuscular Hemoglobin 30.8 pg (27.0-33.0); Mean Corpuscular Volume 93.5 fL (80.0-98.0); NRBC Abs Auto 0.000 X10*3/uL (0.0-0.012); NRBC Pct Auto 0.0 /100WBC (0.0-0.2); Platelet Count 176 X10*3/uL (160-400); Red Blood Count 5.07 X10*6/uL (4.60-5.80); White Blood Count 7.2 X10*3/uL (4.8-10.8)
[2024-09-24 07:56] LABS: Hemoglobin A1C 184.3065 umol/L; Total Hemoglobin (HGBA1C) 4184.0899 umol/L
[2024-09-24 08:22] LABS: Appearance Urine Clear; Glucose Urine UA Negative (Negative); PH 5.5 (5.0-9.0); Specific Gravity - Urine 1.025 (1.005-1.025); UMIC TRIGGER UACC YES
[2024-09-24 08:56] LABS: Alanine Aminotransferase 12 U/L (0-40); Albumin Level 3.6 g/dL (3.5-5.0); Alkaline Phosphatase 84 U/L (39-117); Anion Gap 11 (12-20); Aspartate Amino Transferase 29 U/L (5-37); Blood Urea Nitrogen 16 mg/dL (9-16); Calcium 9.0 mg/dL (8.4-10.2); Carbon Dioxide 25 mmol/L (22-29); Chloride 106 mmol/L (96-108); Cholesterol 145 mg/dL (<200); Estimated Glomerular Filt Rate > 60; Free T4 (Free Thyroxine) 1.06 ng/dL (0.71-1.85); HDL Cholesterol 38 mg/dL (>40); Potassium 4.3 mmol/L (3.3-5.1); Sodium 138 mmol/L (135-145); Thyroid Stimulating Hormone 6.06 uIU/mL (0.32-4.0); Total Protein 7.9 g/dL (6.5-8.0); Triglycerides 112 mg/dL (<150)
[2024-09-24 09:00] LABS: Folate 6.8 ng/mL (> or = 4.0); Vitamin B12 282 pg/mL (200-900)
== END 2024-09-24 06:00 | disposition home or self-care (01) ==
LOC: HO.LAB 05:59
PROVIDERS: PCP Internal Medicine; Visit Provider Internal Medicine
DX: R73.01 Impaired fasting glucose (principal); E78.00 Pure hypercholesterolemia, unspecified; D64.9 Anemia, unspecified; E03.9 Hypothyroidism, unspecified; E55.9 Vitamin D deficiency, unspecified; E53.8 Deficiency of other specified B group vitamins; R30.0 Dysuria
CPT/HCPCS: 36415; 80053; 80061; 81001; 82306; 82607; 82746; 83036; 84439; 84443; 85025

== ENCOUNTER 2024-09-28 15:43 | Outpatient (AMB) | payer OTHER, SELFPAY ==
[2024-09-28 16:02] VITALS: BP 126/70; PULSE 70; RESP 18; TEMP 36.6; O2SAT 96
--- NOTE | 2024-09-28 16:02 | A.OFFPC_ITS ---
Vital Signs 09/28/24 16:02 Height 6 ft BMI Reason not done Patient refused/unable BP 126/70 Blood Pressure Location Lt radial Position Sitting Respiration 18 Pulse 70 Temp 98 F Temp Source Temporal Artery Scan Pulse Oximetry (%) 96 Oxygen Delivery Method Room Air Intake Visit Reasons: HTN, hypothyroidism, hyperproteinemia, asthma Seconds Handler Required: No Accompanied by: Self / Same As Patient Allergies No Known Allergies Allergy (Verified 10/05/24 14:17) Medication List - Last Reconciled 09/28/24 by CHAVA Porter albuterol sulfate 2.5 mg continuous nebulization Q6H PRN albuterol sulfate 90 mcg/actuation 2 puffs inhalation Q4-6H PRN 30 days amlodipine 5 mg PO DAILY cholecalciferol (vitamin D3) 50 mcg PO DAILY 90 days dupilumab (Dupixent) 300 mg subcut Q2W fluticasone propionate 50 mcg/actuation (Flonase Allergy Relief) 1 spray intranasal BID 30 days furosemide 20 mg PO QAM PRN 30 days levothyroxine 75 mcg PO DAILY 90 days montelukast 10 mg PO BEDTIME oxycodone 5 mg PO BID PRN 7 days Trelegy Ellipta 200-62.5-25 mcg (aczeiigxnaq-umjqfhvfy-xmhpvuvt) 1 ea PO DAILY NS Tobacco use date assessed: 01/31/24 Fall risk assessment: 1 Fall in past year Last assessed Fall Risk: 09/28/24 Dental Screening Dental Screen Date: 09/28/24 Did you have a dental visit in the last 12 months?: Yes Did you have a dental problem in the last 6 months where you did not have access to dental care?: No Was dental information given to patient?: Patient has dentist HPI HTN, hypothyroidism, hyperproteinemia, asthma HPI Details The patient is a 64-year-old male presenting with concerns regarding elevated Hemoglobin A1c and insomnia. The patient's Hemoglobin A1c has increased to 6.2% from 5.0%, indicating a rise in blood glucose levels. He acknowledges the need to return to a proper diet to manage this condition. Explained to the patient that his A1c is still within goal. The patient reports improvements in his cholesterol levels, with a decrease in LDL cholesterol, although HDL cholesterol has also decreased slightly. He is not currently taking fish oil or CoQ10, which were suggested to help improve his lipid profile. Urinalysis revealed a small amount of protein and blood, with no bacterial growth noted. The patient experiences significant stress due to his daughter's illness and job uncertainties, contributing to his insomnia. He has tried various jcga-wqy-bqqsxea sleep aids, including Advil PM, Tylenol PM, and melatonin, without success. 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 The patient has a history of spinal stenosis and reports sore knees, although these are not currently debilitating. 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 Kidney calculi Asthma Surgical History Hx of colonoscopy (~02/04/12) Family History Mother Congestive heart failure Father Lung cancer Social History Household Members: Spouse Housing: House Do you presently have visiting nurse or other home services: No Alcohol intake: current Alcohol intake frequency: does not drink Patient Tobacco Use Status: Never used Tobacco e-Cigarette/Vaping Use: Never Used Second Hand Smoke Exposure: Yes service: No Current occupational status: employed Current occupation: common [employer] Current occupational exposures/hazards: No Cognitive needs: No Hearing needs: No Vision needs: No Questionnaire PHQ-9 Over the last 2 weeks, how often have you been bothered by any of the following problems? 1. Little interest or pleasure in doing things: not at all 2. Feeling down, depressed, or hopeless: not at all 3. Trouble falling or staying asleep, or sleeping too much: more than half the days 4. Feeling tired or having little energy: more than half the days 5. Poor appetite or overeating: more than half the days 6. Feeling bad about yourself - or that you are a failure or have let yourself or your family down: not at all 7. Trouble concentrating on things, such as reading the newspaper or watching television: not at all 8. Moving or speaking so slowly that other people could have noticed. Or the opposite - being so fidgety or restless that you have been moving around a lot more than usual: not at all 9. Thoughts that you would be better off or of hurting yourself in some way: not at all Total score: 6 Source: Developed by Drs. Chon Wilson, Shawna Tijerina, Juan Judge and colleagues, with an educational abi from Editor[employer]. Thrive Questionnaire Date Thrive assessed: 09/28/24 I am a: Patient What is your living situation today?: I have a steady place to live Within the past 12 months, did the food you bought not last and you didn't have the money to get more?: Never true Within the past 12 months, did you worry whether your food would run out before you got money to buy more?: Never true Do you have trouble paying for medicines?: No Do you have trouble getting transportation to medical appointments?: No Do you have trouble paying your heating and electricity bill?: No Do you have trouble taking care of your child, family member or friend?: I choose not to answer this question Do you have trouble with day-to-day activities such as bathing, preparing meals, shopping, managing finances, etc.?: No Are you currently unemployed and looking for a job?: No Are you interested in more education?: No Please select the resources that you would like help with: None Currently or been in a relationship where the following occur: No concerns reported THRIVE Score: 0 AUDIT C Alcohol Use Questionnaire (AUDIT-C) 1. How often do you have a drink containing alcohol?: 2-3 times a week 2. How many drinks containing alcohol do you have on a typical day when you are drinking?: 1 or 2 3. How often do you have six or more drinks on one occasion?: Never Total Score: 3 MARILEE-7 AMB Questionnaire MARILEE-7 Date MARILEE - 7 assessed: 09/28/24 Feeling nervous, anxious, or on edge: 0 = Not at all Not being able to stop or control worryin = Not at all Worrying too much about different things: 0 = Not at all Trouble relaxin = Not at all Being so restless that it is hard to sit still: 0 = Not at all Becoming easily annoyed or irritable: 1 = Several days Feeling afraid as if something awful might happen: 0 = Not at all Total MARILEE-7 score (0-4 normal; 5-9 mild; 10-14 moderate; 15-21 severe): 1 Source: Developed by Drs. Chon Wilson, Shawna Tijerina, Juan Judge and colleagues, with an educational abi from Editorially. Review of Systems Const Denies body aches, Denies chills, Reports difficulty sleeping, Denies fever(s), Denies headache(s) and Denies poor appetite Eyes Reports no additional complaints ENT Denies dysphagia, Denies dizziness, Denies headache(s) and Denies odynophagia Card Denies chest pain, Denies syncope, Denies edema, Denies irregular heart rhythm, Denies lightheadedness and Denies dyspnea Resp Denies cough and Denies dyspnea GI Denies abdominal pain, Denies constipation, Denies dysphagia, Denies diarrhea, Denies nausea, Denies odynophagia and Denies vomiting Reports no additional complaints Musc Reports back pain (Lower back) and Reports arthralgias (Bilateral knees) Skin/Breast Reports system reviewed and no additional complaints, except as documented Neuro Denies dizziness, Denies syncope and Denies headache(s) Psych Reports other (Increased stress due to 16-year-old daughter illness) Physical exam (Primary Care) Vital Signs: Last Vital Signs Temp 98 F 09/28/24 16:02 Pulse 70 09/28/24 16:02 Resp 18 09/28/24 16:02 BP 126/70 09/28/24 16:02 Pulse Ox 96 09/28/24 16:02 Oxygen Delivery Method Room Air 09/28/24 16:02 Tobacco/Smoking Status: Tobacco use Status Tobacco use date assessed 01/31/24 09/28/24 16:13 Patient Tobacco Use Status Never used Tobacco 09/28/24 16:13 e-Cigarette/Vaping Use Never Used 09/28/24 16:13 PHQ-9: PHQ-9 Score PHQ-9: Total score 6 09/28/24 16:35 Thrive Assessment: Date of Thrive Assessment Date Thrive assessed 09/28/24 09/28/24 16:13 Currently or been in a relationship where the following occur: No concerns reported Const General: cooperative, healthy appearing, comfortable and no acute distress Orientation/consciousness: patient oriented x3 HENMT Head: Yes normocephalic Ears: hearing grossly normal bilaterally General nose exam: Normal external nose present Eyes General: appearance normal, both eyes and all related structures Conjunctivae: conjunctivae normal Neck Neck: Yes full ROM and Yes no lymphadenopathy Resp Effort & Inspection: normal respiratory effort Auscultation: clear to auscultation bilaterally, no crackles, no rales, no rhonchi and no wheezes Cardio Rate: regular rate Rhythm: regular rhythm Back/Spine/Pelvis Thoracic/Lumbar Spine: lumbar spinal tenderness Skin General skin exam: no rashes or lesions noted Neuro General: patient oriented x3 Gait exam (Neuro): Normal gait present Extrem General: Yes full ROM Right lower extremity: knee Details: no tenderness and no swelling Left lower extremity: knee Details: no tenderness and no swelling Psych Affect: normal affect Attitude: cooperative Insight: Good insight present (Psych) Judgement: Good judgement present (Psych) Results Reviewed Results Reviewed: Laboratory Tests 09/24/24 09/24/24 06:19 06:20 WBC 7.2 RBC 5.07 Hgb 15.6 Hct 47.4 MCV 93.5 MCH 30.8 MCHC 32.9 RDW 13.6 Plt Count 176 Sodium 138 Potassium 4.3 Chloride 106 Carbon Dioxide 25 Anion Gap 11 L BUN 16 Creatinine 0.92 Estim Creat Clear Calc Not Reportable Estimated GFR > 60 Fasting Glucose 121 H Estimat Average Glucose 131 Hemoglobin A1c % 6.2 H Calcium 9.0 D Total Bilirubin 1.8 H AST 29 ALT 12 Alkaline Phosphatase 84 Total Protein 7.9 Albumin 3.6 Triglycerides 112 Cholesterol 145 LDL Cholesterol, Calc 85 HDL Cholesterol 38 L Vitamin B12 282 25-OH Vitamin D Total 35.6 Folate 6.8 TSH 6.06 H Free T4 1.06 Urine Color Dark Yellow Urine Appearance Clear Urine pH 5.5 Ur Specific [place] 1.025 Urine Protein 30 (1+) H Urine Glucose (UA) Negative Urine Ketones Trace Urine Blood Small (1+) H Urine Nitrite Negative Ur Leukocyte Esterase Trace H Urine RBC 0-2 Urine WBC 0-5 Ur Squamous Epith Cells 0-2 Urine Bacteria None Seen Hyaline Casts 3-5 Coding Level of Care Code Est Pt Level 4 (53782) Diagnoses Benign essential hypertension I10 Acquired hypothyroidism E03.9 Impaired fasting glucose R73.01 Severe persistent allergic asthma J45.50 Multiple environmental allergies Z91.09 Hyperproteinemia E88.09 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 Insomnia, unspecified type G47.00 Insomnia type: unspecified Time Spent (min) 41 Assessment & Plan Assessment & Plan (1) Benign essential hypertension: Code(s): I10 - Essential (primary) hypertension Category: Medical Plan: Blood pressure 126/70, systolic goal less than 140 mm Hg Reinforced low sodium diet Continue Amlodipine 5 mg QD Continue monitoring blood pressure (2) Acquired hypothyroidism: Code(s): E03.9 - Hypothyroidism, unspecified Category: Medical Plan: TSH is elevated at 6 .06 and free T4 is within normal limits at 1.06 Continue levothyroxine 75 mcg daily We will continue to monitor TFTs q.6 months (3) Impaired fasting glucose: Code(s): R73.01 - Impaired fasting glucose Category: Medical Plan: Patient A1c 6.2%, he is concerned that it increased from 5%. Explained to the patient that his A1c is still within goal; however, he should be close attention to his diet to lower his sugar and carbohydrate intake. We will continue to monitor fasting glucose and A1c (4) Severe persistent allergic asthma: Code(s): J45.50 - Severe persistent asthma, uncomplicated Category: Medical Plan: Continue Trelegy Ellipta 1 inhalation QD, Singulair 10 mg QD and Albuterol MDI 2 puffs 4 times a day as needed Continue Dupixent injections every 2 weeks Patient states that his asthma has been much better controlled since starting on Dupixent injections last year Follow-up with [facility] as scheduled (5) Multiple environmental allergies: Code(s): Z91.09 - Other allergy status, other than to drugs and biological substances Category: Medical Plan: Patient states that his allergies have also been much better controlled on Dupixent Continue Dupixent injections 300 mg SQ every [address] up [address] Deniz Ellis as scheduled (6) Hyperproteinemia: Code(s): E88.09 - Other disorders of plasma-protein metabolism, not elsewhere classified Category: Medical Plan: Patient was noticed to have persistent elevation of his serum protein level over the past couple of years Hyperproteinemia work ups have all been negative so far He was referred to Dr. 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: Code(s): M47.815 - Spondylosis without myelopathy or radiculopathy, thoracolumbar region Category: Medical Plan: Reinforced activity and weight-lifting restrictions to avoid aggravating his low back pain Per request, will refill his Rx for Oxycodone 5 mg - states that he takes this only as needed, mostly just at bedtime, for severe low back pain (8) Lymphedema: Code(s): I89.0 - Lymphedema, not elsewhere classified Category: Medical Plan: Continue Furosemide 20 mg Q AM PRN for increased swelling of his lower legs and feet (9) Morbid obesity with BMI of 50.0-59.9, adult: Code(s): E66.01 - Morbid (severe) obesity due to excess calories; Z68.43 - Body mass index [BMI] 50.0-59.9, adult Category: Medical Plan: Reinforced diet/exercise as tolerated/lose weight (10) Insomnia: Code(s): G47.00 - Insomnia, unspecified Category: Medical Qualifiers: Insomnia type: unspecified Qualified Code(s): G47.00 - Insomnia, unspecified Plan: Patient reports increase stress due to daughter being diagnosed with a endometriosis and needing to be in the hospital for other complications. Reports that he has been having difficulty sleeping. He has tried multiple etud-iir-muurooc regimens without any success. Trazodone 50 mg at bedtime p.r.n. ordered Plan Follow up in 6 months Orders: Orders Complete Blood Count Auto Diff 6 Months Z91.09 - Other allergy status, other than to drugs and biological substances, I10 - Essential (primary) hypertension, R73.01 - Impaired fasting glucose, E03.9 - Hypothyroidism, unspecified, E66.01 - Morbid (severe) obesity due to excess calories, Z68.44 - Body mass index [BMI] 60.0-69.9, adult, E55.9 - Vitamin D deficiency, unspecified, M47.815 - Spondylosis without myelopathy or radiculopathy, thoracolumbar region, I89.0 - Lymphedema, not elsewhere classified Comprehensive [place]. Panel Fast 6 Months Z91.09 - Other allergy status, other than to drugs and biological substances, I10 - Essential (primary) hypertension, R73.01 - Impaired fasting glucose, E03.9 - Hypothyroidism, unspecified, E66.01 - Morbid (severe) obesity due to excess calories, Z68.44 - Body mass index [BMI] 60.0-69.9, adult, E55.9 - Vitamin D deficiency, unspecified, M47.815 - Spondylosis without myelopathy or radiculopathy, thoracolumbar region, I89.0 - Lymphedema, not elsewhere classified Lipid Panel 6 Months Z91.09 - Other allergy status, other than to drugs and biological substances, I10 - Essential (primary) hypertension, R73.01 - Impaired fasting glucose, E03.9 - Hypothyroidism, unspecified, E66.01 - Morbid (severe) obesity due to excess calories, Z68.44 - Body mass index [BMI] 60.0-69.9, adult, E55.9 - Vitamin D deficiency, unspecified, M47.815 - Spondylosis without myelopathy or radiculopathy, thoracolumbar region, I89.0 - Lymphedema, not elsewhere classified TSH reflex Free T4 6 Months Z91.09 - Other allergy status, other than to drugs and biological substances, I10 - Essential (primary) hypertension, R73.01 - Impaired fasting glucose, E03.9 - Hypothyroidism, unspecified, E66.01 - Morbid (severe) obesity due to excess calories, Z68.44 - Body mass index [BMI] 60.0- 69.9, adult, E55.9 - Vitamin D deficiency, unspecified, M47.815 - Spondylosis without myelopathy or radiculopathy, thoracolumbar region, I89.0 - Lymphedema, not elsewhere classified UA CC w/rflx Micro + Cult 6 Months Z91.09 - Other allergy status, other than to drugs and biological substances, I10 - Essential (primary) hypertension, R73.01 - Impaired fasting glucose, E03.9 - Hypothyroidism, unspecified, E66.01 - Morbid (severe) obesity due to excess calories, Z68.44 - Body mass index [BMI] 60.0-69.9, adult, E55.9 - Vitamin D deficiency, unspecified, M47.815 - Spondylosis without myelopathy or radiculopathy, thoracolumbar region, I89.0 - Lymphedema, not elsewhere classified Vitamin D 25-OH Total 6 Months Z91.09 - Other allergy status, other than to drugs and biological substances, I10 - Essential (primary) hypertension, R73.01 - Impaired fasting glucose, E03.9 - Hypothyroidism, unspecified, E66.01 - Morbid (severe) obesity due to excess calories, Z68.44 - Body mass index [BMI] 60.0- 69.9, adult, E55.9 - Vitamin D deficiency, unspecified, M47.815 - Spondylosis without myelopathy or radiculopathy, thoracolumbar region, I89.0 - Lymphedema, not elsewhere classified Hemoglobin A1c 6 Months Z91.09 - Other allergy status, other than to drugs and biological substances, I10 - Essential (primary) hypertension, R73.01 - Impaired fasting glucose, E03.9 - Hypothyroidism, unspecified, E66.01 - Morbid (severe) obesity due to excess calories, Z68.44 - Body mass index [BMI] 60.0-69.9, adult, E55.9 - Vitamin D deficiency, unspecified, M47.815 - Spondylosis without myelopathy or radiculopathy, thoracolumbar region, I89.0 - Lymphedema, not elsewhere classified Medications: New trazodone 50 mg PO BEDTIME PRN 60 tabs 2RF sleep Refilled oxycodone Take as needed only for severe pain 5 mg PO BID PRN 14 tabs 0RF pain 7 days
== END 2024-09-28 16:47 | disposition home or self-care (01) ==
LOC: HO.HMCH 15:44
PROVIDERS: PCP Internal Medicine
DX: I10 Essential (primary) hypertension (principal); J45.50 Severe persistent asthma, uncomplicated; E66.01 Morbid (severe) obesity due to excess calories; Z68.43 Body mass index [BMI] 50.0-59.9, adult; E03.9 Hypothyroidism, unspecified; R73.01 Impaired fasting glucose; Z91.09 Other allergy status, other than to drugs and biological substances; E88.09 Other disorders of plasma-protein metabolism, not elsewhere classified; M47.815 Spondylosis without myelopathy or radiculopathy, thoracolumbar region; I89.0 Lymphedema, not elsewhere classified; G47.00 Insomnia, unspecified

== ENCOUNTER 2024-11-09 13:32 | Inpatient (IN) | payer OTHER, SELFPAY ==
[2024-11-09 13:40] VITALS: BP 157/67; PULSE 76; RESP 18; TEMP 36.2; O2SAT 97; BMI 63.6
--- NOTE | 2024-11-09 13:40 | ED.GENADULT ---
HPI - General Adult General Chief complaint: Stroke Stated complaint: R sided facial numbness, feels weird, dizzy Time Seen by Provider: 11/09/24 14:11 Source: patient Mode of arrival: ambulatory Limitations: no limitations History of Present Illness ED Provider: DR. Cardoza HPI narrative: a 64-year-old male came in for evaluation of right facial weakness 1st noticed yesterday around noon time when patient could not fully close his right eye as tight as the left eye, patient otherwise declined slurred speech, no weakness, no loss of sensation in the body, patient night before drank 7 shots of alcohol and patient attributed his symptoms to possibility of hanging over after drinking too much the night before. Patient still feels right facial weakness, no slurred speech, no weakness, no numbness, walking unsteady gait. Related Data Home Medications ?Medication ?Instructions ?Recorded ?Confirmed dupilumab 300 mg/2 mL subcutaneous 300 mg subcut Q2W 06/19/21 11/09/24 pen injector ([employer] BiosystemsixLeversense) cetirizine 10 mg tablet 10 mg PO DAILY 11/09/24 11/09/24 furosemide 20 mg tablet 20 mg PO DAILY PRN edema 11/09/24 11/09/24 levothyroxine 75 mcg tablet 75 mcg PO DAILY@0600 11/09/24 11/09/24 Previous Rx's ?Medication ?Instructions ?Recorded Trelegy Ellipta 200 mcg-62.5 1 ea PO DAILY #60 ea 06/09/24 mcg-25 mcg powder for inhalation ([id number]) cholecalciferol (vitamin D3) 50 50 mcg PO DAILY 90 days #90 caps 07/09/24 mcg (2,000 unit) capsule amlodipine 5 mg tablet 5 mg PO DAILY #90 tabs 08/08/24 montelukast 10 mg tablet 10 mg PO BEDTIME #30 tabs 10/12/24 Allergies Allergy/AdvReac Type Severity Reaction Status Date / Time No Known Allergies Allergy Verified 11/09/24 13:47 Review of Systems Review of Systems: All other systems are reviewed and are negative Constitutional: Reports as per HPI and Reports no additional constitutional complaints Eyes: Reports as per HPI and Reports no additional eye complaints Reports system reviewed and no additional complaints, except as documented Cardiovascular: Reports as per HPI and Reports no additional cardiovascular complaints Respiratory: Reports as per HPI and Reports no additional respiratory complaints Gastrointestinal: Reports as per HPI and Reports no additional gastrointestinal complaints Genitourinary: Reports no additional female genitourinary complaints Musculoskeletal: Reports no additional musculoskeletal complaints Skin/Breast: Reports system reviewed and no additional complaints, except as docu Psychiatric: Reports no additional psychiatric complaints Endocrine: Reports no additional endocrine complaints Hematologic/Lymphatic: Reports no additional hematologic/lymphatic complaints Allergic/Immunologic: Reports no additional allergic/immunologic complaints Reports system reviewed and no additional complaints, except as documented and Reports Abnormal speech present [facility] Past Medical History Medical History Impaired fasting glucose Lymphedema Acquired hypothyroidism Vitamin D deficiency Multiple environmental allergies Benign essential hypertension Morbid obesity with BMI of 60.0-69.9, adult 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 Kidney calculi Asthma Surgical History Hx of colonoscopy (~02/04/12) Family History Family History Mother Congestive heart failure Father Lung cancer Social History Social History Household Members: Spouse Housing: House Do you presently have visiting nurse or other home services: No Alcohol intake: current Alcohol intake frequency: does not drink Patient Tobacco Use Status: Never used Tobacco Smoked in Last 30 Days: No e-Cigarette/Vaping Use: Never Used Second Hand Smoke Exposure: Yes Use of substances other than those prescribed or required for medical reasons: No Advance Directives: No Advance Directives Information Provided: Yes Do you have a plan to hurt others: No Plan service: No Current occupational status: employed Current occupation: [employer] Current occupational exposures/hazards: No Cognitive needs: No Hearing needs: No Vision needs: No Physical Exam ED Vital Signs: Vital Signs - 24 hr 11/09/24 13:40 11/09/24 14:00 Temperature 97.2 F 97.8 F Pulse Rate 76 70 Respiratory Rate 18 17 Blood Pressure 157/67 H 147/54 H Pulse Oximetry 97 97 Oxygen Delivery Method Room Air Room Air BMI result Body Mass Index 63.6 Vital signs have been reviewed and appear to be correct. Blood pressure elevated. Heart rate normal. Respiratory rate normal. Temperature normal. Oxygen saturation normal. Appearance: Alert. Oriented X3. No acute distress. Head: Normal external exam. Normocephalic. Atraumatic. No Keith signs noted. No raccoon eyes noted Eyes: PERRLA. EOMI. Conjunctiva and sclera normal. Eyelids normal. ENT: TM's Normal. Pharynx normal. Uvula midline. Moist mucous membranes. No trismus noted. No drooling noted. No muffled voice noted. Neck: Normal inspection. Neck supple. FROM. No adenopathy. Thyroid Normal. No meningeal signs. No neck mass noted. CVS: Normal heart rate and rhythm. Heart sound normal. No murmurs noted. Pulses normal throughout. Respiratory: No respiratory distress. Painless inspiration. Breath sounds normal. No wheezes/rales/rhonchi noted. Chest nontender. No accessory muscle usage noted or decreased air movement noted. Abdomen: Soft and nontender. Bowel sounds normal in all 4 quadrants. No distention noted. No organomegaly noted. No visible injury noted. Back: No CVA tenderness. Full range of motion noted. Skin: Skin warm and dry. Normal skin color. Normal skin turgor. No rashes/lesions/lacerations noted. Extremities: No lower extremity edema. Extremities exhibit normal range of motion. Extremities nontender. Neuro: Mental status: Normal attention, orientation, memory, and affect. Cranial nerves: Pupils are equal, round and reactive to light, EOMI, visual jean-baptiste are fall, Mild right facial weakness, facial sensations are normal. Motor examination normal muscle tone, strength to 4 extremities. DTR are +2, planter's are flexor. Sensory exam; normal coordination, no ataxia, gait stable. Cerebellar exam: Sfsffr-yx-[id number] and qjbu-iy-vnun is normal. Extrapyramidal system: No tremors, no rigidity with normal facial expressions. Pronator drift not present. NIH Stroke Scale Time: 14:29 Level of Consciousness: Alert Level of Consciousness Questions: Answers both questions correctly Level of Consciousness Commands: Performs both tasks correctly Best Gaze: Normal Visual: No visual loss Facial Palsy: Minor paralyis Motor Arm (Right): No drift Motor Arm (Left): No drift Motor Leg (Right): No drift Motor Leg (Left): No drift Limb Ataxia: Absent Sensory: Normal Best Language: No aphasia Dysarthia: Normal Extinction and Inattention: No abnormality Score: 1 Course Course Course Narrative: This is a Rapid Medical Examination (RME) performed by Mary Sam PA-C in triage. Full HPI, ROS, assessment and treatment plan per primary provider in the Main ED. Hx: 64 yo M hx HTN here or eval of inability to close right eye since yesterday around 1400. reports feeling generally unwell over the last few days. repotrs consuming etoh 2 days ago multiple shots had a fall witnessed by however denies head strike. no thinners. PE/vitals: right facial droop, slurred speech, right eyelid lag. no forehead paralysis. no other focal deficits. Plan: discussed w/ attending dr. cardoza. stroke protocol ordered along with MR brain. patient brought back to room at 1348. Reevaluation(s) Reevaluation #1: atrial fibrillation patient not known to have history of assuming is a new onset atrial fibrillation rate controlled, came in with right facial droop times [address]/CT angio of the head and neck, patient is not a candidate for thrombolysis or mechanical thrombectomy, attempts to obtain MRI in the ED was unsuccessful secondary to patient's body habitus, therefore neurology consultation was granted Dr. Quiñonez evaluated the patient and recommended to start the patient on Eliquis for anticoagulation and admit him for further neurological evaluation. 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 Time: 16:53 Medications Administered Discontinued Medications Generic Name Dose Route Start Last Admin Trade Name Freq PRN Reason Stop Dose Admin Apixaban 5 mg 11/09/24 16:50 11/09/24 17:13 Apixaban 5 Mg Tablet PO 11/09/24 16:51 5 mg ONCE ONE Administration Iohexol 100 ml 11/09/24 14:42 11/09/24 14:43 Iohexol 350 Mg/Ml 100 Ml Infus..Btl IV 11/09/24 14:43 70 ml ONCE ONE Administration Medical Decision Making Differential Diagnosis Differential Diagnoses: The differential diagnosis associated with the presentation includes ( Ischemic CVA, hemorrhagic CVA, cardiac arrhythmia, ACS, electrolyte derangement, severe anemia, Ocampo's palsy.) Admission/Observation Consideration of admission/observation: Escalation of care including admission/observation considered Lab Data MDM Lab Attestation statement: I reviewed the patient's lab results. 11/09/24 13:58 11/09/24 13:58 Labs: Lab Results 11/09/24 11/09/24 11/09/24 Range/Units 13:58 14:19 14:20 WBC 6.1 (4.8-10.8) X10*3/uL RBC 5.48 (4.60-5.80) X10*6/uL Hgb 16.8 (14.0-18.0) g/dl Hct 49.0 (42.0-52.0) % MCV 89.4 (80.0-98.0) fL MCH 30.7 (27.0-33.0) pg MCHC 34.3 (31.0-36.0) g/dl RDW 13.8 (11.0-16.0) % Plt Count 165 (160-400) X10*3/uL MPV 10.7 (9.4-12.4) fL Immature Gran % (Auto) 0.3 (0.0-0.4) % Neut % (Auto) 53.3 (45-73) % Lymph % (Auto) 26.3 (20-40) % [place] % (Auto) 11.3 H (2-11) % Eos % (Auto) 7.5 H (0-4) % Baso % (Auto) 1.3 (0-2) % Lymph # (Auto) 1.6 (1.2-4.9) X10*3/uL [place] # (Auto) 0.7 (0.1-1.2) X10*3/uL Eos # (Auto) 0.5 H (0.0-0.4) X10*3/uL Baso # (Auto) 0.1 (0.0-0.2) X10*3/uL Abs Immat Gran (auto) 0.02 (0.00-0.03) X10*3/uL Absolute Neuts (auto) 3.3 (2.0-8.3) x10*3/uL Absolute Nucleated RBC 0.000 (0.0-0.012) X10*3/uL Nucleated RBC % (auto) 0.0 (0.0-0.2) /100WBC PT 12.2 (10.9-12.4) SEC Whole Blood PT 12.8 (11.1-13.5) sec INR 1.1 (0.9-1.1) Whole Blood INR 1.1 (0.9-1.1) APTT 27.0 (26.7-34.1) SEC Sodium 139 (135-145) mmol/L Potassium 3.8 D (3.3-5.1) mmol/L Chloride 108 (96-108) mmol/L Carbon Dioxide 24 (22-29) mmol/L Anion Gap 11 L (12-20) BUN 15 (9-16) mg/dL Creatinine 0.78 (0.5-1.4) mg/dL Estim Creat Clear Calc 178.1 Estimated GFR > 60 POC Glucose 131 H (60-115) mg/dL Random Glucose 124 H (60-115) mg/dL Calcium 9.0 (8.4-10.2) mg/dL Troponin I High Sens 7.3 (<3.5-35.0) ng/L Triglycerides 122 (<150) mg/dL Cholesterol 133 (<200) mg/dL LDL Cholesterol, Calc 76 (<100) mg/dL HDL Cholesterol 33 L (>40) mg/dL Independent Interpretation I performed an independent interpretation of an: CT Scan ( Head CT: Unremarkable head CT. CTA no massive vascular obstruction.) Radiology Impression Discussion of test interpretation with radiology: I have reviewed the radiologist's reading. Critical Care Time Critical Care Time Critical Care Time: Yes Total Critical Care Time: 60 Attestation: The patient was critically ill with a high probability of imminent or life-threatening deterioration. I spent greater than 30 minutes of discontinuous time evaluating the patient, delivering critical care at the bedside, discussing evaluating data with consultants. Critical care time does not include time spent performing separately billable procedures or teaching. Time spent performing critical care was 60 minutes. Discharge Plan Discharge Clinical Impression: Weakness on right side of face, New onset a-fib Patient Disposition: Admitted As Inpatient
--- NOTE | 2024-11-09 13:43 | ECG_ITS ---
Test Reason : STROKE ? Blood Pressure : */* mmHG Vent. Rate : 67 BPM Atrial Rate : * BPM P-R Int : * ms QRS Dur : 124 ms QT Int : 418 ms P-R-T Axes : * -54 85 degrees QTcB Int : 441 ms Atrial fibrillation Left anterior fascicular block Left ventricular hypertrophy with QRS widening ( R in aVL , Nicolaus product ) Possible Lateral infarct , age undetermined Abnormal ECG When compared with ECG of 01-Jul-2020 20:43, Atrial fibrillation has replaced Sinus rhythm Borderline criteria for Lateral infarct are now Present Referred By: Ela Sam Electronically Signed By: Aristides Camp
[2024-11-09 14:00] VITALS: BP 147/54; PULSE 70; RESP 17; TEMP 36.6; O2SAT 97
[2024-11-09 14:01] LABS: MANUAL DIFF FLAG NO
[2024-11-09 14:03] LABS: Hematocrit 49.0 % (42.0-52.0); Hemoglobin 16.8 g/dl (14.0-18.0); Imm Gran Abs Auto 0.02 X10*3/uL (0.00-0.03); Imm Gran Pct Auto 0.3 % (0.0-0.4); Lymphocytes Absolute Auto 1.6 X10*3/uL (1.2-4.9); Mean Corpuscular HGB Conc 34.3 g/dl (31.0-36.0); Mean Corpuscular Hemoglobin 30.7 pg (27.0-33.0); Mean Corpuscular Volume 89.4 fL (80.0-98.0); NRBC Abs Auto 0.000 X10*3/uL (0.0-0.012); NRBC Pct Auto 0.0 /100WBC (0.0-0.2); Platelet Count 165 X10*3/uL (160-400); Red Blood Count 5.48 X10*6/uL (4.60-5.80); White Blood Count 6.1 X10*3/uL (4.8-10.8)
[2024-11-09 14:13] LABS: INTERNATIONAL NORM RATIO 1.1 (0.9-1.1); Prothrombin Time 12.2 SEC (10.9-12.4)
--- NOTE | 2024-11-09 14:14 | PC.NURSE ---
Addendum entered by Lillie James RN 11/09/24 14:16: Patient presents with inability to close right eye as well as left eye since yesterday at approximately 1400 to 1500. Patient states went to work yesterday prior to the symptoms. Also states has not drank in approximately 6 months but drank 7-8 shots on Saturday. MEG. Tongue midline. No droop. Sensation equal. Moves all extremities spontaneously, equally and purposefully. No drift noted. Morbidly obese. monitoring and evaluation advisor applied and shows NSR. Lungs clear bilat. Respirations even and non-labored. Abdomen large, soft, non-tender with positive bowel sounds. Positive pedal pulses with LE edema noted. Transferred to CT/CTA. Post CT transferred to MRI. 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
[2024-11-09 14:15] LABS: Partial Thromboplastin Time 27.0 SEC (26.7-34.1)
--- NOTE | 2024-11-09 14:15 | PC.NURSE ---
Patient presents with inability to close right eye as well as left eye since yesterday at approximately 1400 to 1500. Patient states went to work yesterday prior to the symptoms. Also states has not drank in approximately 6 months but drank 7-8 shots on Saturday. MEG. Tongue midline. No droop. Sensation equal. Moves all extremities spontaneously, equally and purposefully. No drift noted. Morbidly obese. monitoring and evaluation advisor applied and shows Afib. Lungs clear bilat. Respirations even and non-labored. Abdomen large, soft, non-tender with positive bowel sounds. Positive pedal pulses with LE edema noted. Transferred to CT/CTA. Post CT transferred to MRI. 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
[2024-11-09 14:17] LABS: Stroke Lab Use COMPLETE
[2024-11-09 14:18] LABS: Anion Gap 11 (12-20); Blood Urea Nitrogen 15 mg/dL (9-16); Calcium 9.0 mg/dL (8.4-10.2); Carbon Dioxide 24 mmol/L (22-29); Chloride 108 mmol/L (96-108); Cholesterol 133 mg/dL (<200); Creatinine Clr Calc Pharmacy 178.1; Estimated Glomerular Filt Rate > 60; HDL Cholesterol 33 mg/dL (>40); Potassium 3.8 mmol/L (3.3-5.1); Sodium 139 mmol/L (135-145); Triglycerides 122 mg/dL (<150)
[2024-11-09 14:22] LABS: Troponin-I High Sensitivity 7.3 ng/L (<3.5-35.0)
[2024-11-09 14:24] LABS: Prothrombin Time Whole Bld POC 12.8 sec (11.1-13.5); ~PT, ~INR - Anti Coag Clinic 1.1 (0.9-1.1)
[2024-11-09 14:25] LABS: Glucose, Whole Blood 131 mg/dL (60-115)
[2024-11-09] MEDS: iohexoL 350 MG/ML 100 ML INFUS..BTL IV (14:43)
--- NOTE | 2024-11-09 15:45 | PC.NURSE ---
Sent back to MRI
--- NOTE | 2024-11-09 16:01 | MHC.EDTECH ---
time- 1549 outgoing call to neuro. No answer time- 1550,outgoing call to neuro. No answer time- 1351 no answer
--- NOTE | 2024-11-09 16:18 | MHC.STROKE ---
Notified of potential stroke in ED Pt in CT scan upon my arrival. LKWT was 2 pm yesterday. Pt reports he couldn't close his R eyelid very tight and his felt as though he had a small right sided droop. CT scans completed. Attempted to get MRI however patient was unable to tolerate MRI machine. He was also unable to safely fit in machine. Dr. Quiñonez to bedside for evaluation. At first he felt that this could be Ocampo's Palsy however we were informed by ED provider that patient was in AFib on his EKG. Plan is for admission to hospital Stroke Education provided to and patient. Risk factors discussed including medical hx, medications, social hx, diet/activity. Pamphlet provided. All questions answered. Will continue to assist as needed.
--- NOTE | 2024-11-09 16:36 | P.CNNE_ITS ---
History of Present Illness Data of Consult Service Date: 11/09/24 Primary Care Provider: Harshad Horn MD HPI Reason for consult: Stroke 64 years old morbidly obese man with past medical history of controlled hypertension came to hospital with new onset of right-sided facial weakness. There was no headache recent cold or flu-like illness and no change in his hearing or ear symptom. There was no change in his speech. No focal weakness was noted. 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 Kidney calculi Asthma Family History Family History Mother Congestive heart failure Father Lung cancer Surgical History Surgical History Hx of colonoscopy (~02/04/12) Social History Social History Household Members: Spouse Housing: House Do you presently have visiting nurse or other home services: No Alcohol intake: current Alcohol intake frequency: does not drink Patient Tobacco Use Status: Never used Tobacco Smoked in Last 30 Days: No e-Cigarette/Vaping Use: Never Used Second Hand Smoke Exposure: Yes Use of substances other than those prescribed or required for medical reasons: No Advance Directives: No Advance Directives Information Provided: Yes Do you have a plan to hurt others: No Plan service: No Current occupational status: employed Current occupation: [employer] Current occupational exposures/hazards: No Cognitive needs: No Hearing needs: No Vision needs: No Meds Allergies Allergy/AdvReac Type Severity Reaction Status Date / Time No Known Allergies Allergy Verified 11/09/24 13:47 Home Medications ?Medication ?Instructions ?Recorded ?Confirmed ?Last Taken ?Type albuterol sulfate 2.5 mg/3 mL 2.5 mg continuous nebuli zation Q6H 07/14/20 10/05/24 Unknown History (0.083 %) solution for nebulization PRN shortness of b reath or wheezing dupilumab 300 mg/2 mL subcutaneous 300 mg subcut Q2W 0 06/19/21 10/05/24 Unknown History pen injector (Dupixent) Physical Exam 2 Vital Signs: Vital Signs: Last Vital Signs Temp 97.8 F 11/09/24 14:00 Pulse 70 11/09/24 14:00 Resp 17 11/09/24 14:00 BP 147/54 H 11/09/24 14:00 Pulse Ox 97 11/09/24 14:00 O2 Del Method Room Air 11/09/24 14:00 BMI result Body Mass Index 63.6 Neuro: Other: He is alert and awake with normal spontaneity of speech fluency comprehension and affect. There was mild right-sided facial weakness that involved upper eyelid and forehead. There was minimal right-sided pronator drift. Otherwise examination did not reveal any significant abnormality. Plantars are flexor. Results Labs 11/09/24 13:58 11/09/24 13:58 Labs: Short CBC 11/09/24 Range/Units 13:58 WBC 6.1 (4.8-10.8) X10*3/uL Hgb 16.8 (14.0-18.0) g/dl Hct 49.0 (42.0-52.0) % Plt Count 165 (160-400) X10*3/uL BMP 11/09/24 13:58 Sodium 139 Potassium 3.8 D Chloride 108 Carbon Dioxide 24 BUN 15 Creatinine 0.[address] and CTA of brain and neck were somewhat limited because of morbid obesity but did not reveal any obvious abnormality or stenosis. His EKG revealed atrial fibrillation, which apparently was new. Assessment and Plan (1) Cerebral infarction: Qualifiers: Cerebral infarction mechanism: embolism Precerebral and cerebral artery: middle cerebral artery Laterality of affected vessel: left Qualified Code(s): I63.412 - Cerebral infarction due to embolism of left middle cerebral artery Status: Acute 64 years old man with morbid obesity and controlled hypertension was in emergency room with new onset of mild right-sided facial weakness. There was no other associated symptom. Examination revealed mild peripheral type of facial weakness with mild right pronator drift, which probably is cause by a small embolic left frontal lobe infarct because he is also diagnosed with atrial fibrillation. He is not diabetic and there was no active cold or flu-like illness or ear symptom to corroborate diagnosis of Ocampo's palsy. Unfortunately, because of his size and MRI could not be done and this diagnosis could not be confirmed. My recommendation is to treat him for embolic ischemic infarction and start anticoagulation. Procedures Date of Service Date of Service: 11/09/24
--- NOTE | 2024-11-09 17:40 | PM.IMHP ---
History of Present Illness Date of Service: 11/09/24 Attending physician on admission: Sheyla Fuentes Chief Complaint: right side facial weakness This is a 64-year-old male with history of hypertension, hypothyroidism who presents to the emergency department the right-sided facial weakness. He noted yesterday afternoon that he was unable to close his right eye and today he came to the emergency department for evaluation. He was also noted to have mild right facial weakness and mild right pronator drift. Brain CT was unremarkable, CTA head and neck with no LVO. Unable to have MRI due to body habitus. In the emergency department patient found to have new onset atrial fibrillation, with controlled rate. Patient denies any chest pain, shortness of breath, palpitations. Seen by Neurology while he is in the emergency department who recommended starting Eliquis. Review of Systems Review of Systems: Yes all other systems are reviewed and are negative Constitutional: Constitutional: Denies chills and Denies fever(s) ENT: Denies dizziness Cardiovascular: Cardiovascular: Denies chest pain, Denies palpitations and Denies dyspnea Respiratory: Respiratory: Denies cough and Denies dyspnea Gastrointestinal: Gastrointestinal: Denies abdominal pain, Denies diarrhea, Denies nausea and Denies vomiting Neurologic: Denies dizziness Endocrine: Endocrine: Denies palpitations [facility] Medical History Impaired fasting glucose Lymphedema Acquired hypothyroidism Vitamin D deficiency Multiple environmental allergies Benign essential hypertension Morbid obesity with BMI of 60.0-69.9, adult 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 Kidney calculi Asthma Family History Mother Congestive heart failure Father Lung cancer Surgical History Hx of colonoscopy (~02/04/12) Social History Household Members: Spouse Housing: House Do you presently have visiting nurse or other home services: No Alcohol intake: current Alcohol intake frequency: does not drink Patient Tobacco Use Status: Never used Tobacco e-Cigarette/Vaping Use: Never Used Second Hand Smoke Exposure: Yes service: No Current occupational status: employed Current occupation: [employer] Current occupational exposures/hazards: No Cognitive needs: No Hearing needs: No Vision needs: No Meds Allergies Allergy/AdvReac Type Severity Reaction Status Date / Time No Known Allergies Allergy Verified 11/09/24 13:47 Home Medications ?Medication ?Instructions ?Recorded ?Confirmed ?Last Taken ?Type dupilumab 300 mg/2 mL subcutaneous 300 mg subcut Q2W 06/19/21 11/09/24 10/26/24 History pen injector (Dupixent) cetirizine 10 mg tablet 10 mg PO DAILY 11/09/24 11/09/24 11/09/24 04:00 History furosemide 20 mg tablet 20 mg PO DAILY PRN edema 11/09/24 11/09/24 Unknown History levothyroxine 75 mcg tablet 75 mcg PO DAILY@0600 11/09/24 11/09/24 11/09/24 04:00 History Physical Exam Vital Signs and Narrative: Vital Signs: Last Vital Signs Temp 97.8 F 11/09/24 14:00 Pulse 70 11/09/24 14:00 Resp 17 11/09/24 14:00 BP 147/54 H 11/09/24 14:00 Pulse Ox 97 11/09/24 14:00 O2 Del Method Room Air 11/09/24 14:00 BMI result Body Mass Index 63.6 Const: General: cooperative, comfortable, alert and awake Nutritional Appearance: obese Orientation/consciousness: patient oriented x3 Resp: Effort & Inspection: normal respiratory effort, able to speak in complete sentences, no respiratory distress and no use of accessory muscles Cardio: Rate: regular rate Rhythm: abnormal rhythm irregularly irregular GI: Inspection: No distended Palpation (GI): Soft to palpation Neuro: Other: right facial weakness; mild right facial droop General: patient oriented x3 Extrem: Other: b/l LE venous stasis skin changes Results Labs 11/09/24 13:58 11/09/24 13:58 Labs: Laboratory Results - last 24 hr 11/09/24 11/09/24 11/09/24 13:58 14:19 14:20 MCV 89.4 MCH 30.7 MCHC 34.3 RDW 13.8 Plt Count 165 MPV 10.7 Immature Gran % (Auto) 0.3 Neut % (Auto) 53.3 Lymph % (Auto) 26.3 [place] % (Auto) 11.3 H Eos % (Auto) 7.5 H Baso % (Auto) 1.3 Lymph # (Auto) 1.6 [place] # (Auto) 0.7 Eos # (Auto) 0.5 H Baso # (Auto) 0.1 Abs Immat Gran (auto) 0.02 Absolute Neuts (auto) 3.3 Absolute Nucleated RBC 0.000 Nucleated RBC % (auto) 0.0 PT 12.2 Whole Blood PT 12.8 INR 1.1 Whole Blood INR 1.1 APTT 27.0 Anion Gap 11 L Estim Creat Clear Calc 178.1 Estimated GFR > 60 POC Glucose 131 H Random Glucose 124 H Calcium 9.0 Troponin I High Sens 7.3 Triglycerides 122 Cholesterol 133 LDL Cholesterol, Calc 76 HDL Cholesterol 33 L Imaging Radiologist's Impressions: Impressions Head CT 11/09/24 14:30 IMPRESSION: Unremarkable unenhanced head CT. Findings were discussed with Dr. Jackson in the emergency room on 11/09/2024 at 2:49 PM. Electronically signed by: Chon Baxter MD 11/09/2024 02:48 PM EDT RP Head/Neck CTA 11/09/24 14:34 IMPRESSION: CTA NECK: 1. Exam significantly limited by patient body habitus and beam starvation artifact. Cannot well assess the origins of the vertebral arteries. 2. There is aneurysmal dilatation of the imaged aortic arch up to 4.7 cm. 3. Within confines of artifact, there is no high-grade stenosis, occlusion, dissection, or additional aneurysm in the major cervical arterial vasculature. CTA HEAD: 1. There is no evidence of high-grade stenosis, occlusion, dissection, or aneurysm in the major intracranial arterial vasculature. 2. The major cortical and dural venous sinuses are patent. 3. No definite evolving infarct or space-occupying hemorrhage. Electronically signed by: Jason Ellis MD 11/09/2024 03:17 PM EDT RP Assessment and Plan (1) New onset a-fib: Status: Acute (2) Cerebral infarction: Qualifiers: Cerebral infarction mechanism: embolism Laterality of affected vessel: left Precerebral and cerebral artery: middle cerebral artery Qualified Code(s): I63.412 - Cerebral infarction due to embolism of left middle cerebral artery Status: Acute Plan This is a 64-year-old male with history of hypertension, hypothyroidism, asthma on Dupixent who presents to the emergency department with right facial weakness found to have new onset atrial fibrillation and probable acute embolic stroke Acute embolic stroke due to new onset atrial fibrillation LKWT yesterday afternoon seen by neurology, probably acute embolic stroke. unable to have MRI for confirmation due to body habitus check lipid profile, hba1c PT/OT evaluation stroke education, neuro checks start statin and Eliquis for AC new onset atrial fibrillation HR controlled check echo cardiology consult starting on AC with Eliquis due to acute stroke as above AAA aneurysmal dilation of the aortic arch measure 4.7 cm consult to vascular surgery Hypothyroidism Continue Synthroid HTN continue norvasc asthma no acute exacerbation morbid obesity BMI 63.6 weight loss encouraged dvt ppx - eliquis code status - full code Patient will likely require 2 midnight stay in the hospital for management of acute embolic stroke and new onset atrial fibrillation requiring further workup and specialist evaluation Quality Stroke Does the patient have a stroke diagnosis?: Yes Reason for No Anti-thrombotic by Day Two: N/A - Med Ordered VTE Prior VTE?: No VTE Risk Level:: Medical - moderate - high VTE Device Contraindication: N/A - Device Ordered VTE Drug Contraindication: N/A - Med Ordered
--- NOTE | 2024-11-09 18:00 | PHA.MEDREC ---
Addendum entered by Mar Verdin RPh 11/09/24 18:12: Reviewed by [facility] Original Note: Pharmacy Consult ? Medication Reconciliation Pharmacy has completed the medication reconciliation. Spoke with pt and he confirmed his medications. Pt confirmed his Dupixent Q2W and states he is due for that today, he is not taking Trazodone anymore; pt states he took it for 2 days and stopped it due to not finding relief taking it and he has not taken his Trellegy in about a month due to that medication giving him mouth sores.
[2024-11-09 18:35] VITALS: BP 133/70; PULSE 71; RESP 16; TEMP 36.8; O2SAT 97
[2024-11-09 22:33] VITALS: BP 128/67; PULSE 63; RESP 18; TEMP 36.9; O2SAT 96
[2024-11-10 02:25] VITALS: BP 121/51; PULSE 65; RESP 19; TEMP 36.6; O2SAT 97
[2024-11-10 06:07] VITALS: BP 135/60; PULSE 65; RESP 14; TEMP 36.6; O2SAT 97
--- NOTE | 2024-11-10 07:00 | CA_ITS ---
Transthoracic Echocardiogram Patient (Last, First, Middle): Kali Munoz, Gender: Male Date of : 1960 Age: 64 Procedure Date: 11/10/2024 Procedure Type: Transthoracic Echocardiogram Location: ER Height: 182. cm Weight: 212.74 kg BSA: 3.05 m2 Heart Rate: bpm BP: 135 / 60 mmHg Founder / Ceo: SILVESTRE Referring MD: Luanne CARNEY Symptoms: new afib; stroke protocol Study Quality: Fair ECG Rhythm: Atrial Fibrillation Conclusions: - Normal left ventricular cavity size. There is severely increased left ventricular wall thickness. The left ventricular systolic function is borderline reduced. The visually estimated ejection fraction is between 45-50%. - The apical lateral and mid anterolateral segments are hypokinetic. - There is moderate dilatation of the ascending aorta measuring 5.10 cm and mild dilatation of the aortic arch measuring 4.10 cm. Findings Procedure Information Contrast agent, definity, is being given per protocol without apparent complications. Left Ventricle Normal left ventricular cavity size. There is severely increased left ventricular wall thickness. The left ventricular systolic function is borderline reduced. The visually estimated ejection fraction is between 45 50%. There is evidence of regional wall motion abnormalities. Diastolic function is indeterminate on the basis of available data. Wall Motion Rest Echo Findings The apical lateral and mid anterolateral segments are hypokinetic. Atria The left atrium is likely dilated. The right atrium was not well visualized. Aortic Valve The aortic valve was not well visualized. There is mild calcification of the aortic valve. There is no aortic valve stenosis. There is no aortic valve regurgitation. Mitral Valve The mitral valve appears normal. There is no mitral valve regurgitation. There is no mitral valve stenosis. Pulmonic Valve The pulmonic valve was not well visualized. Tricuspid Valve Normal tricuspid valve structure. There is no tricuspid valve regurgitation. Normal right atrial pressure. There is no evidence of pulmonary hypertension. Great Vessels There is moderate dilatation of the ascending aorta measuring 5.10 cm and mild dilatation of the aortic arch measuring 4.10 cm. Venous The inferior vena cava is normal in size and collapses greater than 50% with inspiration. Pericardium/Pleural There is no evidence of pericardial effusion. Prior Study Comparison No prior study available for comparison. Measurements 2D Linear Measurements IVSd: 1.66 0.6-0.9/0.6-1.0 cm LVIDd: 5.00 3.9-5.3/4.2-5.9 cm LVIDd Index: 1.64 2.4-3.2/2.2-3.1 cm/m2 LVIDs: 3.88 2.0-3.6 cm LVPWd: 1.61 0.7-1.1 cm Ao Root: 4.20 2.1-3.5 cm LA Diam: 5.20 2.7-3.8/3.0-4.0 cm LAIDs Index: 1.70 1.5-2.3 cm/m2 LV Mass: 458.23 67-162/88-224 g LV Mass Index: 150.24 43-95/49-115 g/m2 LVOT Diam: 2.60 3.0+(-)1.3 cm 2D Systolic Function EF 4C: 47.00 >55% EF 2C: 37.80 >55% EF BiP: 43.30 >55% Mitral Valve MV Pk E: 0.81 MV Decel Time: 228.00 E'Lateral: 13.90 E'Medial: 9.42 E/E' Med: 8.60 E/E' Lat: 5.80 PHT: 67.00 MVA PHT: 3.28 Decel [place]: 3.56 Aortic Valve AoV Pk Dung: 1.70 AoV Mn Dung: 1.33 AoV VTI: 0.41 AoV Pk Grad: 12.00 Aov Mn Grad: 8.00 DIANNE Cont.VTI: 2.83 LVOT LVOT Pk Dung: 0.94 LVOT Mn Dung: 0.70 LVOT VTI: 0.22 LVOT Pk Grad: 4.00 LVOT Mn Grad: 2.00 LVOT Diam: 2.60 LVOT Area: 5.31 Diastolic Function MV Pk E: 0.81 E'Medial: 9.42 E/E' Med: 8.60 E' Laterial: 13.90 E/E' Lat: 5.80 Right Ventricle TAPSE (mm): 22.00 TVS' Dung: 12.00 Tricuspid Valve TR Pk Dung: 2.00 TR Pk Grad: 16.00 RA Press: 3.00 RVSP: 19.00 Great Vessels Aorta Ao Root-2D: 4.20 2.0-3.7 cm Ao Asc: 5.10 2.1-3.4 cm Ao Arch: 4.10 Pulmonary Valve PV Pk Dung: 0.93 Peak PV Grad: 3.00 Updated in Other Vendor System with Status of Final Aristides Camp MD electronically signed on 11/10/2024 8:46:02 PM with status of Final
[2024-11-10 07:17] LABS: Hemoglobin A1C 187.2256 umol/L; Total Hemoglobin (HGBA1C) 4276.9055 umol/L
[2024-11-10 07:23] VITALS: PULSE 63; RESP 19; O2SAT 97
--- NOTE | 2024-11-10 07:23 | PC.NURSE ---
Pt A&O X VSS NAD NO complaints- martinez bkfts well.
[2024-11-10 09:23] VITALS: BP 126/72
--- NOTE | 2024-11-10 09:33 | P.CONCA_ITS ---
History of Present Illness History of Present Illness Date of Service: 11/10/24 Chief complaint: R sided facial numbness, Afib Narrative: 64-year-old gentleman with background history of diabetes who is presenting with right sided facial weakness and CVA. He was noticed to have new onset atrial fibrillation. He has been seen by neurology and has been started on apixaban. He is denying any symptoms from atrial fibrillation currently. Never had any previous neurological issues. No bleeding issues in the past either. He has morbid obesity. 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 Kidney calculi Asthma Family History Family History Mother Congestive heart failure Father Lung cancer Surgical History Surgical History Hx of colonoscopy (~02/04/12) Social History Social History Household Members: Spouse Housing: House Do you presently have visiting nurse or other home services: No Alcohol intake: current Alcohol intake frequency: does not drink Patient Tobacco Use Status: Never used Tobacco e-Cigarette/Vaping Use: Never Used Second Hand Smoke Exposure: Yes service: No Current occupational status: employed Current occupation: [employer] Current occupational exposures/hazards: No Cognitive needs: No Hearing needs: No Vision needs: No Meds Allergies Allergy/AdvReac Type Severity Reaction Status Date / Time No Known Allergies Allergy Verified 11/09/24 13:47 Active Medications: Current Medications Acetaminophen (Acetaminophen 325 Mg Tablet) 650 mg PO Q6H PRN PRN Reason: Pain, Mild 1-3,fever,headache Amlodipine Besylate (Amlodipine Besylate 5 Mg Tablet) 5 mg PO DAILY DARSHANA; Protocol Last Admin: 11/10/24 09:23 Dose: 5 mg Apixaban (Apixaban 5 Mg Tablet) 5 mg PO BID DARSHANA Last Admin: 11/10/24 09:22 Dose: 5 mg Atorvastatin Calcium (Atorvastatin Calcium 80 Mg Tablet) 80 mg PO BEDTIME [facility] Last Admin: 11/09/24 20:52 Dose: 80 mg Calcium Carbonate (Calcium Carbonate 750 Mg Tab.Chew) 750 mg PO Q4H PRN PRN Reason: Heartburn Levothyroxine Sodium (Levothyroxine Sodium 75 Mcg Tablet) 75 mcg PO DAILY@0600 [facility] Last Admin: 11/10/24 05:22 Dose: 75 mcg Loratadine (Loratadine 10 Mg Tablet) 10 mg PO DAILY [facility] Last Admin: 11/10/24 09:23 Dose: 10 mg Magnesium Hydroxide (Milk Of Magnesia 30 Ml Oral.Susp) 30 ml PO DAILY PRN PRN Reason: Constipation Melatonin (Melatonin 3 Mg Tablet) 6 mg PO BEDTIME PRN PRN Reason: Insomnia Montelukast Sodium (Montelukast Sodium 10 Mg Tablet) 10 mg PO BEDTIME [facility] Last Admin: 11/09/24 20:52 Dose: 10 mg Vitamin D (Cholecalciferol (Vitamin D3) 25 Mcg Tablet) 50 mcg PO DAILY [facility] Last Admin: 11/10/24 09:23 Dose: 50 mcg Home Medications ?Medication ?Instructions ?Recorded ?Confirmed ?Last Taken ?Type dupilumab 300 mg/2 mL subcutaneous 300 mg subcut Q2W 0 06/19/21 11/09/24 10/26/24 History pen injector (Dupixent) cetirizine 10 mg tablet 10 mg PO DAILY 11/09/2410/2011/09/24 04:00 History furosemide 20 mg tablet 20 mg PO DAILY PRN edema 11/09/24 Unknown History levothyroxine 75 mcg tablet 75 mcg PO DAILY@0600 11/0911/09/24 11/09/24 04:00 History Physical Exam 2 Vital Signs: Vital Signs: Last Vital Signs Temp 97.8 F 11/10/24 06:07 Pulse 63 11/10/24 07:23 Resp 19 11/10/24 07:23 BP 126/72 11/10/24 09:23 Pulse Ox 97 11/10/24 07:23 O2 Del Method Room Air 11/10/24 07:23 BMI result Body Mass Index 63.6 GENERAL APPEARANCE: in no acute distress, pleasant. NECK: no carotid bruit, no jugular venous distention. SKIN: no suspicious lesions, warm and dry. HEART: no murmurs, irregular rate and rhythm. LUNGS: clear to auscultation bilaterally. ABDOMEN: soft, nontender. EXTREMITIES: no edema. PERIPHERAL PULSES: equal. NEUROLOGIC: No gross deficits, AAO X 3 Objective Labs and Meds 11/09/24 13:58 11/09/24 13:58 Lab results: Laboratory Results - last 24 hr 11/09/24 11/09/24 11/09/24 13:58 14:19 14:20 WBC 6.1 RBC 5.48 Hgb 16.8 Hct 49.0 MCV 89.4 MCH 30.7 MCHC 34.3 RDW 13.8 Plt Count 165 MPV 10.7 Immature Gran % (Auto) 0.3 Neut % (Auto) 53.3 Lymph % (Auto) 26.3 [place] % (Auto) 11.3 H Eos % (Auto) 7.5 H Baso % (Auto) 1.3 Lymph # (Auto) 1.6 [place] # (Auto) 0.7 Eos # (Auto) 0.5 H Baso # (Auto) 0.1 Abs Immat Gran (auto) 0.02 Absolute Neuts (auto) 3.3 Absolute Nucleated RBC 0.000 Nucleated RBC % (auto) 0.0 PT 12.2 Whole Blood PT 12.8 INR 1.1 Whole Blood INR 1.1 APTT 27.0 Sodium 139 Potassium 3.8 D Chloride 108 Carbon Dioxide 24 Anion Gap 11 L BUN 15 Creatinine 0.78 Estim Creat Clear Calc 178.1 Estimated GFR > 60 POC Glucose 131 H Random Glucose 124 H Estimat Average Glucose 131 Hemoglobin A1c % 6.2 H Calcium 9.0 Troponin I High Sens 7.3 Triglycerides 122 Cholesterol 133 LDL Cholesterol, Calc 76 HDL Cholesterol 33 L Imaging Radiologist's impression: Impressions Head CT 11/09/24 14:30 IMPRESSION: Unremarkable unenhanced head CT. Findings were discussed with Dr. Jackson in the emergency room on 11/09/2024 at 2:49 PM. Electronically signed by: Chon Baxter MD 11/09/2024 02:48 PM EDT Head/Neck CTA 11/09/24 14:34 IMPRESSION: CTA NECK: 1. Exam significantly limited by patient body habitus and beam starvation artifact. Cannot well assess the origins of the vertebral arteries. 2. There is aneurysmal dilatation of the imaged aortic arch up to 4.7 cm. 3. Within confines of artifact, there is no high-grade stenosis, occlusion, dissection, or additional aneurysm in the major cervical arterial vasculature. CTA HEAD: 1. There is no evidence of high-grade stenosis, occlusion, dissection, or aneurysm in the major intracranial arterial vasculature. 2. The major cortical and dural venous sinuses are patent. 3. No definite evolving infarct or space-occupying hemorrhage. Electronically signed by: Jason Ellis MD 11/09/2024 03:17 PM EDT Assessment and Plan (1) New onset a-fib: Status: Acute Plan 64-year gentleman presenting with CVA in the setting of new onset atrial fibrillation. Clinically denying any symptoms from atrial fibrillation. Agree with anticoagulation with apixaban 5 mg twice a day. Can continue rest of the medications as before. We will arrange outpatient follow-up. Will decide about cardioversion as outpatient. Procedures Date of Service Date of Service: 11/10/24
--- NOTE | 2024-11-10 10:08 | MHC.CM.PN ---
CM ATTEMPTED TO SEE PT, BEDSIDE IMAGING IN PROGRESS CM TO RETURN
--- NOTE | 2024-11-10 11:47 | P.CONGS_ITS ---
History of Present Illness Consult details Consult date: 11/10/24 Reason for consult: other (Stroke) Narrative: Very pleasant morbidly obese 64-year-old gentleman presents for evaluation regarding his carotids. He presents with right-sided facial weakness yesterday. He noted that he was unable to close his right eye and had a facial droop. He had a brain CT which was negative. In addition he underwent CTA of head and neck. He was unable to have an MRI due to claustrophobia and body habitus. He upon workup was discovered to have new onset AFib he was subsequently started on Eliquis. He now presents to us for vascular evaluation. Review of Systems 2 Review of Systems: Yes all other systems are reviewed and are negative Constitutional: Constitutional: Reports no additional constitutional complaints ENT: Reports Normal hearing present Cardiovascular: Cardiovascular: Denies chest pain, Denies chest pain at rest, Denies chest pain with activity and Denies pedal edema Respiratory: Respiratory: Denies cough Gastrointestinal: Gastrointestinal: Denies abdominal pain Musculoskeletal: Musculoskeletal: Denies abnormal gait, Denies muscle cramps and Denies radiating pain into limb Integumentary/Breasts: Skin/Breast: Denies skin ulcer and Denies wounds Neurologic: Reports Normal hearing present and Denies abnormal gait Psychiatric: Psychiatric: Reports no additional psychiatric complaints PMFSH Past Medical History Medical History Impaired fasting glucose Lymphedema Acquired hypothyroidism Vitamin D deficiency Multiple environmental allergies Benign essential hypertension Morbid obesity with BMI of 60.0-69.9, adult 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 Kidney calculi Asthma Family History Family History Mother Congestive heart failure Father Lung cancer Surgical History Surgical History Hx of colonoscopy (~02/04/12) Social History Social History Household Members: Spouse Housing: House Do you presently have visiting nurse or other home services: No Alcohol intake: current Alcohol intake frequency: does not drink Patient Tobacco Use Status: Never used Tobacco Smoked in Last 30 Days: No e-Cigarette/Vaping Use: Never Used Second Hand Smoke Exposure: Yes Use of substances other than those prescribed or required for medical reasons: No Advance Directives: No Advance Directives Information Provided: Yes Do you have a plan to hurt others: No Plan service: No Current occupational status: employed Current occupation: common [employer] Current occupational exposures/hazards: No Cognitive needs: No Hearing needs: No Vision needs: No Meds Allergies Allergy/AdvReac Type Severity Reaction Status Date / Time No Known Allergies Allergy Verified 11/09/24 13:47 Active Medications: Current Medications Acetaminophen (Acetaminophen 325 Mg Tablet) 650 mg PO Q6H PRN PRN Reason: Pain, Mild 1-3,fever,headache Amlodipine Besylate (Amlodipine Besylate 5 Mg Tablet) 5 mg PO DAILY [facility]; Protocol Last Admin: 11/10/24 09:23 Dose: 5 mg Apixaban (Apixaban 5 Mg Tablet) 5 mg PO BID [facility] Last Admin: 11/10/24 09:22 Dose: 5 mg Atorvastatin Calcium (Atorvastatin Calcium 80 Mg Tablet) 80 mg PO BEDTIME [facility] Last Admin: 11/09/24 20:52 Dose: 80 mg Calcium Carbonate (Calcium Carbonate 750 Mg Tab.Chew) 750 mg PO Q4H PRN PRN Reason: Heartburn Levothyroxine Sodium (Levothyroxine Sodium 75 Mcg Tablet) 75 mcg PO DAILY@0600 [facility] Last Admin: 11/10/24 05:22 Dose: 75 mcg Loratadine (Loratadine 10 Mg Tablet) 10 mg PO DAILY [facility] Last Admin: 11/10/24 09:23 Dose: 10 mg Magnesium Hydroxide (Milk Of Magnesia 30 Ml Oral.Susp) 30 ml PO DAILY PRN PRN Reason: Constipation Melatonin (Melatonin 3 Mg Tablet) 6 mg PO BEDTIME PRN PRN Reason: Insomnia Montelukast Sodium (Montelukast Sodium 10 Mg Tablet) 10 mg PO BEDTIME [facility] Last Admin: 11/09/24 20:52 Dose: 10 mg Vitamin D (Cholecalciferol (Vitamin D3) 25 Mcg Tablet) 50 mcg PO DAILY [facility] Last Admin: 11/10/24 09:23 Dose: 50 mcg Home Medications ?Medication ?Instructions ?Recorded ?Confirmed ?Last Taken ?Type dupilumab 300 mg/2 mL subcutaneous 300 mg subcut Q2W 0 06/19/21 11/09/24 10/26/24 History pen injector (Dupixent) cetirizine 10 mg tablet 10 mg PO DAILY 11/09/24/2 04/1411/09/24 04:00 History furosemide 20 mg tablet 20 mg PO DAILY PRN edema 11/09/24 Unknown History ibuprofen 200 mg tablet 800 mg PO Q8H PRN Pain 11/0911/09/24 Unknown History levothyroxine 75 mcg tablet 75 mcg PO DAILY@0600 11/0911/09/24 11/09/24 04:00 History Physical Exam 2 Vital Signs: Vital Signs: Last Vital Signs Temp 97.8 F 11/10/24 06:07 Pulse 63 11/10/24 07:23 Resp 19 11/10/24 07:23 BP 126/72 11/10/24 09:23 Pulse Ox 97 11/10/24 07:23 O2 Del Method Room Air 11/10/24 07:23 BMI result Body Mass Index 63.6 Const: General: cooperative, healthy appearing and comfortable O rientation/consciousness: oriented to person, oriented to place and oriented to time HEENT: Head: Yes normal to inspection Neck: Neck: Yes normal visual inspection Carotids: no bruits Chest: Chest palpation & inspection: normal inspection of the chest Resp: Effort & Inspection: normal respiratory effort and able to speak in complete sentences Auscultation: clear to auscultation bilaterally, no crackles, no rales, no rhonchi and no wheezes Cardio: Rate: regular rate Rhythm: regular rhythm Heart sounds: S1 normal heart sound present and S2 normal heart sound present Bruits: no carotid bruits Peripheral pulses: Peripheral pulses 2+ throughout GI: Inspection: Yes normal to inspection Skin: Wounds: no wounds Hair: normal Neuro: General: oriented to person, oriented to place and oriented to time Cranial nerves: Yes CN's II-XII intact bilaterally and Yes Normal hearing present Cognition (Neuro): normal cognition Motor exam (neuro): 5/5 motor strength present throughout Extrem: Other: venous exam: No significant superficial varicosities or spider telangiectasias, minimal edema General: No clubbing, No cyanosis and No edema Psych: Appearance: grossly normal Mental Status: mental status grossly normal Speech and movement: Normal speech and movement present Results Labs 11/09/24 13:58 11/09/24 13:58 Labs: Abnormal lab results 11/09/24 11/09/24 Range/Units 13:58 14:19 [place] % (Auto) 11.3 H (2-11) % Eos % (Auto) 7.5 H (0-4) % Eos # (Auto) 0.5 H (0.0-0.4) X10*3/uL Anion Gap 11 L (12-20) POC Glucose 131 H (60-115) mg/dL Random Glucose 124 H (60-115) mg/dL Hemoglobin A1c % 6.2 H (<6.0) % HDL Cholesterol 33 L (>40) mg/dL Short CBC 11/09/24 Range/Units 13:58 WBC 6.1 (4.8-10.8) X10*3/uL Hgb 16.8 (14.0-18.0) g/dl Hct 49.0 (42.0-52.0) % Plt Count 165 (160-400) X10*3/uL BMP 11/09/24 13:58 Sodium 139 Potassium 3.8 D Chloride 108 Carbon Dioxide 24 BUN 15 Creatinine 0.78 Calcium 9.0 All other labs normal. Imaging Additional studies: 11/09/2024 CTA neck and head were essentially negative. Assessment and Plan (1) Weakness on right side of face: Status: Acute Plan In short patient has questionable finding of a stroke. Unfortunately we are unable to better define this due to the lack of an MRI. He does have new onset AFib which is being followed by Cardiology and he is anticoagulated. In terms of his carotids they are essentially clean. I do not believe that they are the source of any issues for him at the current time. Would continue medical workup and he will follow up with us on an as-needed basis. Thank you for allowing us to assist in his care. Procedures Date of Service Date of Service: 11/10/24
--- NOTE | 2024-11-10 12:46 | P.DS_ITS ---
DS: Providers Provider Date of Service: 11/10/24 Date of admission: 11/09/24 16:57 Date of discharge: 11/10/24 Primary care physician: Harshad Horn MD Consults: 11/09/24 17:37 Consult to Neurology Routine Consulting Provider: Eboni Quiñonez Reason for consultation: stroke Has provider been notified: Yes 11/09/24 17:43 Consult to Cardiology Routine Consulting Provider: [facility] [place] Reason for consultation: new afib Has provider been notified: No 11/09/24 18:16 Consult to Vascular Surgery Routine Consulting Provider: [facility] Reason for consultation: aortic arch aneurysm Has provider been notified: No Attending physician on discharge: Sheyla Fuentes Discharging clinician: Sheyla Fuentes DS: Diagnosis Discharge Diagnosis (1) Weakness on right side of face: Status: Acute DS: Summary Hospital Course Hospital Course: HPI: 64-year-old male with history of hypertension, hypothyroidism, asthma on Dupixent who presents to the emergency department with right facial weakness found to have new onset atrial fibrillation and probable acute embolic stroke, Hospital course:New onset AFib, heart rate controlled without medication, also possible mild peripheral type of facial weakness with mild right pronator drift, which probably is cause by a small embolic left frontal lobe infarct because he is also diagnosed with atrial fibrillation,seen by neuro:there was no active cold or flu-like illness or ear symptom to corroborate diagnosis of Ocampo's palsy. Unfortunately, because of his size and MRI could not be done and this diagnosis could not be confirmed. neuro recommendation is to treat him for embolic ischemic infarction and start anticoagulation. echo done -but low suspcions ,so will plan discharge. continue eliquis , statin Diabetes type 2: Encouraged for weight loss, repeat hemoglobin A1c outpatient, diabetic diet. We will add small dose metformin. plan: Continue Eliquis, statin added metformin. above amangement d/w patient in detail length,he understands and in agreement with above plan, time spent 45 min.allquestions answered. Time Attestation Discharge Coordination Time (in mins): 45 Quality: Safe Use of Opioids Does Pt have an Active Cancer Diagnosis on the Problem List?: No Quality: Stroke Does the patient have a stroke diagnosis?: Yes Reason for No Anti-thrombotic at DC: N/A - Med Ordered Reason for No Anticoagulant at DC: N/A - Med Ordered Reason Not Initiating IV-Tpa: N/A - Med Ordered Reason for No Anti-thrombotic by Day Two: N/A - Med Ordered Reason for No Statin at DC: N/A - Med Ordered Physical Exam Vital Signs: Vital Signs: Last Vital Signs Temp 97.8 F 11/10/24 06:07 Pulse 63 11/10/24 07:23 Resp 19 11/10/24 07:23 BP 126/72 11/10/24 09:23 Pulse Ox 97 11/10/24 07:23 O2 Del Method Room Air 11/10/24 07:23 BMI result Body Mass Index 63.6 Gen: Appears be in no acute distress; obese HEENT: Moist mucosa. Pulmonary: , fair air entry CVS: Normal S1-S2 Abdomen: BS+, Soft, Nontender Extremities: Warm well perfused Neuro: eye closing improving ,moves all ext DS: Data Data Completed and Pending Labs on day of discharge: Laboratory Results - last 24 hr 11/09/24 11/09/24 11/09/24 13:58 14:19 14:20 WBC 6.1 RBC 5.48 Hgb 16.8 Hct 49.0 MCV 89.4 MCH 30.7 MCHC 34.3 RDW 13.8 Plt Count 165 MPV 10.7 Immature Gran % (Auto) 0.3 Neut % (Auto) 53.3 Lymph % (Auto) 26.3 [place] % (Auto) 11.3 H Eos % (Auto) 7.5 H Baso % (Auto) 1.3 Lymph # (Auto) 1.6 [place] # (Auto) 0.7 Eos # (Auto) 0.5 H Baso # (Auto) 0.1 Abs Immat Gran (auto) 0.02 Absolute Neuts (auto) 3.3 Absolute Nucleated RBC 0.000 Nucleated RBC % (auto) 0.0 PT 12.2 Whole Blood PT 12.8 INR 1.1 Whole Blood INR 1.1 APTT 27.0 Sodium 139 Potassium 3.8 D Chloride 108 Carbon Dioxide 24 Anion Gap 11 L BUN 15 Creatinine 0.78 Estim Creat Clear Calc 178.1 Estimated GFR > 60 POC Glucose 131 H Random Glucose 124 H Estimat Average Glucose 131 Hemoglobin A1c % 6.2 H Calcium 9.0 Troponin I High Sens 7.3 Triglycerides 122 Cholesterol 133 LDL Cholesterol, Calc 76 HDL Cholesterol 33 L Discharge Plan Discharge Anticipated Discharge Date/Time: 11/10/24 12:24 Patient Disposition: Home, Self-Care Discharge Diagnosis: new afib, new onset dm Referrals: Harshad Horn MD [Primary Care Provider, Internal Medicine] - 1 Week Discharge Medications: New atorvastatin 80 mg Tablet 80 mg PO BEDTIME Qty: 90 0RF Eliquis 5 mg Tablet 5 mg PO BID Qty: 180 0RF (DME) FreeStyle Lite Strips Strip Qty: 100 0RF Rx Instructions: Test four times a day or as directed. (DME) blood-glucose meter [FreeStyle Lite Meter] Kit Qty: 1 0RF Rx Instructions: As Directed alcohol swabs Pads, Medicated 1 pad TOPICAL QIDACHS Qty: 100 0RF Rx Instructions: Use four times a day or as directed. insulin lispro [Humalog KwikPen Insulin] 100 unit/mL insulin pen 0 sliding scale dose SUBCUT QIDACHS Qty: 15 0RF Rx Instructions: Blood Sugar: <150 - 0 units 151-200 - 2 units 201-250 - 4 units 251-300 - 6 units 301-350 - 8 units >350 - 10 units (DME) pen needle, diabetic 32 gauge x 1/4 needle Qty: 100 0RF Rx Instructions: Use four times a day or as directed. (DME) lancets [FreeStyle Lancets] 28 gauge misc Qty: 100 0RF Rx Instructions: Test four times a day or as directed. Continued cholecalciferol (vitamin D3) 50 mcg (2,000 unit) capsule 50 mcg PO DAILY 90 Days Qty: 90 3RF amlodipine 5 mg tablet 5 mg PO DAILY Qty: 90 1RF montelukast 10 mg tablet 10 mg PO BEDTIME Qty: 30 0RF cetirizine 10 mg tablet 10 mg PO DAILY levothyroxine 75 mcg tablet 75 mcg PO DAILY@0600 Rx Instructions: Take on an empty stomach, first thing in the morning, with water. Do not eat or drink anything else for 30 minutes afterwards furosemide 20 mg tablet 20 mg PO DAILY PRN (Reason: edema) Dupixent Pen 300 mg/2 mL pen injector 300 mg subcut Q2W Discontinued ibuprofen 200 mg Tablet 800 mg PO Q8H PRN (Reason: Pain) Discharge Orders: Discharge Order (Routine); Ordered 11/10/24 Ordered By: Sheyla Fuentes Activity on Discharge: As tolerated Stand Alone Forms: Patient Portal Discharge page, Work/School Release Print Language: Citizen [place] Other Ambulatory Orders: Basic Metabolic Panel (Routine) Timeframe: 1 Week Facility: [facility] - Location: Laboratory Ordered By: Sheyla Fuentes Hemoglobin A1c (Routine) Timeframe: 1 Week Facility: [facility] - Location: Laboratory Ordered By: Sheyla Fuentes Care Plan Goals: New onset AFib, heart rate control, also possible mild peripheral type of facial weakness with mild right pronator drift, which probably is cause by a small embolic left frontal lobe infarct because he is also diagnosed with atrial fibrillation,seen by neuro:there was no active cold or flu-like illness or ear symptom to corroborate diagnosis of Ocampo's palsy. Unfortunately, because of his size and MRI could not be done and this diagnosis could not be confirmed. neuro recommendation is to treat him for embolic ischemic infarction and start anticoagulation. Consider outpatient sleep study also. echo done -but low suspcions ,so will plan discharge. continue eliquis , statin Health Concerns: as above Plan of Treatment: as above. Assessment: as above. Patient Instructions: A-fib (Atrial Fibrillation) (DC), Ischemic Stroke (DC), Diabetes and Exercise (DC) Discharge Date/Time: 11/10/24 13:55
--- NOTE | 2024-11-10 12:50 | MHC.CM.PN ---
This CM is following for dc needs only today. Patient has been medically cleared for dc to home today, self care.
--- NOTE | 2024-11-10 13:16 | MHC.CM.PN ---
PT LIVES WITH AND IS INDEPENDENT WITH CARE NO DME OR SERVICES PT CLEARED BY PT/OT PT DISCHARGED HOME TODAY VIA PRIVATE TRANSPORT
[2024-11-10 13:51] VITALS: BP 126/72; PULSE 0; RESP 14; TEMP -17.7; TEMP 0
== END 2024-11-10 13:55 | disposition home or self-care (01) | DRG 65 ==
LOC: HO.ED 16:58 → HO.EDOVER 17:01
PROVIDERS: Physician Assistant Medical; Admitting Provider Physician Assistant Medical; Emergency Provider Emergency Medicine; PCP Internal Medicine; Visit Provider Internal Medicine
DX: I63.412 Cerebral infarction due to embolism of left middle cerebral artery (principal); Z68.44 Body mass index [BMI] 60.0-69.9, adult; R29.810 Facial weakness; I71.40 Abdominal aortic aneurysm, without rupture, unspecified; E03.9 Hypothyroidism, unspecified; I48.91 Unspecified atrial fibrillation; E11.9 Type 2 diabetes mellitus without complications; I10 Essential (primary) hypertension; R20.0 Anesthesia of skin; R29.701 NIHSS score 1; E66.01 Morbid (severe) obesity due to excess calories; Z71.3 Dietary counseling and surveillance; Z79.4 Long term (current) use of insulin; Z79.890 Hormone replacement therapy; Z79.899 Other long term (current) drug therapy
CPT/HCPCS: 36415; 70450; 70496; 70498; 80048; 80061; 82947; 83036; 84484; 85025; 85610; 85730; 93005; 93306; 97162; 97165; 99222; 99285; Q9957; Q9967

== ENCOUNTER → 2024-11-09 13:43 | Outpatient (BNV) | payer OTHER, SELFPAY | PROVIDERS: Emergency Provider Emergency Medicine; PCP Internal Medicine; Visit Provider Radiology Diagnostic Radiology | DX: R20.2 Paresthesia of skin (principal); I71.9 Aortic aneurysm of unspecified site, without rupture | CPT/HCPCS: 70450; 70496; 70498 ==

== ENCOUNTER → 2024-11-09 15:20 | Outpatient (BNV) | payer OTHER, SELFPAY | PROVIDERS: Emergency Provider Emergency Medicine; PCP Internal Medicine; Visit Provider Psychiatry & Neurology Neurology | DX: I63.412 Cerebral infarction due to embolism of left middle cerebral artery (principal) | CPT/HCPCS: 99223 ==

== ENCOUNTER 2024-11-09 16:57 | Outpatient (BNV) | payer OTHER, SELFPAY | END 2024-11-10 07:00 | PROVIDERS: Admitting Provider Physician Assistant Medical; Emergency Provider Emergency Medicine; PCP Internal Medicine; Visit Provider Internal Medicine Cardiovascular Disease | DX: I71.21 Aneurysm of the ascending aorta, without rupture (principal); I51.89 Other ill-defined heart diseases; I35.8 Other nonrheumatic aortic valve disorders | CPT/HCPCS: 93306 ==

== ENCOUNTER → 2024-11-09 16:57 | Outpatient (BNV) | payer OTHER, SELFPAY | PROVIDERS: Admitting Provider Physician Assistant Medical; Emergency Provider Emergency Medicine; PCP Internal Medicine; Visit Provider Physician Assistant Medical | DX: R29.810 Facial weakness (principal) | CPT/HCPCS: 99223; 99239 ==

== ENCOUNTER → 2024-11-09 16:57 | Outpatient (BNV) | payer OTHER, SELFPAY | PROVIDERS: Admitting Provider Physician Assistant Medical; Emergency Provider Emergency Medicine; PCP Internal Medicine; Visit Provider Internal Medicine Cardiovascular Disease | DX: I48.91 Unspecified atrial fibrillation (principal) | CPT/HCPCS: 93010; 99223 ==

== ENCOUNTER → 2024-11-09 16:57 | Outpatient (BNV) | payer OTHER, SELFPAY | PROVIDERS: Admitting Provider Physician Assistant Medical; Emergency Provider Emergency Medicine; PCP Internal Medicine; Visit Provider Surgery Vascular Surgery | DX: R29.810 Facial weakness (principal) | CPT/HCPCS: 99222 ==

== ENCOUNTER 2024-11-11 16:01 | Outpatient (AMB) | payer OTHER, SELFPAY ==
[2024-11-11 16:22] VITALS: BP 132/90; PULSE 63; O2SAT 98; BMI 62.8
--- NOTE | 2024-11-11 16:22 | A.OFFPC_ITS ---
Vital Signs 11/11/24 16:22 Height 6 ft Weight 463 lb 3.059 oz BMI 62.8 BP 132/90 H Blood Pressure Location Lt brachial Position Sitting Pulse 63 Pulse Source Pulse Oximeter Pulse Oximetry (%) 98 Oxygen Delivery Method Room Air Intake Visit Reasons: [facility] 11/10 stroke Project Manager Required: No Accompanied by: Self / Same As Patient Allergies No Known Allergies Allergy (Verified 11/11/24 16:44) Medication List - Last Reconciled 11/11/24 by Harshad Horn MD alcohol swabs 1 pad topical QIDACHS amlodipine 5 mg PO DAILY apixaban (Eliquis) 5 mg PO BID atorvastatin 80 mg PO BEDTIME blood sugar diagnostic (FreeStyle Lite Strips) Test four times a day or as directed. blood-glucose meter (FreeStyle Lite Meter kit) As Directed cetirizine 10 mg PO DAILY cholecalciferol (vitamin D3) 50 mcg PO DAILY 90 days dupilumab (Dupixent) 300 mg subcut Q2W furosemide 20 mg PO DAILY PRN insulin lispro (Humalog KwikPen (U-100) Insulin) Blood Sugar: <150 - 0 units 151-200 - 2 units 201-250 - 4 units 251-300 - 6 units 301-350 - 8 units >350 - 10 units lancets (FreeStyle Lancets) Test four times a day or as directed. levothyroxine 75 mcg PO DAILY@0600 montelukast 10 mg PO BEDTIME pen needle, diabetic Use four times a day or as directed. Tobacco use date assessed: 11/11/24 Fall risk assessment: No Falls in past year Last assessed Fall Risk: 11/11/24 Dental Screening Dental Screen Date: 11/11/24 Did you have a dental visit in the last 12 months?: Yes Did you have a dental problem in the last 6 months where you did not have access to dental care?: No Was dental information given to patient?: Patient has dentist HPI [facility] 11/10 stroke HPI Details Patient comes in today for his F follow up visit He went to the ER a couple of days ago for sudden onset of right facial numbness/weakness Workups done at the ER revealed (+) atrial fibrillation and patient was advised that he probably had an acute embolic CVA resulting in his right facial weakness Neurology was consulted and they ruled out Ocampo's palsy and recommended treating the patient empirically for embolic ischemic infarction and to start anticoagulation Because of patient's size (BMI >62), an MRI of the brain could not be done so his diagnosis of CVA could not be confirmed although a CT of the head came back negative and CT angiogram of the head and neck revealed no evidence of high-grade stenosis, occlusion, dissection or aneurysm in the major intracranial arterial vasculature. The major cortical and dural venous sinuses are patent and there are no definite evolving infarct or space-occupying hemorrhage seen An echocardiogram was done which revealed normal left ventricular cavity size but there is a severely increased left ventricular wall thickness with borderline reduction of the left ventricular systolic function. The visually estimated ejection fraction is between 45-50%. The apical lateral and mid anterolateral segments are hypokinetic and there is a moderate dilatation of the ascending aorta measuring 5.10 cm and mild dilatation of the aortic arch measuring 4.10 cm An EKG done confirm atrial fibrillation with left anterior fascicular block and left ventricular hypertrophy Patient reports that he has been under a lot of stress lately He presently denies any headaches or dizziness and states that his sided facial weakness/numbness is mostly unchanged from a couple of days ago Denies any chest pains, no increased shortness of breath No nausea/vomiting, no abdominal pain No change in bowel habits noted [facility] Medical History (Updated 11/11/24 @ 17:12 by Harshad Horn MD) Concentric left ventricular hypertrophy Impaired fasting glucose Lymphedema Acquired hypothyroidism Vitamin D deficiency Multiple environmental allergies Benign essential hypertension Morbid obesity with BMI of 60.0-69.9, adult 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 Kidney calculi Asthma Surgical History Hx of colonoscopy (~02/04/12) Family History Mother Congestive heart failure Father Lung cancer Social History Household Members: Spouse Housing: House Do you presently have visiting nurse or other home services: No Alcohol intake: current Alcohol intake frequency: does not drink Patient Tobacco Use Status: Never used Tobacco e-Cigarette/Vaping Use: Never Used Second Hand Smoke Exposure: Yes service: No Current occupational status: employed Current occupation: [employer] Current occupational exposures/hazards: No Cognitive needs: No Hearing needs: No Vision needs: No Questionnaire PHQ-9 Over the last 2 weeks, how often have you been bothered by any of the following problems? Depression Screening Interpretation: Negative Depression Screening Done: Yes Source: Developed by Drs. Chon Wilson, Shawna Tijerina, Juan Judge and colleagues, with an educational abi from [employer]. Thrive Questionnaire Date Thrive assessed: 09/21/24 I am a: Patient What is your living situation today?: I have a steady place to live Within the past 12 months, did the food you bought not last and you didn't have the money to get more?: Never true Within the past 12 months, did you worry whether your food would run out before you got money to buy more?: Never true Do you have trouble paying for medicines?: No Do you have trouble getting transportation to medical appointments?: No Do you have trouble paying your heating and electricity bill?: No Do you have trouble taking care of your child, family member or friend?: I choose not to answer this question Do you have trouble with day-to-day activities such as bathing, preparing meals, shopping, managing finances, etc.?: No Are you currently unemployed and looking for a job?: No Are you interested in more education?: No Please select the resources that you would like help with: None Currently or been in a relationship where the following occur: No concerns reported THRIVE Score: 0 AUDIT C Alcohol Use Questionnaire (AUDIT-C) 1. How often do you have a drink containing alcohol?: 2-3 times a week 2. How many drinks containing alcohol do you have on a typical day when you are drinking?: 1 or 2 3. How often do you have six or more drinks on one occasion?: Never Total Score: 3 Score Reviewed/Action Taken: Yes MARILEE-7 AMB Questionnaire MARILEE-7 Date MARILEE - 7 assessed: 09/28/24 Source: Developed by Drs. Chon Wilson, Juan Bernal and colleagues, with an educational abi from [employer]. Review of Systems Const Denies chills, Denies fatigue, Denies fever(s) and Denies headache(s) Eyes Denies change in vision and Denies loss of vision ENT Denies dysphagia, Denies dizziness, Denies otalgia, Denies headache(s), Denies neck pain, Denies odynophagia and Denies sore throat Card Denies chest pain, Denies rapid heart rate, Denies palpitations and Denies dyspnea Resp Denies chest congestion, Denies cough, Denies dyspnea and Denies wheezing GI Denies abdominal pain, Denies constipation, Denies dysphagia, Denies heartburn, Denies diarrhea, Denies nausea, Denies odynophagia and Denies vomiting Denies difficulty urinating, Denies dysuria, Denies nocturia and Denies urinary frequency Musc Reports back pain (over the lower back - chronic), Denies arthralgias and Denies neck pain Skin/Breast Denies rash Neuro Details: (+) right facial weakness/numbness; NO weakness of the arms or legs are noted Denies dizziness, Denies headache(s) and Denies loss of vision Psych Reports anxiety (relates increased anxiety lately) Endo Denies fatigue and Denies palpitations Aller/Immun Denies wheezing Physical exam (Primary Care) Vital Signs: Last Vital Signs Pulse 63 11/11/24 16:22 BP 132/90 H 11/11/24 16:22 Pulse Ox 98 11/11/24 16:22 Oxygen Delivery Method Room Air 11/11/24 16:22 BMI result Body Mass Index 62.8 Tobacco/Smoking Status: Tobacco use Status Tobacco use date assessed 11/11/24 11/11/24 16:25 Patient Tobacco Use Status Never used Tobacco 11/11/24 16:23 e-Cigarette/Vaping Use Never Used 11/11/24 16:23 Depression Screening Interpretation: Negative Thrive Assessment: Date of Thrive Assessment Date Thrive assessed 09/21/24 11/11/24 16:23 Currently or been in a relationship where the following occur: No concerns reported Const General: no acute distress and alert Orientation/consciousness: patient oriented x3 HENMT Other: (+) shallow right nasolabial fold, with (+) palsy of the right side of the face Ears: TM's normal bilaterally and EAC's normal Throat: Yes posterior oropharynx normal and Yes tonsils normal (no TP congestion) Eyes Pupils: Equal, round and reactive pupils present EOM: EOMs intact bilaterally Neck Neck: Yes supple and No lymphadenopathy Thyroid: Thyroid normal Resp Auscultation: clear to auscultation bilaterally, no rales and no wheezes Cardio Rate: regular rate Rhythm: abnormal rhythm irregularly irregular Heart sounds: no murmurs GI Palpation (GI): Soft to palpation and nontender Auscultation: normal bowel sounds General: Yes no CVA tenderness Back/Spine/Pelvis Back: no CVA tenderness Thoracic/Lumbar Spine: lumbar spinal tenderness Skin Rashes: no rashes Neuro Other: (+) mild pronator drift of the right upper extremity General: patient oriented x3, gait normal and moves all extremities Cranial nerves: Yes Equal, round and reactive pupils present Cognition (Neuro): normal cognition Gait exam (Neuro): Normal gait present Extrem General: Yes no clubbing, cyanosis or edema Results Reviewed Results Reviewed: Laboratory Tests 10/05/24 11/09/24 14:13 13:58 WBC 6.1 Hgb 16.8 Hct 49.0 Plt Count 165 Sodium 139 Potassium 3.8 D Creatinine 0.78 Estimated GFR > 60 Random Glucose 124 H Estimat Average Glucose 131 Hemoglobin A1c % 6.2 H Calcium 9.0 AST 33 ALT 19 Triglycerides 122 Cholesterol 133 LDL Cholesterol, Calc 76 HDL Cholesterol 33 L Coding Level of Care Code Est Pt Level 4 (98842) Complex EM visit Add On G2211 Diagnoses Persistent atrial fibrillation I48.19 Atrial fibrillation type: persistent (not longstanding) Cerebrovascular accident (CVA) due to embolism of cerebral artery I63.40 CVA mechanism: embolism Precerebral and cerebral artery: unspecified cerebral artery Concentric left ventricular hypertrophy I51.7 Ascending aorta dilation I77.810 Benign essential hypertension I10 Acquired hypothyroidism E03.9 Impaired fasting glucose R73.01 Severe persistent allergic asthma J45.50 Multiple environmental allergies Z91.09 Hyperproteinemia E88.09 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 M47.815 Lymphedema I89.0 Morbid obesity with BMI of 60.0-69.9, adult E66.01; Z68.44 Assessment & Plan Assessment & Plan (1) Atrial fibrillation: Code(s): I48.91 - Unspecified atrial fibrillation Category: Medical Qualifiers: Atrial fibrillation type: persistent (not longstanding) Qualified Code(s): I48.19 - Other persistent atrial fibrillation Plan: Patient is currently still in atrial fibrillation but is rate controlled Echocardiogram done a couple of days ago on 11/09/2024 revealed normal left ventricular cavity size but there is severely increased left ventricular wall thickness with borderline reduction of the left ventricular systolic function. The visually estimated ejection fraction is between 45-50%. The apical lateral and mid anterolateral segments are hypokinetic and there is a moderate dilatation of the ascending aorta measuring 5.10 cm and mild dilatation of the aortic arch measuring 4.10 cm Continue Apixaban 5 mg BID for thromboembolism prophylaxis Will refer patient to cardiology [facility] for further evaluation and management (2) CVA (cerebrovascular accident): Code(s): I63.9 - Cerebral infarction, unspecified Category: Medical Qualifiers: CVA mechanism: embolism Precerebral and cerebral artery: unspecified cerebral artery Qualified Code(s): I63.40 - Cerebral infarction due to embolism of unspecified cerebral artery Plan: Based on his symptoms at the time of presentation to the ER a couple of days ago, he likely had a CVA involving the left MCA Head CT done came out negative and CT angiogram of the head and neck revealed no evidence of high-grade stenosis, occlusion, dissection or aneurysm in the major intracranial arterial vasculature. The major cortical and dural venous sinuses are patent and there are no definite evolving infarct or space-occupying hemorrhage seen An MRI was not done at the time due to patient's size (BMI>62) Will try to send him for an open MRI of the brain [facility] for further evaluation Continue Apixaban 5 mg BID and will continue risk factor reduction (control of BP and cholesterol) Will refer him to neurology [facility] for further evaluation and management (3) Concentric left ventricular hypertrophy: Code(s): I51.7 - Cardiomegaly Category: Medical Plan: This was seen on his recent echocardiogram - advised patient that this is likely a result of his chronic/long-standing HTN He is being referred to cardiology for his atrial fibrillation and will include this in his referral and have cardiology look into this as well (4) Ascending aorta dilation: Code(s): I77.810 - Thoracic aortic ectasia Category: Medical Plan: (+) moderate dilatation of the ascending aorta measuring 5.10 cm and mild dilatation of the aortic arch measuring 4.10 cm were seen on his recent echocardiogram Have emphasized to patient the importance of strict blood pressure control (systolic BP should ideally be <120 mm) to slow down the progression of this Will refer him to vascular surgery [facility] for further evaluation and management (5) Benign essential hypertension: Code(s): I10 - Essential (primary) hypertension Category: Medical Plan: Reinforced low sodium diet - goal is systolic BP of 120 mm or less, based on his recent findings Continue Amlodipine 5 mg QD for now in light of his recent CVA but will need to continue to work on getting his systolic BP to goal in the near future Patient is reminded to continue monitoring his blood pressure regularly (6) Acquired hypothyroidism: Code(s): E03.9 - Hypothyroidism, unspecified Category: Medical Plan: Patient's TSH was still elevated when last checked in September 2024 but his free T4 level remained normal Continue Levothyroxine 75 mcg QD for now Will recheck his TFTs in a few months for follow up (7) Impaired fasting glucose: Code(s): R73.01 - Impaired fasting glucose Category: Medical Plan: Results of his labs done a couple f days ago at the ER reviewed and discussed with patient His FBS was again elevated at 124 mg/dl and his HgbA1c was at 6.2%, which indicates borderline DM Reinforced low calorie/low carb diet, exercise as tolerated Will continue to monitor his fasting blood sugar and HgbA1c routinely (8) Severe persistent allergic asthma: Code(s): J45.50 - Severe persistent asthma, uncomplicated Category: Medical Plan: Continue Trelegy Ellipta 1 inhalation QD, Singulair 10 mg QD and Albuterol MDI 2 puffs 4 times a day as needed Continue Dupixent injections every 2 weeks Patient states that his asthma has been much better controlled since starting on Dupixent injections a couple of years ago Follow-up with [facility] Pulmonary as scheduled (9) Multiple environmental allergies: Code(s): Z91.09 - Other allergy status, other than to drugs and biological substances Category: Medical Plan: Patient states that his allergies have also been much better controlled on Dupixent Continue Dupixent injections 300 mg SQ every [address] up [address] Deniz Ellis as scheduled (10) Hyperproteinemia: Code(s): E88.09 - Other disorders of plasma-protein metabolism, not elsewhere classified Category: Medical Plan: Patient was noticed to have persistent elevation of his serum protein level over the past couple of years Hyperproteinemia work ups have all been negative so far He was referred to Dr. 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: Code(s): M47.815 - Spondylosis without myelopathy or radiculopathy, thoracolumbar region Category: Medical Plan: Reinforced activity and weight-lifting restrictions to avoid aggravating his low back pain He is being prescribed Oxycodone 5 mg PRN - states that he takes this only as needed, mostly just at bedtime, for severe low back pain (12) Lymphedema: Code(s): I89.0 - Lymphedema, not elsewhere classified Category: Medical Plan: Continue Furosemide 20 mg Q AM PRN for increased swelling of his lower legs and feet (13) Morbid obesity with BMI of 60.0-69.9, adult: Code(s): E66.01 - Morbid (severe) obesity due to excess calories; Z68.44 - Body mass index [BMI] 60.0-69.9, adult Category: Medical Plan: Reinforced diet/exercise as tolerated/lose weight Plan Follow up in 1 month Orders: Orders MR head/brain wo/w con 11/11/24 I63.412 - Cerebral infarction due to embolism of left middle cerebral artery, I63.9 - Cerebral infarction, unspecified, R29.810 - Facial weakness Referrals Cardiology Referral I48.91 - Unspecified atrial fibrillation, I51.7 - Cardiomegaly, I63.412 - Cerebral infarction due to embolism of left middle cerebral artery, I63.9 - Cerebral infarction, unspecified Neurology Referral I63.412 - Cerebral infarction due to embolism of left middle cerebral artery, I63.9 - Cerebral infarction, unspecified Vascular Surgery Referral I77.810 - Thoracic aortic ectasia
== END 2024-11-11 17:14 | disposition home or self-care (01) ==
LOC: HO.HMCH 16:02
PROVIDERS: PCP Internal Medicine; Visit Provider Internal Medicine
DX: I48.19 Other persistent atrial fibrillation (principal); I63.40 Cerebral infarction due to embolism of unspecified cerebral artery; J45.50 Severe persistent asthma, uncomplicated; Z68.44 Body mass index [BMI] 60.0-69.9, adult; E66.01 Morbid (severe) obesity due to excess calories; I51.7 Cardiomegaly; I77.810 Thoracic aortic ectasia; I10 Essential (primary) hypertension; E03.9 Hypothyroidism, unspecified; Z91.09 Other allergy status, other than to drugs and biological substances; R73.01 Impaired fasting glucose; E88.09 Other disorders of plasma-protein metabolism, not elsewhere classified; M47.815 Spondylosis without myelopathy or radiculopathy, thoracolumbar region; I89.0 Lymphedema, not elsewhere classified

== ENCOUNTER → 2024-11-20 23:59 | Outpatient (BNV) | payer OTHER, SELFPAY | PROVIDERS: PCP Internal Medicine; Visit Provider Internal Medicine | DX: G51.0 Bell's palsy (principal); I48.0 Paroxysmal atrial fibrillation; E78.5 Hyperlipidemia, unspecified | CPT/HCPCS: G0180 ==

== ENCOUNTER 2024-11-23 14:55 | Outpatient (AMB) | payer OTHER, SELFPAY ==
[2024-11-23 15:30] VITALS: BP 124/82; PULSE 52; BMI 61.3
--- NOTE | 2024-11-23 15:30 | MHC.OFFVIS ---
Vital Signs 11/23/24 15:30 Height 6 ft Weight 451 lb 15.162 oz BMI 61.3 BP 124/82 Blood Pressure Location Lt brachial Position Sitting Pulse 52 Pulse Source Monitor Intake Visit Reasons: f/up-c/dc Press Officer Required: No Accompanied by: Other Relationship Allergies No Known Allergies Allergy (Verified 11/23/24 15:34) Medication List - Last Reconciled 11/23/24 by ATILIO Fernández alcohol swabs 1 pad topical QIDACHS amlodipine 5 mg PO DAILY apixaban (Eliquis) 5 mg PO BID atorvastatin 80 mg PO BEDTIME blood sugar diagnostic (FreeStyle Lite Strips) Test four times a day or as directed. blood-glucose meter (FreeStyle Lite Meter kit) As Directed cetirizine 10 mg PO DAILY cholecalciferol (vitamin D3) 50 mcg PO DAILY 90 days dupilumab (Dupixent) 300 mg subcut Q2W furosemide 20 mg PO DAILY PRN lancets (FreeStyle Lancets) Test four times a day or as directed. levothyroxine 75 mcg PO DAILY@0600 metoprolol tartrate 25 mg PO DAILY PRN montelukast 10 mg PO BEDTIME pen needle, diabetic Use four times a day or as directed. HPI HPI f/up-c/dc: Details: Kali is a 64-year-old male past medical history of morbid obesity, diabetes, hypertension, hyperlipidemia who was recently admitted to [facility] with right face weakness and dizziness. He was thought to have a CVA. He was found to have new onset atrial fibrillation and was started on Eliquis and metoprolol. He was found to have a dilated ascending aorta and outpatient follow-up was planned. He tells me days later he felt his condition was worsening and he was admitted to [facility]. 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 He has an MRI of the brain coming up. Today he reports that his right-sided facial weakness is much improved. He has some residual muscle weakness around the right forehead only. He never had any weakness with his extremities. No visual changes. He has had dizziness right along which has not improved. He has no chest pain at rest or with activity. He does not get heart palpitations. He has never been diagnosed with atrial fibrillation until recent admission. He has some shortness of breath at times which he relates to his asthma. No presyncope, syncope, falls. He wears compression stockings. He ambulates with a walker and describes himself as active throughout each day. No bleeding issues with Eliquis use. is present. Tells me his mother had Congestive heart failure and atrial fibrillation. states she witnesses him have apnea during sleep he has never undergone a sleep study. 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 Kidney calculi Asthma Surgical History Hx of colonoscopy (~02/04/12) Family History Mother Congestive heart failure Father Lung cancer Social History Household Members: Spouse Housing: House Do you presently have visiting nurse or other home services: No Alcohol intake: current Alcohol intake frequency: does not drink Patient Tobacco Use Status: Never used Tobacco e-Cigarette/Vaping Use: Never Used Second Hand Smoke Exposure: Yes service: No Current occupational status: employed Current occupation: [employer] Current occupational exposures/hazards: No Cognitive needs: No Hearing needs: No Vision needs: No Review of Systems Const All systems reviewed & are unremarkable except as noted in HPI and below Denies daytime sleepiness, Denies difficulty sleeping, Denies snoring, Denies stops breathing during sleep and Denies weakness ENT Reports dizziness Card Denies chest pain, Denies rapid heart rate, Denies irregular heart rhythm, Denies claudication, Denies leg edema, Denies lightheadedness, Denies palpitations, Denies dyspnea, Reports dyspnea on exertion, Denies orthopnea, Denies paroxysmal nocturnal dyspnea and Denies slow heart rate Resp Denies cough, Denies dyspnea, Reports dyspnea on exertion and Denies snoring GI Reports no additional complaints, Denies hematochezia, Denies change in stool character and Denies dyspepsia Musc Denies abnormal gait, Denies muscle weakness and Denies numbness Neuro Denies abnormal gait, Reports dizziness, Denies numbness and Denies weakness Endo Denies palpitations Physical Exam Vital Signs: Last Vital Signs Pulse 52 11/23/24 15:30 BP 124/82 11/23/24 15:30 BMI result Body Mass Index 61.3 Const General: cooperative, comfortable and no acute distress Orientation/consciousness: patient oriented x3 Resp Effort & Inspection: normal respiratory effort Auscultation: clear to auscultation bilaterally, no rales, no rhonchi and no wheezes Cardio Rate: regular rate Rhythm: regular rhythm Heart sounds: S1 normal heart sound present, S2 normal heart sound present, no gallops, no murmurs and no rubs Neuro General: patient oriented x3 Extrem General: Yes normal to inspection Psych Appearance: grossly normal Mental Status: mental status grossly normal Speech and movement: Normal speech and movement present Office Procedures EKG Details: Today, read by me, atrial fibrillation with slow ventricular response, LVH, septal Q-wave, rate 52, QTC 416 millisecond [id number], Complete Assessment & Plan Assessment & Plan (1) Atrial fibrillation: Code(s): I48.91 - Unspecified atrial fibrillation Category: Medical Qualifiers: Atrial fibrillation type: persistent (not longstanding) Qualified Code(s): I48.19 - Other persistent atrial fibrillation Plan: New finding of atrial fibrillation [place] [facility] [place]. He has put on metoprolol for heart rate control. He was put on Eliquis for anticoagulation. No bleeding issues reported. Echocardiogram showed EF 45-50%, left atrium likely dilated, right atrium not well visualized, apical lateral and mid anterior lateral hypokinetic. EKG done today showing atrial fibrillation with slow ventricular response, rate 52. Will check Holter monitor to see if he has persistent or paroxysmal AFib and to check heart rates. Will plan for cardioversion in at least 3 weeks, after 1 month of anticoagulation. Cardioversion procedure, risks and potential outcomes reviewed with him in detail. Cardiology follow-up 2 weeks post cardioversion. No med changes made at this time. (2) Sleep apnea in adult: Code(s): G47.30 - Sleep apnea, unspecified Category: Medical Plan: Morbidly obese male with witnessed apnea during sleep. New diagnosis of atrial fibrillation and mildly reduced EF. Will check an in-lab sleep study, he will likely benefit from CPAP. (3) Ascending aorta dilation: Code(s): I77.810 - Thoracic aortic ectasia Category: Medical Plan: Recent echocardiogram showing ascending aorta 5.1 cm. Aortic arch 4.1 cm. CTA of the neck does show ascending aorta measuring up to 4.7 cm. Reviewed this with him in the importance of good blood pressure control, statin use and the need for further evaluation including probable vascular surgery referral. He states understanding. Instructed on avoiding lifting greater than 25 lb. (4) Concentric left ventricular hypertrophy: Code(s): I51.7 - Cardiomegaly Category: Medical Plan: Echocardiogram shows severely dilated left ventricular wall, EF 45-50% with wall motion abnormality. Blood pressure is currently well controlled. He is morbidly obese, BMI 61.3 which can contribute. Going forward he will need ischemic eval. No anginal symptoms at this time. (5) Benign essential hypertension: Code(s): I10 - Essential (primary) hypertension Category: Medical Plan: Blood pressure goal less than 130/80. Well controlled at present. He brings a list of home blood pressures and they are typically 120-130 systolic. Continue amlodipine, metoprolol. (6) Weakness on right side of face: Code(s): R29.810 - Facial weakness Category: Medical Plan: Right-sided facial weakness recently occurred with concern for CVA. He tells me he was diagnosed with Ocampo's palsy. Still has residual dizziness. CVA not entirely excluded since he does have atrial fibrillation. Brain MRI is pending. (7) Hospital discharge follow-up: Code(s): Z09 - Encounter for follow-up examination after completed treatment for conditions other than malignant neoplasm Category: Medical Plan: Discharge summary and cardiology notes reviewed Plan Time spent on chart review, documentation, interview, patient education, [place] paperwork and assessment Orders: Orders Cardioversion 3 Weeks I48.19 - Other persistent atrial fibrillation ECG 3 day holter monitor Today I48.19 - Other persistent atrial fibrillation RT PSG in-lab sleep study Today G47.30 - Sleep apnea, unspecified Coding Level of Care Code Est Pt Level 5 (42435) Complex EM visit Add On G2211 Diagnoses Persistent atrial fibrillation I48.19 Atrial fibrillation type: persistent (not longstanding) Sleep apnea in adult G47.30 Ascending aorta dilation I77.810 Concentric left ventricular hypertrophy I51.7 Benign essential hypertension I10 Weakness on right side of face R29.810 Hospital discharge follow-up Z09 CPT Codes EKG - CPT: 70853-[id number], Complete ([id number]) Time Spent (min) 50
== END 2024-11-23 16:43 | disposition home or self-care (01) ==
LOC: HO.HCS 14:56
PROVIDERS: PCP Internal Medicine; Visit Provider Nurse Practitioner Family
DX: I48.19 Other persistent atrial fibrillation (principal); G47.30 Sleep apnea, unspecified; I77.810 Thoracic aortic ectasia; I51.7 Cardiomegaly; I10 Essential (primary) hypertension; R29.810 Facial weakness; Z09 Encounter for follow-up examination after completed treatment for conditions other than malignant neoplasm
CPT/HCPCS: 93010; 99215

== ENCOUNTER → 2024-11-23 14:55 | Outpatient (BNVA) | payer OTHER, SELFPAY | PROVIDERS: PCP Internal Medicine; Visit Provider Nurse Practitioner Family | DX: Z09 Encounter for follow-up examination after completed treatment for conditions other than malignant neoplasm (principal); I48.19 Other persistent atrial fibrillation; I77.810 Thoracic aortic ectasia; I51.7 Cardiomegaly; I10 Essential (primary) hypertension; G47.30 Sleep apnea, unspecified; R29.810 Facial weakness | CPT/HCPCS: 93005 ==

== ENCOUNTER 2024-11-27 14:38 | Outpatient (REF) | payer OTHER, SELFPAY ==
--- NOTE | ~2024-11-27 | CT_ITS ---
EXAMINATION: CT ANGIOGRAM CHEST CLINICAL INFORMATION: Thoracic aortic dictation. COMPARISON: None available. TECHNIQUE: Multiple axial images were obtained through the chest after the administration of 100 mL of Omnipaque 350 intravenous contrast. Extensive vascular post-processing including two-dimensional and three-dimensional reformatted images were created and reviewed on an independent workstation. This CT examination was performed using dose optimization techniques as appropriate, variously including the following: *Automated exposure control *Adjustment of mA and/or kV according to patient size (this includes techniques or standardized protocols for targeted exams where dose is matched to indication/reason for exam; i.e. extremities or head) *Use of iterative reconstruction technique FINDINGS: VASCULAR: AORTA: No evidence of dissection or acute aortic syndrome. Mild calcific atheromatous plaque. The sinuses of Valsalva measure 4.6 x 4.7 cm. At the sinotubular junction, the aorta measures 4.1 cm in diameter. The ascending aorta measures 4.7 cm in diameter. The proximal aortic arch measures 4.1 cm in diameter. The mid aortic arch measures 3.0 cm in diameter The distal aortic arch just past the left subclavian artery origin measures 2.8 cm in diameter. The proximal descending aorta at the level of the main pulmonary artery measures 3.0 cm in diameter. The mid descending aorta measures 2.8 cm in diameter. The distal descending aorta measures 2.5 cm in diameter. The aorta at the aortic hiatus measures 2.4 cm in diameter. The imaged aorta appears normal caliber. MAIN PULMONARY ARTERY: Enlarged, measuring 3.8 cm in diameter. This may indicate increased pulmonary pressures. GREAT VESSELS: There is a 2 vessel branching pattern. Great vessels are widely patent without significant atheromatous disease. HEART: There is mild cardiac enlargement. There is no pericardial effusion. There are no significant coronary calcifications identified. LUNGS: Lungs are well expanded, and clear bilaterally. There is no consolidation or abnormal opacity. There is no interstitial abnormality. Small airways appear normal. There is no pleural effusion or pneumothorax. There is no suspicious pulmonary nodule. PLEURA: There is no pleural effusion. No pleural mass or thickening. MEDIASTINUM: Thyroid is partially imaged. No abnormality. No esophageal abnormality. No mass or abnormal lymph nodes. Central airways are patent and normal. AXILLA/CHEST WALL: No lymphadenopathy or mass. Large body habitus. UPPER ABDOMEN: Evaluation of the upper abdomen limited due to beam starvation artifact. No abnormalities demonstrated. OSSEOUS STRUCTURES: No suspicious lytic or blastic bone lesion. There are degenerative changes of the spine. CT/CT angio chest aorta IMPRESSION: 1. Aneurysmal dilatation of the ascending aorta, measuring up to 4.7 cm diameter. No evidence of dissection or acute aortic syndrome. No significant atheromatous plaque. 2. Main pulmonary artery is dilated, measuring 3.8 cm in diameter. This likely indicates increased pulmonary pressures. 3. Mild to moderate cardiac enlargement. 4. Lungs are clear without active pulmonary disease. Electronically signed by: Jason Ellis MD 11/27/2024 04:01 PM EDT
[2024-11-27] MEDS: iohexoL 350 MG/ML 100 ML INFUS..BTL IV (15:43)
== END 2024-11-27 14:39 | disposition home or self-care (01) ==
LOC: HO.CT 14:38
PROVIDERS: PCP Internal Medicine; Visit Provider Nurse Practitioner Family
DX: I77.810 Thoracic aortic ectasia (principal)
CPT/HCPCS: 71275; Q9967

== ENCOUNTER → 2024-11-27 14:39 | Outpatient (BNV) | payer OTHER, SELFPAY | PROVIDERS: PCP Internal Medicine; Visit Provider Radiology Diagnostic Radiology | DX: I71.21 Aneurysm of the ascending aorta, without rupture (principal); I51.7 Cardiomegaly | CPT/HCPCS: 71275 ==

== ENCOUNTER → 2024-12-04 12:40 | Outpatient (REF) | payer OTHER, SELFPAY ==
--- NOTE | 2024-12-04 12:42 | HM_ITS ---
* Total monitoring time 3 days. * Underlying rhythm is atrial fibrillation with an average rate of 57/Min. * About 17 pauses noted, longest 3.9 seconds at 10:47; does not reach significance. * Ventricular ectopy noted with a burden of 1.2%. Rare couplets. * No patient markers or diary events. MTDD
== END ==
LOC: HO.CARD 12:40
PROVIDERS: PCP Internal Medicine; Visit Provider Nurse Practitioner Family
DX: I48.19 Other persistent atrial fibrillation (principal)
CPT/HCPCS: 93242

== ENCOUNTER → 2024-12-04 12:42 | Outpatient (BNV) | payer OTHER, SELFPAY | PROVIDERS: PCP Internal Medicine; Visit Provider Internal Medicine | DX: I48.91 Unspecified atrial fibrillation (principal); I49.3 Ventricular premature depolarization | CPT/HCPCS: 93244 ==

== ENCOUNTER 2024-12-08 12:40 | Outpatient (AMB) | payer OTHER, SELFPAY ==
--- NOTE | 2024-12-08 12:52 | A.OFFVIS_ITS ---
Intake Visit Reasons: MRI review Per Dr. 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 At the same time, he was noted to be with atrial fibrillation, which was new for him. With that diagnosis, there was possibility of a stroke causing facial weakness. An MRI of brain was considered but because of his body weight he could not have the MRI at [facility]. On 11/26/2024 he had the MRI of brain at [facility], which, according to the report, revealed nonspecific curvilinear and nodular leptomeningeal enhancement along the surface of the inferior lateral right eliazar and brachial pontis, as well as cisternal segments of 7th and 8th cranial nerves. He said that his right ear was somewhat full and his hearing was somewhat affected. He did not have any headache. No other new symptoms. He was given dose of prednisone and valacyclovir when he was in hospital. Facial weakness has somewhat improved. 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 Kidney calculi Asthma Surgical History Hx of colonoscopy (~02/04/12) Family History Mother Congestive heart failure Father Lung cancer Social History Household Members: Spouse Housing: House Do you presently have visiting nurse or other home services: No Alcohol intake: current Alcohol intake frequency: does not drink Patient Tobacco Use Status: Never used Tobacco e-Cigarette/Vaping Use: Never Used Second Hand Smoke Exposure: Yes service: No Current occupational status: employed Current occupation: [employer] Current occupational exposures/hazards: No Cognitive needs: No Hearing needs: No Vision needs: No Review of Systems Narrative - ENT: Reports right ear fullness and altered hearing - Neurological: Reports right-sided facial weakness, denies headache - General: Denies headache, Notes mild imbalance - Musculoskeletal: Denies joint or muscle pain - Renal/Urinary: No issues reported Assessment & Plan Assessment & Plan (1) Facial neuropathy: Comment: MRI brain [facility] at [facility] in Nov 2024: Nonspecific curvilinear and nodular leptomeningeal enhancement along the surface of the inferior lateral right eliazar and brachial pontis, as well as cisternal segments of 7th and 8th cranial nerves. (reported) Code(s): G51.9 - Disorder of facial nerve, unspecified Category: Medical (2) Leptomeningeal enhancement on MRI of brain: Code(s): R90.89 - Other abnormal findings on diagnostic imaging of central nervous system Category: Medical Plan During this visit, I confirmed the diagnosis of Ocampo?s Palsy, supported by imaging and recent clinical history showing facial nerve inflammation but not attributable to vascular events. Potential inflammatory or infectious causes, p articularly Lyme disease, were discussed, and serological testing is underway. Risks of spinal procedures were considered against anticoagulation challenges; thus, I opted for ongoing symptom monitoring. Anticoagulation management with Eliquis was reviewed in light of atrial fibrillation. MRI findings raise suspicion for ongoing inflammation, justifying further infectious workup. Consent was implicitly noted for lab testing, and I ensured the patient understood the implications of ongoing management strategies. A follow-up schedule will depend on lab results, and the patient was apprised of red-flag symptoms that necessitate urgent review. Orders: Orders HIV Ab/Ag Today G51.9 - Disorder of facial nerve, unspecified, R90.89 - Other abnormal findings on diagnostic imaging of central nervous system Lyme IgG/IgM w/reflex to WB Today G51.9 - Disorder of facial nerve, unspecified, R90.89 - Other abnormal findings on diagnostic imaging of central nervous system Syphilis Screen Today G51.9 - Disorder of facial nerve, unspecified, R90.89 - Other abnormal findings on diagnostic imaging of central nervous system Immunofixation Pnl, Serum Today G51.9 - Disorder of facial nerve, unspecified, R90.89 - Other abnormal findings on diagnostic imaging of central nervous system Protein Electrophoresis, Serum Today G51.9 - Disorder of facial nerve, unspecified, R90.89 - Other abnormal findings on diagnostic imaging of central nervous system Coding Level of Care Code Est Pt Level 5 (64826) Diagnoses Facial neuropathy G51.9 Leptomeningeal enhancement on MRI of brain R90.89
== END 2024-12-08 13:22 | disposition home or self-care (01) ==
LOC: HO.HSM 12:41
PROVIDERS: PCP Internal Medicine; Visit Provider Psychiatry & Neurology Neurology
DX: G51.9 Disorder of facial nerve, unspecified (principal); R90.89 Other abnormal findings on diagnostic imaging of central nervous system
CPT/HCPCS: 99214

== ENCOUNTER 2024-12-08 12:40 | Outpatient (REF) | payer OTHER, SELFPAY ==
--- OUTSIDE RECORDS SUMMARY | 2024-12-08 17:42 | XMS_ITS | Data Portability ---
Author Organization [place] - [facility], Allergy Address [address] [place] [address] Care Team Providers Care Telephone Sales Agent Name Role Phone RHYS GARCIA Primary Care Provider [phone] Assessment Encounter Date Assessment Date Assessment LastModified by Organization Details LastModified Time 12/08/2024 12/08/2024 Patient with acute onset symptoms affecting the facial nerve, vestibular nerve, and auditory nerve about 1 month ago, which is associated with abnormal enhancement along the surface of the inferior lateral right eliazar and middle cerebellar peduncle affecting the region of the 7th and 8th cranial nerve root entry. It is unclear to me what this represents, whether this is inflammatory or neoplastic in nature. Fortunately he has a visit with a neurologist coming up later this afternoon. It will be interesting to see whether additional treatment in the form of steroids will be recommended, but I will leave that to neurology. There would be no role for intratympanic steroid therapy in light of the likely site of injury. We discussed the possibility that the hearing may recover over time, but it also may progress, it is difficult to predict. I would recommend follow-up audiogram in 3 months to see if the speech discrimination has recovered in a way that he would be a candidate for amplification. We did discuss the likelihood that he would be a good candidate for amplification regardless based on his high-frequency hearing loss in the left ear. [email or web address] Not available 12/08/2024 10:36:44 Plan of Treatment Reminders Order Date Submit Date Provider Last Modified By Organization Details Last Modified Time Details Appointments New Patient 20 2024 09:10A M MARILU MITCHELL MD Not available Not available Not available Hearing Test First 2025 01:00P M Hearing Test Not available Not available Not available Establish ed 10 2025 01:30P M MARILU MITCHELL MD Not available Not available Not available Lab None recorded. Referral None recorded. Procedures None recorded. Surgeries None recorded. Imaging None recorded. Medication Orders None recorded. Patient TargetsNo targets recorded. Patient InstructionsNo instructions recorded. Reason for Referral None Reported. Results Created Date Observation Date Name Description Value Unit Range Abnormal Flag Note LastModifiedBy Organization Detail LastModifiedTime 12/09/19 25 audio gram No observ ation record ed. BARCODE Not Available 2024 14:19:55 Result Notes None recorded. Problems Name Problem SNOMED Code Status Onset Date Resolution Date Notes Provider Name and Address Organization Details Recorded Time Sensorineur al hearing loss of bilateral ears 203855437 Active 2024 FLAQUITO BENNETT [address] [facility],[address] [facility], [place], [address], [facility] - [facility] 09:52:39 Bilateral tinnitus 7099947802672 Active 2024 MARILU MITCHELL MD [address] [facility], E [facility], [place], [address], [facility] - [facility] 5 10:31:17 [place] palsy of right side of face 6623858604283 9108 Active 2024 MARILU MITCHELL MD [address] [facility],[address] [facility], [place], [address], [place] - [facility] 5 10:32:36 Epidemic vertigo 582544157 Active 2024 MARILU MITCHELL MD [address] [facility], E [facility], [place], [address], [facility] - [facility] 5 10:33:23 Sensorineur al hearing loss of right ear 2523955722 Active 2024 MARILU MITCHELL MD [address] [facility], E [facility], [place], [address], [place] - [facility] 5 10:33:49 Problem Notes None recorded. Procedures Surgical History Date Name Laterality Status Provider Name and Address Organization Details Recorded Time 12/08/2024 Comp Audio with Tymps - 74556 & [address], AUD [address] [facility], [place], [address], [facility] - [facility] 12/08/2024 10:04:52 Imaging Results None recorded. Procedure Notes None recorded. Medical Equipment None Reported. Allergies No known drug allergies Medications Name Sig Start Date Stop Date Status Note LastModified by Organization Details LastModified Time atorvastati n 80 mg tablet TAKE 1 TABLET BY MOUTH AT BEDTIME 12/08 completed Not Available Not Available Not Available trazodone 50 mg tablet TAKE 1 TABLET BY MOUTH AT BEDTIME NEEDED FOR SLEEP active Not Available Not Available No t Available cetirizine 10 mg tablet TAKE 1 TABLET BY MOUTH DAILY IN THE MORNING FOR SNEEZING OR ITCH active Not Available Not Available No t Available valacyclovi r 1 gram tablet TAKE 1 TABLET BY MOUTH THREE TIMES A DAY FOR 7 DAYS 12/08 completed Not Available Not Available Not Available FreeStyle Lancets 28 gauge TEST FOUR TIMES DAILY OR DIRECTED active Not Available Not Available No t Available prednisone 20 mg tablet TAKE 3 TABLETS BY MOUTH ONCE DAILY FOR 5 DAYS 12/08 completed Not Available Not Available Not Available amlodipine 5 mg tablet TAKE 1 TABLET BY MOUTH DAILY active Not Available Not Available No t Available levothyroxi ne 75 mcg tablet active Not Available Not Available Not Available esomeprazol e magnesium 40 mg capsule,del ayed release TAKE 1 CAPSULE BY MOUTH EVERY DAY active Not Available Not Available No t Available montelukast 10 mg tablet TAKE 1 TABLET BY MOUTH AT BEDTIME active Not Available Not Available No t Available furosemide 20 mg tablet TAKE 1 TABLET BY MOUTH EVERY MORNING NEEDED FOR SWELLING active Not Available Not Available No t Available amoxicillin 875 mg-potassiu m clavulanate 125 mg tablet TAKE 1 TABLET BY MOUTH TWICE DAILY FOR 10 DAYS 12/05 completed Not Available Not Available Not Available oxycodone 5 mg tablet TAKE 1 TABLET BY MOUTH TWICE DAILY FOR 7 DAYS NEEDED FOR PAIN OR SEVERE PAIN 12/08 completed Not Available Not Available Not Available Alcohol Prep Pads USE DIRECTED FOUR TIMES DAILY BEFORE MEALS AND AT BEDTIME active Not Available Not Available No t Available metoprolol tartrate 25 mg tablet TAKE 1 TABLET BY MOUTH EVERY DAY HOLD IF BLOOD PRESSURE LESS THAN 90/60 active Not Available Not Available No t Available levalbutero l HFA 45 mcg/actuati on aerosol inhaler INHALE 2 PUFFS BY MOUTH EVERY 4 TO 6 HOURS NEEDED FOR SHORTNESS OF BREATH OR WHEEZING 12/08 completed Not Available Not Available Not Available FreeStyle Lite Meter kit USE DIRECTED active Not Available Not Available No t Available FreeStyle Lite Strips TEST FOUR TIMES DAILY active Not Available Not Available No t Available Humalog KwikPen (U-100) Insulin 100 unit/mL subcutaneou s active Not Available Not Available Not Available cholecalcif pravin (vitamin D3) 50 mcg (2,000 unit) capsule TAKE 1 CAPSULE BY MOUTH DAILY active Not Available Not Available No t Available Eliquis 5 mg tablet TAKE 1 TABLET BY MOUTH TWICE DAILY active Not Available Not Available No t Available Dupixent 300 mg/2 mL subcutaneou s pen injector active Not Available Not Available Not Available Trelegy Ellipta 200 mcg-62.5 mcg-25 mcg powder for inhalation INHALE 1 PUFF BY MOUTH DAILY active Not Available Not Available No t Available Melani Pen Needle 32 gauge x 5/32 USE FOUR TIMES DAILY OR DIRECTED 12/08 completed Not Available Not Available Not Available Vitals Date Recorded Body height Body weight Provider Name and Address Organization Details Last Updated DateTime 12/08/2024 182.88 cm 322915.72 g Radha Moody [place] - [facility] 12/08/2024 09:06:48 Social History None recorded. Functional Status None recorded. Mental Status None recorded. Family History Nothing Reported. Medical History Condition Response Thyroid Problems Y Hypertension Y Asthma Y High Cholesterol Y GERD/Reflux Y Past Encounters Encounter ID Performer Location Encounter Start Date Encounter Closed Date Diagnosis/Indication Diagnosis SNOMED-CT Code Diagnosis ICD10 Code Diagnosis IMO Codes Diagnosis Note [id number] MARILU MITCHELL MD [facility] [address] [address] 12/08/2024 08:46:37 12/08/2024 10:35:40 Sensorineural hearing loss of bilateral ears 948153095 H90.3 [id number] Right Ear:Normal hearing through 1K Hz sloping to a profound SNHL with poor speech discrimina tion.Type A tympanogra m.Left Ear:Normal hearing through 1K Hz sloping to a moderate SNHL with excellent speech discrimina tion.Type A tympanogra m. Bilateral tinnitus 88895 95854 102 H93.13 853435 [place] pals y of right side of face 4164538180 5527046 G51.0 3071962763 Epidemic vertigo 0141419 01 H81.21 96083614 Sensorineu ral hearing loss of right ear 6142884477 H91.21 [id number] Health Concerns Section Related Observation LastModified by Organization Detai ls LastModified Time None Recorded Concern Status LastModified by Organization Details LastModified Time None Recorded Advance Directives Directive None Recorded Payers Insurance Date Sequence Insurance Name Policy Number Policy Amato Covered Member ID Amato Member ID Guarantor Name 12/08/2024 1 [facility] Kali Flores Alexander [id number] Kali Munoz Notes Date Note Type Note Provider Name and Address Organization Details Recorded Time 12/08/2024 text/html Patient comes in today for evaluation of his right ear. 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 Patient was treated with prednisone 60 mg for 5 days. Patient also given antiviral therapy.Patient noted that he had nonlocalizing tinnitus for about the week before the onset of the Ocampo's palsy. He still has the tinnitus, but it does seem to go away when he lays down to go to bed at night. Patient did have an MRI scan of the brain and internal auditory canals which showed a 9 x 9 x 8 mm curvilinear and somewhat nodular enhancement along the surface of the inferior lateral right eliazar and middle cerebellar peduncle affecting the region of the 7th and 8th cranial nerve root entry. There was some subtle nodular enhancement extending into the cisternal segments of the 7th and 8th cranial nerves. Patient noted no double vision at the time of the Ocampo's palsy. Patient's balance was significantly affected initially, needing to hold onto things to walk, but that has settled down but has not completely gone away. The hearing in the right ear seems to be the same level of reduction as it was when it started. 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 MARILU MITCHELL MD [address] [place] [address], [place], [address], [facility] - [facility] 12/08/2024 10:37:37
--- OUTSIDE RECORDS SUMMARY | 2024-12-08 17:42 | XMS_ITS | Continuity of Care Document ---
Author Organization [place] - [facility], [facility] Address [address] [place] [address] Care Team Providers Care Oceanography Teacher Name Role Phone RHYS GARCIA Primary Care Provider Assessment Encounter Date Assessment Date Assessment LastModified [...] high-frequency hearing loss in the left ear. [email or web address] Not available 12/08/2024 10:36:44 Plan of Treatment Reminders Order Date Submit Date Provider Last Modified By Organization Details Last Modified Time Details Appointments New Patient 20 2024 09:10A M MARILU MITCHELL MD Not available Not available Not available Hearing Test First 02/03/ 2026 01:00P M Hearing Test Not available Not [...] Flag Note LastModifiedBy Organization Detail LastModifiedTime 12/09/19 audio gram No observ ation record ed. BARCODE Not Available 2024 14:19:55 Result Notes None recorded. Problems Name Problem SNOMED Code Status Onset Date Resolution Date Notes Provider Name and Address Organization Details Recorded Time Sensorineur al hearing loss of bilateral ears 427875531 Active 2024 FLAQUITO BENNETT [address] [facility],[address], [facility] [place], [address], [place] - [facility] 09:52:39 Bilateral tinnitus 1758012326173 Active 2024 MARILU MITCHELL MD 100 [facility], E [facility], [place], [address], [place] - [facility] 5 10:31:17 [place] palsy of right side of face 9505150263873 9108 Active 2024 MARILU MITCHELL MD [address] [facility],[address], [place], [address], [place] - [facility] 10:32:36 Epidemic vertigo 483869944 Active 2024 MARILU MITCHELL MD 100 [facility], [address], [place], [address], [place] - [facility] 10:33:23 Sensorineur al hearing loss of right ear 1419931917 Active 2024 MARILU MITCHELL MD 100 [facility],[address], [place], [address], [place] - [facility] 5 10:33:49 Problem Notes None recorded. Procedures Surgical History Date Name Laterality Status Provider Name and Address Organization Details Recorded Time 12/08/2024 Comp Audio with Tymps - 13974 & [address], [facility] 100 [facility] 100, [place], [address], [facility] - [facility] 12/08/2024 10:04:52 Imaging Results None recorded. [...] Details Last Updated DateTime 12/08/2024 182.88 cm 742743.72 g Radha Moody [place] - [facility] 12/08/2024 09:06:48 Social History None recorded. Functional Status None recorded. Mental Status None recorded. Family History Nothing Reported. Medical History Condition Response Thyroid Problems Y Hypertension Y Asthma Y High Cholesterol Y GERD/Reflux Y Past Encounters Encounter ID Performer Location Encounter Start Date Encounter Closed Date Diagnosis/Indication Diagnosis SNOMED-CT Code Diagnosis ICD10 Code Diagnosis IMO Codes Diagnosis Note [id number] MARILU MITCHELL MD [facility] [address] [address] 12/08/2024 08:46:37 12/08/2024 10:35:40 Sensorineural hearing loss of bilateral ears 475459254 H90.3 [id number] Right Ear:Normal hearing through 1K Hz sloping to a profound SNHL with poor speech discrimina tion.Type A tympanogra m.Left Ear:Normal hearing through 1K Hz sloping to a moderate SNHL with excellent speech discrimina tion.Type A tympanogra m. Bilateral tinnitus 81485 17121 102 H93.13 001658 [place] pals y of right side of face 7063688519 9122519 G51.0 8643449162 Epidemic vertigo 3208058 01 H81.21 85291721 Sensorineu ral hearing loss of right ear 1344522150 H91.21 [id number] Health Concerns Section Related Observation LastModified by Organization Detai ls LastModified Time None Recorded Concern Status LastModified by Organization Details LastModified Time None Recorded Payers Encounter Date Sequence Insurance Name Policy Number Policy Amato Covered Member ID Amato Member ID Guarantor Name 12/08/2024 1 [facility] Kali Flores Alexander [id number] Kali Munoz Notes Date Note Type [...] use of hearing protection. MARILU MITCHELL MD [address] [place] [address], [place], [address], [facility] - [facility] 12/08/2024 10:37:37
[2024-12-09 03:20] LABS: Syphilis Screen Nonreactive (Nonreactive)
[2024-12-09 03:36] LABS: HIV Num 1 0.08 S/CO (0.00-0.99)
[2024-12-09 05:48] LABS: Lyme Abs Screen <0.90 index
[2024-12-10 18:53] LABS: Prot Elec - Albumin 3.6 g/dL (3.8-4.8); Prot Elec - Alpha1 0.3 g/dL (0.2-0.3); Prot Elec - Alpha2 1.0 g/dL (0.5-0.9); Prot Elec - Beta 1 0.6 g/dL (0.4-0.6); Prot Elec - Beta 2 0.8 g/dL (0.2-0.5); Prot Elec - Gamma 1.4 g/dL (0.8-1.7); Prot Elec - Total Protein 7.8 g/dL (6.1-8.1)
== END 2024-12-08 12:41 | disposition home or self-care (01) ==
LOC: HO.LAB 12:40
PROVIDERS: Absent Provider Nurse Practitioner Family; PCP Internal Medicine; Visit Provider Psychiatry & Neurology Neurology
DX: G51.9 Disorder of facial nerve, unspecified (principal); R90.89 Other abnormal findings on diagnostic imaging of central nervous system; Z01.84 Encounter for antibody response examination
CPT/HCPCS: 36415; 82784; 84165; 86334; 86617; 86618; 86780; 87389

== ENCOUNTER 2024-12-14 11:17 | Outpatient (AMB) | payer OTHER, SELFPAY ==
[2024-12-14 11:25] VITALS: BP 132/60; PULSE 43; RESP 18; TEMP 36; O2SAT 98; BMI 59.6
--- NOTE | 2024-12-14 11:25 | MHC.PC.OV ---
Vital Signs 12/14/24 11:25 Height 6 ft Weight 439 lb 2.573 oz BMI 59.6 BP 132/60 Blood Pressure Location Lt brachial Position Sitting Respiration 18 Pulse 43 L Pulse Source Pulse Oximeter Temp 96.8 F Temp Source Temporal Artery Scan Pulse Oximetry (%) 98 Oxygen Delivery Method Room Air Intake Visit Reasons: 1 mo follow up per Dr. Horn Field Service Analyst Required: No Accompanied by: Self / Same As Patient Allergies No Known Allergies Allergy (Verified 12/14/24 11:26) Medication List - Last Reconciled 12/14/24 by Valeria Ritchie MD alcohol swabs 1 pad topical QIDACHS amlodipine 5 mg PO DAILY apixaban (Eliquis) 5 mg PO BID atorvastatin 80 mg PO BEDTIME 90 days blood sugar diagnostic (FreeStyle Lite Strips) Test four times a day or as directed. blood-glucose meter (FreeStyle Lite Meter kit) As Directed cetirizine 10 mg PO DAILY cholecalciferol (vitamin D3) 50 mcg PO DAILY 90 days dupilumab (Dupixent) 300 mg subcut Q2W furosemide 20 mg PO DAILY PRN lancets (FreeStyle Lancets) Test four times a day or as directed. levothyroxine 75 mcg PO DAILY@0600 metoprolol succinate ER 25 mg PO DAILY 90 days montelukast 10 mg PO BEDTIME pen needle, diabetic Use four times a day or as directed. Tobacco use date assessed: 12/14/24 Fall risk assessment: No Falls in past year Last assessed Fall Risk: 12/14/24 Dental Screening Dental Screen Date: 12/14/24 Did you have a dental visit in the last 12 months?: Yes Did you have a dental problem in the last 6 months where you did not have access to dental care?: No Was dental information given to patient?: Patient has dentist HPI HPI Comments History of Present Illness Details The patient is a 64-year-old male presenting for a one-month follow-up after a recent hospitalization for a stroke and cardiac issues. Following these events, he was started on new medications including metoprolol, atorvastatin, and Eliquis twice daily. Since his last visit with Dr. Perez, the patient was seen by neurology Dr. Gaffney, and a semiconductor wafers etcher stripper, Dr. Kerns. 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 However, he notes residual diminished hearing in his right ear. A brain MRI has been performed, and it showed nonspecific curvilinear and nodular leptomeningeal enhancement which is suggestive of leptomeningeal inflammatory, infectious process or carcinematoseous. The patient reports measuring his blood pressure four times a day at home, with usual readings around 119/60 mmHg and 120/60 mmHg. He notes a reading of 119/62 mmHg one hour before the current visit. His BP today is 132/60 so amlodipine was increased to 10 mg daily. The patient also has a history of severe bilateral knee pain, which is exacerbated by rainy weather. He states Tylenol is ineffective, he cannot take ibuprofen, and tramadol causes somnolence. He has previously received a prescription for a small quantity of oxycodone for this pain. The patient is currently out of work and is trying to stay active by walking. He reports losing weight, feeling good, and sleeping better. He has a sleep study scheduled for this . 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 Kidney calculi Asthma Surgical History Hx of colonoscopy (~02/04/12) Family History Mother Congestive heart failure Father Lung cancer Social History Household Members: Spouse Housing: House Do you presently have visiting nurse or other home services: No Alcohol intake: current Alcohol intake frequency: does not drink Patient Tobacco Use Status: Never used Tobacco e-Cigarette/Vaping Use: Never Used Second Hand Smoke Exposure: Yes service: No Current occupational status: employed Current occupation: [employer] Current occupational exposures/hazards: No Cognitive needs: No Hearing needs: No Vision needs: No Questionnaire Thrive Questionnaire Date Thrive assessed: 09/21/24 I am a: Patient What is your living situation today?: I have a steady place to live Within the past 12 months, did the food you bought not last and you didn't have the money to get more?: Never true Within the past 12 months, did you worry whether your food would run out before you got money to buy more?: Never true Do you have trouble paying for medicines?: No Do you have trouble getting transportation to medical appointments?: No Do you have trouble paying your heating and electricity bill?: No Do you have trouble taking care of your child, family member or friend?: I choose not to answer this question Do you have trouble with day-to-day activities such as bathing, preparing meals, shopping, managing finances, etc.?: No Are you currently unemployed and looking for a job?: No Are you interested in more education?: No Please select the resources that you would like help with: None Currently or been in a relationship where the following occur: No concerns reported THRIVE Score: 0 MARILEE-7 AMB Questionnaire MARILEE-7 Date MARILEE - 7 assessed: 09/28/24 Source: Developed by Drs. Chon Wilson, Shawna Tijerina, Juan Judge and colleagues, with an educational abi from [employer]. Review of Systems Const Details: Positives besides what was mentioned in HPI are in BOLD Constitutional: No Weight Change, No Fever, No Chills, No Night Sweats, No Fatigue, No Malaise ENT/Mouth: No Hearing Changes, No Ear Pain, No Nasal Congestion, No Sinus Pain, No Hoarseness, No sore throat, No Rhinorrhea, No Swallowing Difficulty Eyes: No Eye Pain, No Swelling, No Redness, No Foreign Body, No Discharge, No Vision Changes Cardiovascular: No Chest Pain, No SOB, No PND, No Dyspnea on Exertion, No Orthopnea, No Claudication, No Edema, No Palpitations Respiratory: No Cough, No Sputum, No Wheezing, No Smoke Exposure, No Dyspnea Gastrointestinal: No Nausea, No Vomiting, No Diarrhea, No Constipation, No Pain, No Heartburn, No Anorexia, No Dysphagia, No Hematochezia, No Melena, No Flatulence, No Jaundice Genitourinary: No Dysmenorrhea, No DUB, No Dyspareunia, No Dysuria, No Urinary Frequency, No Hematuria, No Urinary Incontinence, No Urgency, No Flank Pain, No Urinary Flow Changes, No Hesitancy Musculoskeletal: No Arthralgias, No Myalgias, No Joint Swelling, No Joint Stiffness, No Back Pain, No Neck Pain, No Injury History Skin: No Skin Lesions, No Pruritis, No Hair Changes, No Breast/Skin Changes, No Nipple Discharge Neuro: No Weakness, No Numbness, No Paresthesias, No Loss of Consciousness, No Syncope, No Dizziness, No Headache, No Coordination Changes, No Recent Falls Psych: No Anxiety/Panic, No Depression, No Insomnia, No Personality Changes, No Delusions, No Rumination, No SI/HI/AH/VH, No Social Issues, No Memory Changes, No Violence/Abuse Hx., No Eating Concerns Heme/Lymph: No Bruising, No Bleeding, No Transfusions History, No Lymphadenopathy Endocrine: No Polyuria, No Polydipsia, No Temperature Intolerance Physical exam (Primary Care) Vital Signs: Last Vital Signs Temp 96.8 F 12/14/24 11:25 Pulse 43 L 12/14/24 11:25 Resp 18 12/14/24 11:25 BP 132/60 12/14/24 11:25 Pulse Ox 98 12/14/24 11:25 Oxygen Delivery Method Room Air 12/14/24 11:25 BMI result Body Mass Index 59.6 Tobacco/Smoking Status: Tobacco use Status Tobacco use date assessed 12/14/24 12/14/24 11:36 Patient Tobacco Use Status Never used Tobacco 12/14/24 11:36 e-Cigarette/Vaping Use Never Used 12/14/24 11:36 Thrive Assessment: Date of Thrive Assessment Date Thrive assessed 09/21/24 12/14/24 11:36 Currently or been in a relationship where the following occur: No concerns reported Const Other: Pertinent findings are in BOLD GENERAL APPEARANCE NAD, activity normal for age, well developed/ well nourished, no cyanosis, pallor, or diaphoresis. EYES lids/conjunctiva normal. EARS/NOSE/THROAT Mucous membranes moist, nares normal, lips/teeth normal uvula midline without oral pharyngeal erythema, exudate or swelling TMs normal bilaterally. No lymphangitis/lymphedema. HEAD/NECK normocephalic atraumatic, no facial trauma, neck is supple. RESPIRATORY respiratory effort normal, speaks in full sentences, no tripod position, no accessory muscle use. Lungs clear to auscultation without rhonchi, wheezes, rales CARDIAC Regular rate and rhythm, no edema. ABDOMINAL Soft, ND/NT. No evidence of fluid wave. No pulsatile masses on exam, rebound tenderness, Dan sign or pain over Mcburney's point. MUSCLES/EXTREMITIES No abnormal range of motion, no swelling. SKIN Warm, pink and dry. No rashes, dermatoses, petechiae or lesions. NEUROLOGICAL Speech is clear and appropriate. Normal level of consciousness. Gait and coordination are normal. 5/5 strength in all extremities. PSYCH Normal mood and affect. Judgement/competence is appropriate Coding Level of Care Code Est Pt Level 5 (61050) Diagnoses Cerebrovascular accident (CVA) due to embolism of cerebral artery I63.40 CVA mechanism: embolism Precerebral and cerebral artery: unspecified cerebral artery Ascending aorta dilation I77.810 Cardiomegaly I51.7 Obstructive sleep apnea syndrome G47.33 Sleep apnea type: obstructive Primary hypertension I10 Hypertension type: primary hypertension Chronic pain of both knees M25.561; M25.562; G89.29 Chronicity: chronic Laterality: bilateral Time Spent (min) 40 Assessment & Plan Assessment & Plan (1) CVA (cerebrovascular accident): Code(s): I63.9 - Cerebral infarction, unspecified Category: Medical Qualifiers: CVA mechanism: embolism Precerebral and cerebral artery: unspecified cerebral artery Qualified Code(s): I63.40 - Cerebral infarction due to embolism of unspecified cerebral artery Plan: Patient seen in clinic today for follow-up regarding his recent stroke. Since his last clinic visit he was evaluated by neurology who is suspecting Ocampo's palsy. Pending Neurology F-U: Lyme IgM, IgG w/reflex to WB, Syphillis screen, Serum Immunofixation and protein elctrophoresis. Has F-U with neurology: 12/21/2024. (2) Ascending aorta dilation: Code(s): I77.810 - Thoracic aortic ectasia Category: Medical Plan: Patient was seen by Cardiology recently and they recommeded good BPP control and advised the patient not to lift heavy objects. Potential vascular surgery referral if indicated by cardiology. F-U with cardiology is not scheduled yet. (3) Cardiomegaly: Code(s): I51.7 - Cardiomegaly Category: Medical Plan: Seen by cardiology in clinic who recommended potential ischemic W-U. F-U with cardiology is not scheduled yet. (4) Sleep apnea: Code(s): G47.30 - Sleep apnea, unspecified Category: Medical Qualifiers: Sleep apnea type: obstructive Qualified Code(s): G47.33 - Obstructive sleep apnea (adult) (pediatric) Plan: Sleep study Dec 17. (5) HTN (hypertension): Code(s): I10 - Essential (primary) hypertension Category: Medical Qualifiers: Hypertension type: primary hypertension Qualified Code(s): I10 - Essential (primary) hypertension Plan: Increased the patient Amlodipine dose to 10 mg Daily from 5 mg as his BP is 132 in clinic today. Goal is <130 mmHg. Advised patient to bring his BP log with his next appointment with Dr. Guadalupe. (6) Knee pain: Code(s): M25.569 - Pain in unspecified knee Category: Medical Qualifiers: Chronicity: chronic Laterality: bilateral Qualified Code(s): M25.561 - Pain in right knee; M25.562 - Pain in left knee; G89.29 - Other chronic pain Plan: - The patient experiences severe knee pain, particularly with rain, for which Tylenol is ineffective and he has side effects from tramadol. - Ibuprofen is relatively contraindicated after recent stroke and while on ASA and Eliquiss. - A prescription for 10 pills of oxycodone will be provided for as-needed use for severe pain flares. Patient was prescribed Oxycodone in the past. Plan I discussed the patient's ongoing recovery following his recent stroke and cardiac events. We reviewed that he is appropriately following up with both his neurologist and semiconductor wafers etcher stripper. Due to a blood pressure reading of 132/60 mmHg in the office, I advised increasing his amlodipine dose from 5 mg to 10 mg daily. We addressed his severe knee pain, noting that Tylenol provides no relief and he has experienced side effects with tramadol. I agreed to prescribe a limited quantity of 10 oxycodone pills for him to use as needed during severe pain flares, and he was counseled on the importance of using it only when absolutely necessary. I advised him to keep his next primary care appointment in March, as his specialists are managing his acute issues. I also instructed him to continue monitoring his blood pressure at home and to bring his log to his next visit. Medications: New oxycodone Partial Fill upon patient request. 5 mg PO Q8H PRN 10 caps 0RF pain Changed From amlodipine 5 mg PO DAILY 90 tabs 1RF I10 - Essential (primary) hypertension To amlodipine 10 mg (2 x 5 mg) PO DAILY 90 tabs 1RF I10 - Essential (primary) hypertension
== END 2024-12-14 12:01 | disposition home or self-care (01) ==
LOC: HO.HMCH 11:18
PROVIDERS: PCP Internal Medicine; Visit Provider Internal Medicine
DX: I63.40 Cerebral infarction due to embolism of unspecified cerebral artery (principal); I77.810 Thoracic aortic ectasia; I51.7 Cardiomegaly; G47.33 Obstructive sleep apnea (adult) (pediatric); I10 Essential (primary) hypertension; M25.561 Pain in right knee; M25.562 Pain in left knee; G89.29 Other chronic pain

== ENCOUNTER 2024-12-16 08:45 | Outpatient (AMB) | payer OTHER, SELFPAY ==
--- OUTSIDE RECORDS SUMMARY | 2024-12-14 23:59 | XMS_ITS | Continuity of Care Document ---
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 Name Role Phone Harshad Horn MD Primary Care Physician [facility] [id number] Date(s): 11/14/24 - 12/14/[address] [address]- Attending Physician: Not on Staff, Attending MD Admitting Physician: Not on Staff, Admitting MD Referring Physician: Not on Staff, Referring MD Encounter Type: Pre-Outpt Allergies, Adverse Reactions, Alerts No Known Allergies Medications amLODIPine 2.5 mg oral tablet 2.5 mg, 1, tablet, By Mouth, Daily, Refills 0, Maintenance, 04/15/23 10:06:00 AM EST, Partial fill upon patient request if the prescription is for a schedule II opioid drug. Start Date: 04/15/23 Status: Ordered Medication Dispense Status: Completed Total Allowed Fills: 1 Fills Dispensed: 0 atorvastatin 80 mg oral tablet 1 tablet = 80 mg, By Mouth, Daily, # 30 tablet, 5 Refills, Maintenance, 11/14/24 1:28:00 AM EDT, Tablet, Partial fill upon patient request if the prescription is for a schedule II opioid drug. Start Date: 11/14/24 Status: Ordered Medication Dispense Status: Completed Quantity: 30.0 Unit: tablet Total Allowed Fills: 1 Fills Dispensed: 0 Dupixent Pre-filled Syringe 300 mg/2 mL subcutaneous solution = 300 mg, Subcutaneous Infusion, Once, 0 Refills, Maintenance, 04/15/23 10:10:00 AM EST, Partial fill upon patient request if the prescription is for a schedule II opioid drug. Start Date: 04/15/23 Status: Ordered Medication Dispense Status: Completed Total Allowed Fills: 1 Fills Dispensed: 0 Eliquis 5 mg oral tablet 1 tablet = 5 mg, By Mouth, 2 times a day, # 60 tablet, 0 Refills, Maintenance, 11/13/24 8:57:00 PM EDT, Tablet, Partial fill upon patient request if the prescription is for a schedule II opioid drug. Start Date: 11/13/24 Status: Ordered Medication Dispense Status: Completed Quantity: 60.0 Unit: tablet Total Allowed Fills: 1 Fills Dispensed: 0 esomeprazole 40 mg oral enteric coated capsule 1 capsule = 40 mg, By Mouth, Daily, # 7 capsule, 0 Refills, Maintenance, 11/14/24 1:05:00 PM EDT, ECCtwanule, [facility], Partial fill upon patient request if the prescription is for a schedule II opioid drug., 183, cm, 11/14/24 12:32:00 EDT, Height, 204.5, kg, 11/14/24 1:23:00 EDT, Dry Weight Start Date: 11/14/24 Stop Date: 11/21/24 Status: Ordered Medication Dispense Status: Completed Quantity: 7.0 Unit: capsule Total Allowed Fills: 1 Fills Dispensed: 0 furosemide 20 mg oral tablet 1, capsule, By Mouth, Once, # 1 tablet, Refills 0, Maintenance, 04/15/23 10:10:00 AM EST, Partial fill upon patient request if the prescription is for a schedule II opioid drug. Start Date: 04/15/23 Status: Ordered Medication Dispense Status: Completed Quantity: 1.0 Unit: tablet Total Allowed Fills: 1 Fills Dispensed: 0 levothyroxine 0.075 mg oral tablet 0 Refills, Maintenance, 04/15/23 10:06:00 AM EST, Partial fill upon patient request if the prescription is for a schedule II opioid drug. Start Date: 04/15/23 Status: Ordered Medication Dispense Status: Completed Total Allowed Fills: 1 Fills Dispensed: 0 metoprolol 25 mg oral tablet 25 mg, 1, tablet, By Mouth, Daily, hOLD IF LOW bLOOD PRESSURE LESS THAN 90/60, # 30 tablet, Refills2, Tot. Refills 2, Maintenance, 11/14/24 1:37:00 PM EDT, Route to Pharmacy Electronically, [facility], Partial fill upon patient request if the prescription is for a schedule II opioid drug., 183, cm, 11/14/24 12:32:00 EDT, Height, 204.5, kg, 11/14/24 1:23:00 EDT, Dry Weight Start Date: 11/14/24 Stop Date: 02/12/25 Status: Ordered Medication Dispense Status: Completed Quantity: 30.0 Unit: tablet Total Allowed Fills: 3 Fills Dispensed: 0 montelukast 10 mg oral tablet 10 mg, 1, tablet, By Mouth, Daily in PM, # 30 tablet, Refills 0, Maintenance, 11/13/24 11:04:00 PM EDT, Partial fill upon patient request if the prescription is for a schedule II opioid drug. Start Date: 11/13/24 Status: Ordered Medication Dispense Status: Completed Quantity: 30.0 Unit: tablet Total Allowed Fills: 1 Fills Dispensed: 0 Trelegy Ellipta Inhalation, Daily, 0 Refills, Maintenance, 04/15/23 10:09:00 AM EST, Partial fill upon patient request if the prescription is for a schedule II opioid drug. Start Date: 04/15/23 Status: Ordered Medication Dispense Status: Completed Total Allowed Fills: 1 Fills Dispensed: 0 Vitamin D2 2000 intl units oral capsule 1 capsule = 50 mcg, By Mouth, Daily, 0 Refills, Maintenance, 04/15/23 10:08:00 AM EST, Partial fill upon patient request if the prescription is for a schedule II opioid drug. Start Date: 04/15/23 Status: Ordered Medication Dispense Status: Completed Total Allowed Fills: 1 Fills Dispensed: 0 ZyrTEC 10 mg oral tablet 1 tablet = 10 mg, By Mouth, Daily, 0 Refills, Maintenance, 04/15/23 10:10:00 AM EST, Partial fill upon patient request if the prescription is for a schedule II opioid drug. Start Date: 04/15/23 Status: Ordered Medication Dispense Status: Completed Total Allowed Fills: 1 Fills Dispensed: 0 Problem List Condition Confirmation Course Effective Dates Status Health St atus Informant Severe obesity Confirmed Active Social History Social History Type Response Smoking Status Former smoker, quit more than 30 days ago entered on: 10/23/23 Sex Sex Representation Male (finding) Patient Care team information Care Team Personnel Name: Harshad Horn MD Position: Reference Physician Member Role: PCP Address: [address] [place] [address] [place] [id number] Telecom: Name: Erendira St LPN Position: S RN Member Role: Primary Care Nurse Care Team Related Persons Name: BEAR ZAZUETA Insurance Providers Guarantor name: [facility] Information #: 1 Payer: [facility] POS Payer Identifier: NA Member Number: [id number] Group Number: [id number] Subscriber Identifier: NA Relationship to Subscriber: self Coverage Type: Commercial [facility] Care - HMO Coverage Verification Date: NA Telecom: NA Address:
[2024-12-16 08:55] VITALS: BP 160/100; PULSE 60; O2SAT 97; BMI 59.0
--- NOTE | 2024-12-16 08:55 | A.OFFVIS_ITS ---
Vital Signs 12/16/24 08:55 Height 6 ft Weight 435 lb BMI 59.0 BP 160/100 H Blood Pressure Location Rt brachial Position Sitting Pulse 60 Pulse Source Pulse Oximeter Pulse Oximetry (%) 97 Oxygen Delivery Method Room Air Intake Visit Reasons: COPD Allergies No Known Allergies Allergy (Verified 12/16/24 09:00) HPI HPI COPD: Details: 64-year-old gentleman, nonsmoker, followed for underlying environmental allergies and severe persistent allergic asthma.? He continues on Dupixent, Trelegy, Singulair, Flonase, and albuterol MDI/nebs with good control of his asthma and allergy symptoms.? He denies any recent exacerbations. 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 Kidney calculi Asthma Surgical History Hx of colonoscopy (~02/04/12) Family History Mother Congestive heart failure Father Lung cancer Social History Household Members: Spouse Housing: House Do you presently have visiting nurse or other home services: No Alcohol intake: current Alcohol intake frequency: does not drink Patient Tobacco Use Status: Never used Tobacco e-Cigarette/Vaping Use: Never Used Second Hand Smoke Exposure: Yes service: No Current occupational status: employed Current occupation: [employer] Current occupational exposures/hazards: No Cognitive needs: No Hearing needs: No Vision needs: No Review of Systems Const Denies daytime sleepiness, Denies excessive sweating, Denies fatigue, Denies fever(s), Denies lethargy, Denies malaise, Denies night sweats, Denies snoring and Denies weight loss Eyes Denies blurry vision and Denies itchy eyes ENT Denies nasal congestion, Denies post nasal drip, Denies sinus pain, Denies sinus pressure and Denies other ( Thrush) Card Denies chest pain, Denies pedal edema, Denies dyspnea, Denies orthopnea and Denies paroxysmal nocturnal dyspnea Resp Denies cough, Denies hemoptysis, Denies excessive phlegm production, Denies dyspnea, Denies snoring and Denies wheezing GI Denies abdominal pain and Denies heartburn Musc Denies myalgias, Denies arthralgias and Denies joint swelling Skin/Breast Denies rash Neuro Denies memory loss and Denies seizure-like activity Psych Denies abnormal sleep pattern, Denies anxiety and Denies memory loss Endo Denies excessive sweating, Denies fatigue and Denies heat intolerance Fabio/Lymph Denies easy bruising Aller/Immun Denies itchy eyes, Denies seasonal rhinorrhea and Denies wheezing Physical Exam Vital Signs: Last Vital Signs Pulse 60 12/16/24 08:55 BP 160/100 H 12/16/24 08:55 Pulse Ox 97 12/16/24 08:55 Oxygen Delivery Method Room Air 12/16/24 08:55 BMI result Body Mass Index 59.0 Const General: no acute distress and alert Nutritional Appearance: obese Orientation/consciousness: Other orientation findings ( oriented) HEENT Head: Yes atraumatic Eyes General: appearance normal, both eyes and all related structures Sclerae: sclerae normal EOM: EOMs intact bilaterally Neck Neck: Yes supple Lymphatic: no lymphadenopathy noted Resp Effort & Inspection: normal respiratory effort and no use of accessory muscles Auscultation: clear to auscultation bilaterally Cardio Rate: regular rate Rhythm: regular rhythm Heart sounds: no gallops, no murmurs and no rubs Skin General skin exam: other ( warm) Extrem General: No clubbing, No cyanosis and No edema Assessment & Plan Assessment & Plan (1) Severe persistent allergic asthma: Code(s): J45.50 - Severe persistent asthma, uncomplicated Category: Medical Plan: Well controlled on Dupixent, Trelegy, albuterol MDI, and Singulair. Continue current regimen. (2) Environmental allergies: Code(s): Z91.09 - Other allergy status, other than to drugs and biological substances Category: Medical Plan: Well controlled on Dupixent, Singulair, and Zyrtec. Continue current regimen. Coding Level of Care Code Est Pt Level 4 (31505) Diagnoses Severe persistent allergic asthma J45.50 Environmental allergies Z91.09
--- OUTSIDE RECORDS SUMMARY | 2024-12-16 09:26 | XMS_ITS | Data Portability ---
Author Organization [place] - [facility], Allergy Address [address] [place] [address] Care Team Providers Care Bible Reader Name Role Phone RHYS GARICA Primary Care Provider Assessment Encounter Date Assessment [...] high-frequency hearing loss in the left ear. [email or web address] Not available 12/08/2024 10:36:44 Plan of Treatment Reminders Order Date Submit Date Provider Last Modified By Organization Details Last Modified Time Details Appointments Hearing Test First 2025 01:00P M Hearing [...] Sensorineur al hearing loss of bilateral ears [id number] Active 2024 FLAQUITO BENNETT [address] [facility],[place] [address], [facility], [address], [facility] - [facility] 09:52:39 Bilateral tinnitus 0010617307085 Active 2024 MARILU MITCHELL MD [address] [address], [facility] [place], [address], [facility] - [facility] 5 10:31:17 [place] palsy of right side of face [id number] 9108 Active 2024 MARILU MITCHELL MD [address] [facility],[place] [address], [place], [address], [facility] 5 10:32:36 Epidemic vertigo 103521428 Active 2024 MARILU MITCHELL MD [address] [address], [place], [address], [facility] - [facility] 5 10:33:23 Sensorineur al hearing loss of right ear 2127264878 Active 2024 MARILU MITCHELL MD [address] [facility],[place] [address], [place], [address], [facility] - [facility] 5 10:33:49 Problem Notes None recorded. Procedures Surgical History Date Name Laterality Status Provider Name and Address Organization Details Recorded Time 12/08/2024 Comp Audio with Tymps - 93807 & [address] [facility] [address], [place], [address], [facility] - [facility] 12/08/2024 10:04:52 Imaging Results None recorded. Procedure [...] Details Last Updated DateTime 12/08/2024 182.88 cm 365124.72 g Radha Moody [place] - [facility] 12/08/2024 09:06:48 Social History None recorded. Functional Status None recorded. Mental Status None recorded. Family History Nothing Reported. Medical History Condition Response Thyroid Problems Y Hypertension Y Asthma Y High Cholesterol Y GERD/Reflux Y Past Encounters Encounter ID Performer Location Encounter Start Date Encounter Closed Date Diagnosis/Indication Diagnosis SNOMED-CT Code Diagnosis ICD10 Code Diagnosis IMO Codes Diagnosis Note [id number] MARILU MITCHELL MD [facility] [address] [address] 12/08/2024 08:46:37 12/08/2024 10:35:40 Sensorineural hearing loss of bilateral ears 363277892 H90.3 [id number] Right Ear:Normal hearing through 1K Hz sloping to a profound SNHL with poor speech discrimina tion.Type A tympanogra m.Left Ear:Normal hearing through 1K Hz sloping to a moderate SNHL with excellent speech discrimina tion.Type A tympanogra m. Bilateral tinnitus 02951 82037 102 H93.13 738593 [place] pals y of right side of face 1352300137 0267759 G51.0 [id number] Epidemic vertigo 3029156 01 H81.21 58304610 Sensorineu ral hearing loss of right ear 3195778482 H91.21 [id number] Health Concerns Section Related Observation LastModified by Organization Detai ls LastModified Time None Recorded Concern Status LastModified by Organization Details LastModified Time None Recorded Advance Directives Directive None Recorded Payers Insurance Date Sequence Insurance Name Policy Number Policy Amato Covered Member ID Amato Member ID Guarantor Name 12/08/2024 1 [facility]ali Flores [facility] [id number] [facility] Notes Date Note Type Note Provider Name [...] use of hearing protection. MARILU MITCHELL MD [address] [place] [address], [place], [address], [facility] - [facility] 12/08/2024 10:37:37
== END 2024-12-16 09:07 | disposition home or self-care (01) ==
PROVIDERS: PCP Internal Medicine; Visit Provider Internal Medicine Pulmonary Disease
DX: J45.50 Severe persistent asthma, uncomplicated (principal); Z91.09 Other allergy status, other than to drugs and biological substances
CPT/HCPCS: 99214

== ENCOUNTER → 2024-12-17 19:30 | Outpatient (REF) | payer OTHER, SELFPAY | LOC: HO.SL 19:30 | PROVIDERS: PCP Internal Medicine; Visit Provider Nurse Practitioner Family | DX: G47.30 Sleep apnea, unspecified (principal) | CPT/HCPCS: 95810 ==

== ENCOUNTER → 2024-12-17 21:34 | Outpatient (BNV) | payer OTHER, SELFPAY | PROVIDERS: PCP Internal Medicine; Visit Provider Psychiatry & Neurology Neurology | DX: G47.33 Obstructive sleep apnea (adult) (pediatric) (principal) | CPT/HCPCS: 95810 ==

== ENCOUNTER 2024-12-21 11:57 | Outpatient (AMB) | payer OTHER, SELFPAY ==
--- NOTE | 2024-12-21 12:15 | A.OFFVIS_ITS ---
Intake Visit Reasons: 2 weeks, overbook per mzk Allergies No Known Allergies Allergy (Verified 12/16/24 09:00) HPI Comments Details: 64 years old right-handed man with morbid obesity, hypertension in high serum protein with high kappa and lambda levels of unknown etiology, who came to [facility] in October of 2024 with right-sided facial weakness which was suggestive of a peripheral facial neuropathy type of lesion. At the same time, he was noted to be with atrial fibrillation, which was new for him. With that diagnosis, there was possibility of a stroke causing facial weakness. An MRI of brain was considered but because of his body weight he could not have the MRI at [facility]. On 11/26/2024 he had the MRI of brain at [facility], which, according to the report, revealed nonspecific curvilinear and nodular leptomeningeal enhancement along the surface of the inferior lateral right eliazar and brachial pontis, as well as cisternal segments of 7th and 8th cranial nerves. He said that his right ear was somewhat full and his hearing was somewhat affected. He did not have any headache. No other new symptoms. He was given dose of prednisone and valacyclovir when he was in hospital. Facial weakness has somewhat improved. He is presenting with Ocampo's Palsy. Initially developed facial nerve paralysis on the right side about a month ago following a history of head trauma sustained four years ago. The Ocampo's Palsy symptoms have improved significantly following antiviral and corticosteroid treatment received five days after symptom onset, though full recovery is not expected. Hearing difficulties have ensued, characterized by increased sensitivity to certain sound frequencies, which is attributed to nerve involvement from the Ocampo's Palsy. The patient does not report any systemic viral or infectious symptoms currently, and initial evaluations for Lyme disease and syphilis were negative. Recovery in facial function and nerve healing is being monitored, with gradual improvement reported in hearing ability. There remains a concern over underlying causes such as viral inflammation inferred from the symptoms and test findings. 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 Kidney calculi Asthma Surgical History Hx of colonoscopy (~02/04/12) Family History Mother Congestive heart failure Father Lung cancer Social History Household Members: Spouse Housing: House Do you presently have visiting nurse or other home services: No Alcohol intake: current Alcohol intake frequency: does not drink Patient Tobacco Use Status: Never used Tobacco e-Cigarette/Vaping Use: Never Used Second Hand Smoke Exposure: Yes service: No Current occupational status: employed Current occupation: [employer] Current occupational exposures/hazards: No Cognitive needs: No Hearing needs: No Vision needs: No Physical Exam Neuro Other: Mental Status: Alert and oriented to person, place, and time. Normal attention. Normal spontaneous speech, fluency, and comprehension. No obvious issues with mood and memory. Affect is appropriate. Cranial Nerves: CN II: Visual jean-baptiste full to confrontation, visual acuity intact. CN III, IV, : Pupils equal, round, reactive to light and accommodation. Extraocular movements are normal. CN V: Facial sensation is normal. CN VII: Mild right-sided facial flatness CN VIII: Hearing intact to bedside conversation is normal. CN IX, X: Palate elevates symmetrically. CN XI: Shoulder shrug and head turn symmetrical. CN XII: Tongue midline without atrophy or fasciculations. Motor: Bulk and tone normal in all extremities. No significant muscle weakness in arms and legs. No drift. Reflexes: Deep tendon reflexes 2+ and symmetric. Plantar response down-going bilaterally. Coordination: Mhzklw-yy-gfre and zdhb-qs-vnkc testing normal. No dysmetria. Gait and Station: No obvious gait abnormality. No ataxia or instability. Extrapyramidal: Full facial expressions and blinking. No rigidity. Movements are appropriate with no tremor or abnormality. Speech: Normal; no dysarthria or tremor. Results Reviewed Results Reviewed: Laboratory Tests 12/08/24 13:58 IgG Total 1609 H IgA Total 700 H IgM 79 T.pallidum Ab (EIA) Nonreactive Lyme Screen IgG & IgM <0.90 HIV 1&2 Ab/P24 Ag 4thGn Nonreactive Assessment & Plan Assessment & Plan (1) Facial neuropathy: Comment: MRI brain [facility]WO at [facility] in Nov 2024: Nonspecific curvilinear and nodular leptomeningeal enhancement along the surface of the inferior lateral right eliazar and brachial pontis, as well as cisternal segments of 7th and 8th cranial nerves. Code(s): G51.9 - Disorder of facial nerve, unspecified Category: Medical (2) Leptomeningeal enhancement on MRI of brain: Code(s): R90.89 - Other abnormal findings on diagnostic imaging of central nervous system Category: Medical Plan 64 years old man with significant obesity and right-sided facial neuropathy with the MRI of brain with contrast revealing leptomeningeal mild enhancement. Etiology of this was unclear but he was already significantly better other than mild facial weakness and mild problem with hearing. This time, he was reassured and educated. I have avoided doing lumbar puncture but might considered in future. Potential etiologies included viral syndrome or sarcoidosis but there was no indication of that at this time from other systems. Clinical follow-up would continue. Coding Level of Care Code Est Pt Level 5 (07843) Diagnoses Facial neuropathy G51.9 Leptomeningeal enhancement on MRI of brain R90.89
--- OUTSIDE RECORDS SUMMARY | 2024-12-21 15:13 | XMS_ITS | Data Portability ---
Author Organization [place] - [facility], Allergy Address [address] [place] [address] Care Team Providers Care Asphalt Paving Supervisor Name Role Phone RHYS GARCIA Primary Care Provider [phone] Assessment Encounter Date Assessment Date Assessment LastModified [...] high-frequency hearing loss in the left ear. [email or web address] Not available 12/08/2024 10:36:44 Plan of Treatment [...] Sensorineur al hearing loss of bilateral ears 196325853 Active 2024 FLAQUITO BENNETT [address] [facility],[place] [address], [place], [address], [facility] - [facility] 09:52:39 Bilateral tinnitus 3776845243008 Active 2024 MARILU MITCHELL MD [address] [address], [facility] [place], [address], [facility] - [facility] 5 10:31:17 [place] palsy of right side of face 4653601929867 9108 Active 2024 MARILU MITCHELL MD [address] [facility],[place] [address], [place], [address], [facility] 5 10:32:36 Epidemic vertigo 263171456 Active 2024 MARILU MITCHELL MD [address] [address], [place], [address], [facility] - [facility] 5 10:33:23 Sensorineur al hearing loss of right ear 7859585473 Active 2024 MARILU MITCHELL MD [address] [facility],[place] [address], [place], [address], [facility] - [facility] 5 10:33:49 Problem Notes None recorded. Procedures Surgical History Date Name Laterality Status Provider Name and Address Organization Details Recorded Time 12/08/2024 Comp Audio with Tymps - 33905 & [address] [facility], [place], [address], [facility] - [facility] 12/08/2024 10:04:52 Imaging Results None recorded. Procedure [...] Details Last Updated DateTime 12/08/2024 182.88 cm 791927.72 g Radha Moody [place] - [facility] 12/08/2024 09:06:48 Social History None recorded. Functional Status None recorded. Mental Status None recorded. Family History Nothing Reported. Medical History Condition Response Thyroid Problems Y Hypertension Y Asthma Y High Cholesterol Y GERD/Reflux Y Past Encounters Encounter ID Performer Location Encounter Start Date Encounter Closed Date Diagnosis/Indication Diagnosis SNOMED-CT Code Diagnosis ICD10 Code Diagnosis IMO Codes Diagnosis Note [id number] MARILU MITCHELL MD [facility] [address] [address] 12/08/2024 08:46:37 12/08/2024 10:35:40 Sensorineural hearing loss of bilateral ears 656020330 H90.3 [id number] Right Ear:Normal hearing through 1K Hz sloping to a profound SNHL with poor speech discrimina tion.Type A tympanogra m.Left Ear:Normal hearing through 1K Hz sloping to a moderate SNHL with excellent speech discrimina tion.Type A tympanogra m. Bilateral tinnitus 89959 26939 102 H93.13 [id number] [place] pals y of right side of face 5898468387 2386766 G51.0 [id number] Epidemic vertigo 0564457 01 H81.21 86276809 Sensorineu ral hearing loss of right ear 8540094842 H91.21 [id number] Health Concerns Section Related Observation LastModified by Organization Detai ls LastModified Time None Recorded Concern Status LastModified by Organization Details LastModified Time None Recorded Advance Directives Directive None Recorded Payers Insurance Date Sequence Insurance Name Policy Number Policy Amato Covered Member ID Amato Member ID Guarantor Name 12/08/2024 1 [facility] Kali Flores [facility] [id number] Kali [facility] Notes Date Note Type Note Provider [...] use of hearing protection. MARILU MITCHELL MD [address] [place] [address], [place], [address], [facility] - [facility] 12/08/2024 10:37:37
== END 2024-12-21 12:40 | disposition home or self-care (01) ==
LOC: HO.HSM 11:58
PROVIDERS: PCP Internal Medicine; Visit Provider Psychiatry & Neurology Neurology
DX: G51.9 Disorder of facial nerve, unspecified (principal); R90.89 Other abnormal findings on diagnostic imaging of central nervous system
CPT/HCPCS: 99213

== ENCOUNTER 2025-01-12 08:49 | Outpatient (AMB) | payer OTHER, SELFPAY ==
--- NOTE | 2025-01-12 09:00 | A.OFFVIS_ITS ---
Vital Signs 01/12/25 09:01 Height 6 ft Weight 415 lb BMI 56.3 BP 133/64 Blood Pressure Location Lt brachial Position Sitting Pulse 57 Pulse Oximetry (%) 98 Oxygen Delivery Method Room Air Intake Visit Reasons: Colonoscopy screening Intake Note: Patient new consult for 2nd pre Colonoscopy screening. Patient denies any GI issues. Personal Injury Paralegal Required: No Accompanied by: Self / Same As Patient Allergies No Known Allergies Allergy (Verified 01/12/25 08:59) Medication List - Last Reconciled 01/12/25 by Krysten Connolly CNP alcohol swabs 1 pad topical QIDACHS amiodarone 200 mg PO DAILY amlodipine 10 mg PO DAILY apixaban (Eliquis) 5 mg PO BID atorvastatin 80 mg PO BEDTIME 90 days blood sugar diagnostic (FreeStyle Lite Strips) Test four times a day or as directed. blood-glucose meter (FreeStyle Lite Meter kit) As Directed cetirizine 10 mg PO DAILY cholecalciferol (vitamin D3) 50 mcg PO DAILY 90 days dupilumab (Dupixent) 300 mg subcut Q2W furosemide 20 mg PO DAILY PRN lancets (FreeStyle Lancets) Test four times a day or as directed. levothyroxine 75 mcg PO DAILY@0600 montelukast 10 mg PO BEDTIME pen needle, diabetic Use four times a day or as directed. HPI HPI Colonoscopy screening: Details: Patient is a 64-year-old male with PMH of obesity, sleep apnea, hypothyroidism, hypertension, A-fib, diabetes, hearing loss to right ear . Referred by PCP for pre colonoscopy screening. Patient denies abdominal pain, change in bowel habits, constipation, incomplete evacuation, diarrhea (except after Colombian food), hematochezia, melena, nausea, vomiting, dysphagia, or heartburn. Reports daily BMs without difficulty or incomplete emptying. Noted weight loss of 75lb (20 lbs since October), attributed to intentional dieting and carbohydrate tracking. States no unexplained or unintentional weight loss. Only GI intolerance is to green peppers (burning sensation, avoided). Denies history of GI malignancy or GI-related hospitalizations. Relevant comorbidities include recent cerebrovascular event (possible stroke in October), afib (on chronic anticoagulation), asthma (on dupilumab, well controlled), significant weight history (current ~415 lbs), CEDRIC (pending CPAP, interested in Inspire), and history of hyperlipidemia and hypothyroidism. No current GI prescriptions or OTCs. Social hx: -ETOH use - Three cocktails/week (primarily whiskey) prior to October stroke; abstinent since -denies recreational drug use -non-smoker - family hx as below -denies personal hx of CA -tolerated anesthesia in the past without difficulty. 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 Kidney calculi Asthma Surgical History Hx of colonoscopy (~02/04/12) Family History Mother Congestive heart failure Father Lung cancer Social History Household Members: Spouse Housing: House Do you presently have visiting nurse or other home services: No Alcohol intake: current Alcohol intake frequency: does not drink Patient Tobacco Use Status: Never used Tobacco e-Cigarette/Vaping Use: Never Used Second Hand Smoke Exposure: Yes service: No Current occupational status: employed Current occupation: [employer] Current occupational exposures/hazards: No Cognitive needs: No Hearing needs: No Vision needs: No Review of Systems Const Reports as per HPI ENT Reports as per HPI Card Reports as per HPI Resp Reports as per HPI GI Reports as per HPI Reports as per HPI Physical Exam Vital Signs: Last Vital Signs Pulse 57 01/12/25 09:01 BP 133/64 01/12/25 09:01 Pulse Ox 98 01/12/25 09:01 Oxygen Delivery Method Room Air 01/12/25 09:01 BMI result Body Mass Index 56.3 Const General: healthy appearing, no acute distress and well developed Nutritional Appearance: obese Orientation/consciousness: patient oriented x3 HEENT Head: Yes normal to inspection, Yes normocephalic and Yes atraumatic Face and sinus: Yes normal facial exam Eyes General: appearance normal, both eyes and all related structures Neck Neck: Yes normal visual inspection Resp Effort & Inspection: normal respiratory effort, able to speak in complete sentences, no tracheal deviation and symmetric chest movement Cardio Jugular venous distension: no JVD GI Inspection: Yes obesity Auscultation: normal bowel sounds Neuro General: patient oriented x3 Gait exam (Neuro): Normal gait present Psych Appearance: grossly normal Mental Status: mental status grossly normal Speech and movement: Normal speech and movement present Affect: normal affect Attitude: cooperative Thought process: Normal thought process present Thought content: Normal thought content present Insight: Good insight present (Psych) Judgement: Good judgement present (Psych) Assessment & Plan Assessment & Plan (1) Colon cancer screening: Code(s): Z12.11 - Encounter for screening for malignant neoplasm of colon Category: Medical Plan: Patient due for screening; prior colonoscopy (2012, normal); no current GI sx or concerning history; comorbidities (afib, CEDRIC, obesity, recent CVA) increase procedural risk; patient preference to avoid colonoscopy at present. Additional Testing: - Cologuard (mt-sDNA) ordered; will reassess based on results. - Will coordinate with PCP/cardiology if colonoscopy becomes necessary (requires di-procedure AC management). Medication Management: - Continue current regimen; no changes at this visit. - Anticoagulation management deferred; to be addressed if colonoscopy scheduled. Lifestyle Recommendations: - Continue carb counting; consider intermittent fasting (book recommended). - Maintain avoidance of GI triggers (green peppers, grapefruit). - Continue weight management. Follow-Up: - Results will be reviewed with patient. - If Cologuard negative: repeat testing in 3 years. - If positive: revisit for counseling, coordinate colonoscopy and di- procedural clearance. - Routine GI f/u only as indicated by screening or new symptoms. (2) Metabolic syndrome: Code(s): E88.810 - Metabolic syndrome Category: Medical Plan: Obesity, sleep apnea, metabolic syndrome elements Additional Testing: - Awaiting sleep study, pending CPAP initiation, considering Inspire therapy Medication Management: - Continue all current therapies for comorbidities - No GI-directed meds advised Lifestyle Recommendations: - Continue structured diet; increase physical activity as tolerated - Avoid fad diets/weight loss meds (patient unwilling d/t adverse events observed in acquaintances) Follow-Up: - As directed by PCP, sleep, or pulmonary medicine Plan Follow-up as needed Time: I spent a total of 30 minutes on the date of encounter which includes: Preparing to see the patient (reviewed previous documentation, test results and medical history) Performing a medically appropriate exam and/or evaluation Ordering medications, tests, and procedures Documenting clinical information in the health record Orders: Orders AMB Cologuard Today Z12.11 - Encounter for screening for malignant neoplasm of colon Coding Level of Care Code New Pt New Pt Level 3 (96562) Patient Type New Diagnoses Colon cancer screening Z12.11 Metabolic syndrome E88.810
[2025-01-12 09:01] VITALS: BP 133/64; PULSE 57; O2SAT 98; BMI 56.3
--- OUTSIDE RECORDS SUMMARY | 2025-01-12 09:17 | XMS_ITS | Continuity of Care Document ---
Author Organization [place] - [facility], [facility] Address [address] [place] [address] Care Team Providers Care Application Integration Architect Name Role Phone RHYS GARCIA Primary Care [...] high-frequency hearing loss in the left ear. [email or web address] Not available 12/08/2024 10:36:44 Plan of Treatment Reminders Order Date Submit Date Provider Last Modified By Organization Details Last Modified Time Details Appointments Hearing Test Same Day (First) 2025 01:00P M Hearing Test Not available [...] record ed. BARCODE Not Available 2024 14:19:55 12/24/1911/26/2024 MRI, brain , w/wo contr ast No observ ation record ed. Not Available 2024 12:40:02 Result Notes None recorded. Problems Name Problem SNOMED Code Status Onset Date Resolution Date Notes Provider Name and Address Organization Details Recorded Time Sensorineur al hearing loss of bilateral ears 092560379 Active 2024 FLAQUITO BENNETT 100 [facility], E [facility] [place], [place], [address], [facility] - [facility] 5 09:52:39 Bilateral tinnitus 2622064011241 Active 2024 MARILU MITCHELL MD 100 [facility], E [facility] [place], [place], [address], [facility] - [facility] 5 10:31:17 [place] palsy of right side of face 8168043036862 9108 Active 2024 MARILU MITCHELL MD 100 [facility], E [facility] [place], [place], [address], [facility] - [facility] [place] 5 10:32:36 Epidemic vertigo 859942847 Active 2024 MARILU MITCHELL MD 100 [facility], E 100, [place], [address], [place] [facility] [place] 5 10:33:23 Sensorineur al hearing loss of right ear 1091338252 Active 2024 MARILU MITCHELL MD 100 [facility], E 100, [place], [address], [place] [facility] [place] 10:33:49 Problem Notes None recorded. Procedures Surgical History Date Name Laterality Status Provider Name and Address Organization Details Recorded Time 12/08/2024 Comp Audio with Tymps - 03410 & [address], AUD 100 [facility] 100, [place], [address], [place] [facility] 12/08/2024 10:04:52 Imaging Results None recorded. Procedure [...] Details Last Updated DateTime 12/08/2024 182.88 cm 511512.72 g Radha Moody [place] - [facility] 12/08/2024 09:06:48 Social History None recorded. Functional Status None recorded. Mental Status None recorded. Family History Nothing Reported. Medical History Condition Response Thyroid Problems Y Hypertension Y Asthma Y High Cholesterol Y GERD/Reflux Y Past Encounters Encounter ID Performer Location Encounter Start Date Encounter Closed Date Diagnosis/Indication Diagnosis SNOMED-CT Code Diagnosis ICD10 Code Diagnosis IMO Codes Diagnosis Note [id number] MARILU MITCHELL MD [facility] of [address] [address] 12/08/2024 08:46:37 12/08/2024 10:35:40 Sensorineural hearing loss of bilateral ears 660669403 H90.3 [id number] Right Ear:Normal hearing through 1K Hz sloping to a profound SNHL with poor speech discrimina tion.Type A tympanogra m.Left Ear:Normal hearing through 1K Hz sloping to a moderate SNHL with excellent speech discrimina tion.Type A tympanogra m. Bilateral tinnitus 82864 71337 102 H93.13 036850 [place] pals y of right side of face 8916949895 6652788 G51.0 4206625307 Epidemic vertigo 3805223 01 H81.21 94761570 Sensorineu ral hearing loss of right ear 8006078371 H91.21 [id number] Health Concerns Section Related Observation LastModified by Organization Detai ls LastModified Time None Recorded Concern Status LastModified by Organization Details LastModified Time None Recorded Payers Encounter Date Sequence Insurance Name Policy Number Policy Amato Covered Member ID Amato Member ID Guarantor Name 12/08/2024 1 [facility] Kali Munoz [id number] Kali Munoz Notes Date Note Type [...] use of hearing protection. MARILU MITCHELL MD [address] [place] [address], [place], [address], [place] [facility] 12/08/2024 10:37:37
--- OUTSIDE RECORDS SUMMARY | 2025-01-12 09:17 | XMS_ITS | Data Portability ---
Author Organization [place] - [facility], [facility] Address [address] [place] [address] Care Team Providers Care Electrical Integrator Name Role Phone RHYS GARCIA Primary Care [...] high-frequency hearing loss in the left ear. [email or web address] Not available 12/08/2024 10:36:44 Plan of Treatment [...] contr ast No observ ation record ed. [email or web address] Not Available 2024 12:40:02 Result Notes None recorded. Problems Name Problem SNOMED Code Status Onset Date Resolution Date Notes Provider Name and Address Organization Details Recorded Time Sensorineur al hearing loss of bilateral ears 029230488 Active 2024 FLAQUITO BENNETT 100 [facility] [place],[address], [place], [address], [facility] - [facility] 5 09:52:39 Bilateral tinnitus 2665500021955 Active 2024 MAR[facility] MITCHELL MD 100 [facility] [place], [place], [address], [facility] - [facility] 5 10:31:17 [place] palsy of right side of face 0063861961315 9108 Active 2024 MARILU MITCHELL MD 100 [facility] [place], [place], [address], [facility] - [facility] 5 10:32:36 Epidemic vertigo 740793293 Active 2024 MARILU MITCHELL MD 100 [facility] [place], [place], [address], [place] [facility] 5 10:33:23 Sensorineur al hearing loss of right ear 2791954305 Active 2024 MARILU MITCHELL MD 100 [facility] [place], [place], [address], [place] [facility] 10:33:49 Problem Notes None recorded. Procedures Surgical History Date Name Laterality Status Provider Name and Address Organization Details Recorded Time 12/08/2024 Comp Audio with Tymps - 78230 & [address], [facility] 100 [facility] 100, [place], [address], [facility] - [facility] 12/08/2024 10:04:52 Imaging Results None recorded. [...] Details Last Updated DateTime 12/08/2024 182.88 cm 994858.72 g Radha Moody [place] - [facility] 12/08/2024 09:06:48 Social History None recorded. Functional Status None recorded. Mental Status None recorded. Family History Nothing Reported. Medical History Condition Response Thyroid Problems Y Hypertension Y Asthma Y GERD/Reflux Y High Cholesterol Y Past Encounters Encounter ID Performer Location Encounter Start Date Encounter Closed Date Diagnosis/Indication Diagnosis SNOMED-CT Code Diagnosis ICD10 Code Diagnosis IMO Codes Diagnosis Note [id number] MARILU MITCHELL MD [facility] of [address] [address] 12/08/2024 08:46:37 12/08/2024 10:35:40 Sensorineural hearing loss of bilateral ears 305726575 H90.3 [id number] Right Ear:Normal hearing through 1K Hz sloping to a profound SNHL with poor speech discrimina tion.Type A tympanogra m.Left Ear:Normal hearing through 1K Hz sloping to a moderate SNHL with excellent speech discrimina tion.Type A tympanogra m. Bilateral tinnitus 65129 49276 102 H93.13 151437 [place] pals y of right side of face 7126138710 3969993 G51.0 9374949198 Epidemic vertigo 9772977 01 H81.21 88077444 Sensorineu ral hearing loss of right ear 4811921740 H91.21 [id number] Health Concerns Section Related Observation LastModified by Organization Detai ls LastModified Time None Recorded Concern Status LastModified by Organization Details LastModified Time None Recorded Advance Directives Directive None Recorded Payers Insurance Date Sequence Insurance Name Policy Number Policy Amato Covered Member ID Amato Member ID Guarantor Name 12/08/2024 1 [facility] Kali Munoz [id number] Kali Munoz Notes Date Note Type [...] use of hearing protection. MARILU MITCHELL MD [address] [place] [address], [place], [address], [facility] - [facility] 12/08/2024 10:37:37
== END 2025-01-12 09:37 | disposition home or self-care (01) ==
LOC: HO.HGI 08:50
PROVIDERS: PCP Internal Medicine; Visit Provider Nurse Practitioner Family
DX: Z01.818 Encounter for other preprocedural examination (principal); Z12.11 Encounter for screening for malignant neoplasm of colon; E88.810 Metabolic syndrome
CPT/HCPCS: 99203

== ENCOUNTER → 2025-01-25 07:49 | Outpatient (REF) | payer OTHER, SELFPAY ==
--- NOTE | 2025-01-25 07:51 | CA_ITS ---
Acquisition Time: 2025-01-25 08:11:19 Total Exercise Time: 00:02:00 Test Indications: Abnormal ECG CARDIOMYOPATHY Medications: SEE H&P Protocol: LEXISCAN Max HR: 91 BPM 58% of Pred: 156 BPM Max BP: 128/74 mmHG Max Work Load: 1.0 METS Pharmacological stress test with Lexiscan while pt marches in his chair, with reports of SOB and lightheadedness, with isolated PVCs, with normotensive response to injection. Nondiagnostic EKG for ischemia. In recovery, symptoms resolved and pt feeling back to baseline. Nuclear images pending. Test reviewed with Dr. Abrams. Referred By: Abril Carrasquillo Electronically Signed By: Gordon Cameron
== END ==
LOC: HO.CARD 07:49
PROVIDERS: PCP Internal Medicine; Visit Provider Nurse Practitioner Family
DX: I48.19 Other persistent atrial fibrillation (principal); I42.9 Cardiomyopathy, unspecified
CPT/HCPCS: 78452; 93017; A9500; J0280; J2785

== ENCOUNTER → 2025-01-25 07:51 | Outpatient (BNV) | payer OTHER, SELFPAY | PROVIDERS: PCP Internal Medicine | DX: I49.3 Ventricular premature depolarization (principal); R06.02 Shortness of breath; R42 Dizziness and giddiness | CPT/HCPCS: 78452; 93016; 93018 ==

== ENCOUNTER 2025-02-15 09:55 | Outpatient (AMB) | payer OTHER, SELFPAY ==
--- NOTE | 2025-02-15 09:58 | MHC.OFFVIS ---
Vital Signs 02/15/25 09:59 Height 6 ft Weight 429 lb BMI 58.2 BP 158/108 H Blood Pressure Location Rt brachial Position Sitting Pulse 68 Pulse Source Pulse Oximeter Pulse Oximetry (%) 98 Oxygen Delivery Method Room Air Intake Visit Reasons: Discuss Sleep Study Allergies No Known Allergies Allergy (Verified 02/15/25 10:04) HPI HPI Discuss Sleep Study: Details: 64-year-old gentleman, nonsmoker, followed for underlying environmental allergies and severe persistent allergic asthma.? He continues on Dupixent, Trelegy, Singulair, Flonase, and albuterol MDI/nebs with good control of his asthma and allergy symptoms.? He denies any recent exacerbations. His sleep study shows severe CEDRIC. 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 Kidney calculi Asthma Surgical History Hx of colonoscopy (~02/04/12) Family History Mother Congestive heart failure Father Lung cancer Social History Household Members: Spouse Housing: House Do you presently have visiting nurse or other home services: No Alcohol intake: current Alcohol intake frequency: does not drink Patient Tobacco Use Status: Never used Tobacco e-Cigarette/Vaping Use: Never Used Second Hand Smoke Exposure: Yes service: No Current occupational status: employed Current occupation: common [employer] Current occupational exposures/hazards: No Cognitive needs: No Hearing needs: No Vision needs: No Review of Systems Const Denies daytime sleepiness, Denies excessive sweating, Denies fatigue, Denies fever(s), Denies lethargy, Denies malaise, Denies night sweats, Denies snoring and Denies weight loss Eyes Denies blurry vision and Denies itchy eyes ENT Denies nasal congestion, Denies post nasal drip, Denies sinus pain, Denies sinus pressure and Denies other ( Thrush) Card Denies chest pain, Denies pedal edema, Denies dyspnea, Denies orthopnea and Denies paroxysmal nocturnal dyspnea Resp Denies cough, Denies hemoptysis, Denies excessive phlegm production, Denies dyspnea, Denies snoring and Denies wheezing GI Denies abdominal pain and Denies heartburn Musc Denies myalgias, Denies arthralgias and Denies joint swelling Skin/Breast Denies rash Neuro Denies memory loss and Denies seizure-like activity Psych Denies abnormal sleep pattern, Denies anxiety and Denies memory loss Endo Denies excessive sweating, Denies fatigue and Denies heat intolerance Fabio/Lymph Denies easy bruising Aller/Immun Denies itchy eyes, Denies seasonal rhinorrhea and Denies wheezing Physical Exam Vital Signs: Last Vital Signs Pulse 68 02/15/25 09:59 BP 158/108 H 02/15/25 09:59 Pulse Ox 98 02/15/25 09:59 Oxygen Delivery Method Room Air 02/15/25 09:59 BMI result Body Mass Index 58.2 Const General: no acute distress and alert Nutritional Appearance: obese Orientation/consciousness: Other orientation findings ( oriented) HEENT Head: Yes atraumatic Eyes General: appearance normal, both eyes and all related structures Sclerae: sclerae normal EOM: EOMs intact bilaterally Neck Neck: Yes supple Lymphatic: no lymphadenopathy noted Resp Effort & Inspection: normal respiratory effort and no use of accessory muscles Auscultation: clear to auscultation bilaterally Cardio Rate: regular rate Rhythm: regular rhythm Heart sounds: no gallops, no murmurs and no rubs Skin General skin exam: other ( warm) Extrem General: No clubbing, No cyanosis and No edema Assessment & Plan Assessment & Plan (1) Severe persistent allergic asthma: Code(s): J45.50 - Severe persistent asthma, uncomplicated Category: Medical Plan: Well controlled on current regimen on Trelegy, Dupixent, and albuterol MDI. (2) Sleep apnea in adult: Code(s): G47.30 - Sleep apnea, unspecified Category: Medical Plan: Severe CEDRIC, will start on APAP of 6-16 cm of water. (3) Environmental allergies: Code(s): Z91.09 - Other allergy status, other than to drugs and biological substances Category: Medical Plan: Controlled on Dupixent, montelulast, and Zyrtec. Coding Level of Care Code Est Pt Level 4 (07100) Add On Problem Visit Only Diagnoses Severe persistent allergic asthma J45.50 Sleep apnea in adult G47.30 Environmental allergies Z91.09
[2025-02-15 09:59] VITALS: BP 158/108; PULSE 68; O2SAT 98; BMI 58.2
--- OUTSIDE RECORDS SUMMARY | 2025-02-15 10:47 | XMS_ITS | Data Portability ---
Author Organization [place] - [facility], [facility] Address [address] [place] [address] Care Team Providers Care Fleet Director Name Role Phone RHYS GARCIA Primary Care [...] high-frequency hearing loss in the left ear. [email or web address] Not available 12/08/2024 10:36:44 Plan of Treatment [...] Sensorineur al hearing loss of bilateral ears 973375899 Active 2024 FLAQUITO BENNETT [address] [place],[address], [place], [address], [facility] - [facility] 5 09:52:39 Bilateral tinnitus 4197566441538 Active 2024 MARILU MITCHELL MD 100 [facility] [place], [place], [address], [facility] - [facility] 5 10:31:17 [place] palsy of right side of face 0117916998166 9108 Active 2024 MARILU MITCHELL MD 100 [facility] [place], [place], [address], [facility] - [facility] 5 10:32:36 Epidemic vertigo 185595065 Active 2024 MARILU MITCHELL MD 100 [facility] [place], [place], [address], [place] [facility] 5 10:33:23 Sensorineur al hearing loss of right ear 2662424758 Active 2024 MARILU MITCHELL MD 100 [facility] [place], [place], [address], [place] [facility] 10:33:49 Problem Notes None recorded. Procedures Surgical History Date Name Laterality Status Provider Name and Address Organization Details Recorded Time 12/08/2024 Comp Audio with Tymps - 94474 & [address], [facility] 100 [facility] 100, [place], [address], [facility] - [facility] 12/08/2024 10:04:52 Imaging Results None recorded. [...] Details Last Updated DateTime 12/08/2024 182.88 cm 187279.72 g Radha Moody [place] - [facility] 12/08/2024 09:06:48 Social History None recorded. Functional Status None recorded. Mental Status None recorded. Family History Nothing Reported. Medical History Condition Response Thyroid Problems Y Hypertension Y Asthma Y High Cholesterol Y GERD/Reflux Y Past Encounters Encounter ID Performer Location Encounter Start Date Encounter Closed Date Diagnosis/Indication Diagnosis SNOMED-CT Code Diagnosis ICD10 Code Diagnosis IMO Codes Diagnosis Note [id number] MARILU MITCHELL MD [facility] of [address] [address] 12/08/2024 08:46:37 12/08/2024 10:35:40 Sensorineural hearing loss of bilateral ears 579332650 H90.3 [id number] Right Ear:Normal hearing through 1K Hz sloping to a profound SNHL with poor speech discrimina tion.Type A tympanogra m.Left Ear:Normal hearing through 1K Hz sloping to a moderate SNHL with excellent speech discrimina tion.Type A tympanogra m. Bilateral tinnitus 39763 37933 102 H93.13 692850 [place] pals y of right side of face 8804015169 2637888 G51.0 4813225969 Epidemic vertigo 7824747 01 H81.21 17167752 Sensorineu ral hearing loss of right ear 3528446480 H91.21 [id number] Health Concerns Section Related Observation LastModified by Organization Detai ls LastModified Time None Recorded Concern Status LastModified by Organization Details LastModified Time None Recorded Advance Directives Directive None Recorded Payers Insurance Date Sequence Insurance Name Policy Number Policy Amato Covered Member ID Amato Member ID Guarantor Name 12/08/2024 1 [facility] Kali Munoz [id number] Kali Munoz Notes Date Note Type [...] use of hearing protection. MARILU MITCHELL MD [address] [place] [address], [place], [address], [facility] - [facility] 12/08/2024 10:37:37
--- OUTSIDE RECORDS SUMMARY | 2025-02-15 10:47 | XMS_ITS | Continuity of Care Document ---
Author Organization [place] - [facility], [facility] Address [address] [place] [address] Care Team Providers Care Manufacturing Engineer Machining Name Role Phone RHYS GARCIA Primary Care [...] high-frequency hearing loss in the left ear. [email or web address] Not available 12/08/2024 10:36:44 Plan of Treatment [...] contr ast No observ ation record ed. [email or web address] Not Available 2024 12:40:02 Result Notes None recorded. Problems Name Problem SNOMED Code Status Onset Date Resolution Date Notes Provider Name and Address Organization Details Recorded Time Sensorineur al hearing loss of bilateral ears 654804412 Active 2024 FLAQUITO BENNETT 100 [facility], E [facility], [place], [address], [facility] - [facility] 5 09:52:39 Bilateral tinnitus 8380821513958 Active 2024 MARILU MITCHELL MD 100 [facility], E [facility], [place], [address], [facility] - [facility] 5 10:31:17 [place] palsy of right side of face 5413399043269 9108 Active 2024 MARILU MITCHELL MD 100 [facility], E [facility], [place], [address], [facility] - [facility] [place] 5 10:32:36 Epidemic vertigo 547802314 Active 2024 MARILU MITCHELL MD 100 [facility], [address], [place], [address], [place] [facility] [place] 5 10:33:23 Sensorineur al hearing loss of right ear 1030740215 Active 2024 MARILU MITCHELL MD 100 [facility], [address], [place], [address], [place] [facility] [place] 10:33:49 Problem Notes None recorded. Procedures Surgical History Date Name Laterality Status Provider Name and Address Organization Details Recorded Time 12/08/2024 Comp Audio with Tymps - 14117 & [address], AUD 100 [facility] 100, [place], [address], [place] [facility] 12/08/2024 10:04:52 Imaging Results None recorded. [...] Details Last Updated DateTime 12/08/2024 182.88 cm 052052.72 g Radha Moody [place] - [facility] 12/08/2024 09:06:48 Social History None recorded. Functional Status None recorded. Mental Status None recorded. Family History Nothing Reported. Medical History Condition Response Thyroid Problems Y Hypertension Y Asthma Y High Cholesterol Y GERD/Reflux Y Past Encounters Encounter ID Performer Location Encounter Start Date Encounter Closed Date Diagnosis/Indication Diagnosis SNOMED-CT Code Diagnosis ICD10 Code Diagnosis IMO Codes Diagnosis Note [id number] MARILU MITCHELL MD [facility] of [address] [address] 12/08/2024 08:46:37 12/08/2024 10:35:40 Sensorineural hearing loss of bilateral ears 461360171 H90.3 [id number] Right Ear:Normal hearing through 1K Hz sloping to a profound SNHL with poor speech discrimina tion.Type A tympanogra m.Left Ear:Normal hearing through 1K Hz sloping to a moderate SNHL with excellent speech discrimina tion.Type A tympanogra m. Bilateral tinnitus 26654 64439 102 H93.13 638194 [place] pals y of right side of face 9117875921 2181297 G51.0 0265714049 Epidemic vertigo 1813469 01 H81.21 95103524 Sensorineu ral hearing loss of right ear 4719752382 H91.21 [id number] Health Concerns Section Related Observation LastModified by Organization Detai ls LastModified Time None Recorded Concern Status LastModified by Organization Details LastModified Time None Recorded Payers Encounter Date Sequence Insurance Name Policy Number Policy Amato Covered Member ID Amato Member ID Guarantor Name 12/08/2024 1 [facility] Kali Munoz [id number] Kali Munoz Notes Date Note Type [...] use of hearing protection. MARILU MITCHELL MD [address] [place] [address], [place], [address], [place] [facility] 12/08/2024 10:37:37
== END 2025-02-15 10:23 | disposition home or self-care (01) ==
LOC: HO.HPS 09:56
PROVIDERS: PCP Internal Medicine; Visit Provider Internal Medicine Pulmonary Disease
DX: J45.50 Severe persistent asthma, uncomplicated (principal); G47.30 Sleep apnea, unspecified; Z91.09 Other allergy status, other than to drugs and biological substances
CPT/HCPCS: 99214